=== PATIENT | male | born 1950 | race Caucasian/White ===

== ENCOUNTER → 2017-07-01 16:40 | Outpatient (CLI) | payer MEDICARE, SELFPAY ==
--- NOTE | 2017-07-01 08:00 | PROSBIL_PTH ---
PATIENT: JAMILAH PALAFOX LOC: [facility] U#:[id number] AGE/SX: 74/M ROOM: RE07/01/[address]: Dr. Carlos Wang MD : 1950 BED: DIS: SPEC #: [id number] RECD: 07/01/17 16:31 STATUS: JAMILA CECE #: [id number] NITHIN: 07/01/17 08:[address]: Carlos Wang DEPT: SURGICAL PATHOLOGY RECD BY: Jonas Dickinson ENTERED: 07/02/17 12:38 SP TYPE: PROST BX RIGO DR: Dr. Boy Verduzco III, MD Tissues: A - PROSTATE RIGHT B - PROSTATE RIGHT C - PROSTATE RIGHT D - PROSTATE LEFT E - PROSTATE LEFT F - PROSTATE LEFT Procedures: PROSTATE BX HEADER OPERATION: Prostate biopsy PRE-OP DIAGNOSIS: Elevated PSA TISSUE SUBMITTED: A - Right apex, B - Right mid, C - Right base, D - Left apex, E - Left mid, F - Left base MICROSCOPIC DIAGNOSIS A. Right prostate, apex, core biopsy: Adenocarcinoma: [place] grade: 8 (4+4) Cores involved: 1 out of 2 Tissue involved: 30% Greatest tumor length: 4.5 mm, discontinuous Perineural invasion: Positive B. Right prostate, mid, core biopsy: Adenocarcinoma: Jcarlos grade: 7 (4+3) Cores involved: 2 out of 2 Tissue involved: 35% Greatest tumor length: 6 mm C. Right prostate, base, core biopsy: Adenocarcinoma: Jcarlos grade: 7 (4+3) Cores involved: 2 out of 2 Tissue involved: 60% Greatest tumor length: 7 mm, discontinuous Perineural invasion: Positive D. Left prostate, apex, core biopsy: Adenocarcinoma: [place] grade: 7 (4+3) Cores involved: 2 out of 2 Tissue involved: 70% Greatest tumor length: 5.5 mm, discontinuous E. Left prostate, mid, core biopsy: Adenocarcinoma: [place] grade: 7 (4+3) Cores involved: 2 out of 2 Tissue involved: 95% Greatest tumor length: 10 mm, discontinuous Perineural invasion: Positive F. Left prostate, base, core biopsy: Adenocarcinoma: Jcarlos grade: 7 (4+3) Cores involved: 2 out of 2 Tissue involved: >95% Greatest tumor length: 12.5 mm, discontinuous Perineural invasion: Positive AM:christiano 07/03/17 MICROSCOPIC DESCRIPTION Slides are reviewed. GROSS DESCRIPTION A - Received is one container designated prostate, right apex. The specimen consists of two elongated fragments of light saucedo-white soft tissue measuring 0.5 and 1.5 cm in length and 0.1 cm in diameter. The specimen is totally submitted in one cassette. B - Received is one container designated prostate, right mid. The specimen consists of two elongated fragments of light saucedo-white soft tissue measuring 1.4 and 2 cm in length and 0.1 cm in diameter. The specimen is totally submitted in one cassette. C - Received is one container designated prostate, right base. The specimen consists of two elongated fragments of light saucedo-white soft tissue each measuring 1.5 cm in length and 0.1 cm in diameter. The specimen is totally submitted in one cassette. D - Received is one container designated prostate, left apex. The specimen consists of two elongated fragments of light saucedo-white soft tissue measuring 1 and 1.2 cm in length and 0.1 cm in diameter. The specimen is totally submitted in one cassette. E - Received is one container designated prostate, left mid. The specimen consists of two elongated fragments of light saucedo-white soft tissue each measuring 1.5 cm in length and 0.1 cm in diameter. The specimen is totally submitted in one cassette. F - Received is one container designated prostate, left base. The specimen consists of two elongated fragments of light saucedo-white soft tissue each measuring 1.8 cm in length and 0.1 cm in diameter. The specimen is totally submitted in one cassette. / SJ:rg 07/02/17 TC:0 CPT: G0146
== END ==
PROVIDERS: Family Provider Family Medicine; PCP Family Medicine; Visit Provider Urology
DX: R97.20 Elevated prostate specific antigen [PSA] (principal)
CPT/HCPCS: 88305; G0416

== ENCOUNTER → 2017-07-09 09:33 | Outpatient (CLI) | payer MEDICARE, SELFPAY ==
--- NOTE | 2017-07-09 09:59 | NM_ITS ---
CLINICAL: 67-year-old male with reported history of carcinoma of the prostate. WHOLE BODY 99m Tc MDP RADIONUCLIDE BONE SCINTIGRAPHY COMPARISON: None available FINDINGS: Following the intravenous administration of 2420 mCi of 99m Tc MDP, whole body bone images reveal: 1. Increased radiopharmaceutical concentration is identified in the sternoclavicular and acromioclavicular compartments of both shoulders, medial glenohumeral compartment of the right shoulder, bilateral elbow and wrist articulations, right-left hands, mid cervical spine posteriorly on the left, fifth lumbar vertebra posteriorly on the left and right, knees bilaterally. 2. The remaining skeletal structures are scintigraphically unremarkable with normal-appearing renal images and urinary bladder activity identified. Asymmetric increased uptake is noted in the greater trochanteric aspect of the left proximal femur most consistent with periostitis and/or trochanteric bursitis. NM/Bone Scan Whole Body IMPRESSION: 1. The increased radiopharmaceutical concentration identified in the bilateral shoulders, right and left elbows, wrist reticulations bilaterally, both hands, cervical and lumbar spine, knees bilaterally is most consistent with degenerative arthritis. 2. There is no definitive typical scintigraphic evidence of diffuse axial skeletal metastatic disease on the current examination. Electronically Signed: Hugo Fitzpatrick DO at 23:13 EDT Tel , Service support ,
== END ==
PROVIDERS: Family Provider Family Medicine; PCP Family Medicine; Visit Provider Urology
DX: C61 Malignant neoplasm of prostate (principal)
CPT/HCPCS: 78306

== ENCOUNTER → 2017-07-11 07:09 | Outpatient (CLI) | payer MEDICARE, SELFPAY ==
--- NOTE | 2017-07-11 07:12 | CT_ITS ---
STUDY: CT ABDOMEN AND PELVIS WITH CONTRAST REASON FOR EXAM: Male, 67 years old. Newly diagnosed prostate carcinoma. RADIATION DOSAGE (If Supplied By Facility): CTDIvol = ( 16.58 ) mGy, DLP = ( 1060.94 ) mGycm TECHNIQUE: Transaxial images were obtained from the dome of the diaphragm to the symphysis pubis without oral contrast. 100 ml of Isovue 300 contrast was administered. Sagittal and coronal images were reconstructed. Individualized dose optimization techniques were used for this CT. COMPARISON: None. FINDINGS: Mild degree of the increased markings at the lung bases suggestive of bibasilar dependent atelectasis. Focally calcified pleural plaques at the right lung base. The visualized portions of the heart are within normal limits. Normal liver. There are multiple small gallstones along the dependent portion of the gallbladder.. There are multiple benign calcified granulomata of the spleen. Normal pancreas. Normal bilateral adrenal glands. There is a 1.9 cm x 1.5 cm cyst along the medial aspect of the midportion of the left kidney as well as a 1.6 cm cyst along the lateral portion of the right kidney. There is also evidence of a 1.6 cm cyst in the inferior pole of the right kidney. There is a 2.3 cm x 2.1 cm cyst in the posterior medial aspect of the upper pole of the left kidney. There is a small hiatal hernia. Normal small intestine. There are multiple colonic diverticula consistent with diverticulosis. The appendix is visualized and appears normal. There is scattered atherosclerotic calcification of the abdominal aorta, without a demonstrated aneurysm. Normal inferior vena cava. Normal retroperitoneum. Normal urinary bladder. There is enlargement of the prostate gland. It measures 4.9 cm x 5.2 cm. This causes indentation at the bladder base. There is enlargement of the seminal vesicles bilaterally more prominent on the left side. Normal abdominal wall. There are degenerative changes of the visualized lumbar spine. Minimal anterior listhesis of L4 on L5 without spondylolysis. CT/Abdomen/Pelvis W IV Cont ONLY IMPRESSION: Bilateral renal cysts. Enlarged prostate with indentation of the bladder base. Enlargement of the seminal vesicles more prominent on the left side. Small gallstones. Electronically Signed: Howard Wahl MD at 8:53 EDT Tel [phone], Service support ,
[2017-07-11 07:31] LABS: CREATININE FINGERSTICK 0.9 mg/dL (0.70-1.30); EGFR FINGERSTICK > 60.0000 mL/min (>60)
== END ==
PROVIDERS: Family Provider Family Medicine; PCP Family Medicine; Visit Provider Urology
DX: Z01.812 Encounter for preprocedural laboratory examination (principal); C61 Malignant neoplasm of prostate
CPT/HCPCS: 74177; Q9967

== ENCOUNTER → 2017-08-15 10:55 | Outpatient (CLI) | payer MEDICARE, SELFPAY ==
--- NOTE | 2017-08-15 11:09 | MRI_ITS ---
STUDY: MR PELVIS WITH T WITHOUT CONTRAST REASON FOR EXAM: Male, 67 years old. PROSTATE CANCER staging, prev bx, TECHNIQUE: Standardized fat and water weighted pulse sequences were obtained in all 3 orthogonal planes, pre-and post contrast administration. 10 ml of Gadavist contrast material was administered intravenously for the contrast portion of the examination. COMPARISON: CT Abdomen/Pelvis Jul 11 2017 7:20am FINDINGS: Normal urinary bladder. Normal visualized colon. Degenerative findings of the symphysis pubis. Prostate gland: The anterior fibromuscular stroma and central zone appear intact. The central gland demonstrates normal signal characteristics. Rectum is unremarkable. Levator ani muscle is not disrupted. The penile bulb is embraced by an intact inferomedial levator ani muscle. No areas of abnormal enhancement. Normal visualized RIGHT neurovascular bundles. A 48 x 26mm focal lesion in the left peripheral zone has mixed hyperintense (some have low and some areas have high signal) signal on the DWI and it is hypointense on ADC is highly suspicious for cancer. Axial T2WI shows a large hypointense lesion (erased charcoal sign) in the left peripheral zone with extension into the left seminal vesicles. The lesion shows a broad-base contact and bulging of the capsule. There is extension into the left transitional zone. There is mass effect and displacement of the urethra to the right side. There is abnormal signal in the urethra concerning for invasion. There is abutment along the left Denonvilliers fascia. There is concern for invasion into the left neurovascular bundle. There is no pelvic fluid. There is no pelvic mass lesion or lymphadenopathy. Normal visualized pelvic arteries. Normal osseous structures. Normal abdominal wall. MRI/Pelvis W/WO Contrast IMPRESSION: There is a large left peripheral zone mass with extension into the left transitional zone. There is extracapsular extension into the left seminal vesicle and likely into the left neurovascular bundle. There is also concern for invasion into the urethra. Electronically Signed: Giovanny Wiggins MD at 20:55 EDT , Service support ,
== END ==
PROVIDERS: Family Provider Family Medicine; PCP Family Medicine; Visit Provider Urology
DX: C61 Malignant neoplasm of prostate (principal)
CPT/HCPCS: 72197; A9585

== ENCOUNTER 2017-08-21 07:30 | Inpatient (IN) | payer MEDICARE, SELFPAY ==
[2017-08-15 14:07] VITALS: BP 117/77; PULSE 63; RESP 17; TEMP 36.6; O2SAT 97; BMI 28.8
--- NOTE | 2017-08-15 14:20 | SDCEKG_ITS ---
Test Reason : Blood Pressure : / mmHG Vent. Rate : 060 BPM Atrial Rate : 060 BPM P-R Int : 178 ms QRS Dur : 100 ms QT Int : 418 ms P-R-T Axes : 018 013 033 degrees QTc Int : 418 ms Normal sinus rhythm Normal ECG Confirmed by DARIEN SANDOVAL, BRINA ([id number]), senior technical editor SON BOONE ([id number]) on 08/19/2017 3:56:35 PM Referred By: Carlos Wang Confirmed By:BRINA LEDEZMA MD
[2017-08-15 14:56] LABS: Hematocrit 41.2 % (40-54); Hemoglobin 13.9 g/dl (13.0-16.5); Mean Corp Hgb Conc 33.7 g/gl (32-36); Mean Corpuscular Hgb 29.6 pg (27.0-32.0); Mean Corpuscular Volume 87.7 fL (80-94); Mean Platelet Vol. 10.6 fl (6.2-12.0); Platelet Count 178 K/mm3 (150-450); RBC Distribution Width CV 14.1 % (11.6-14.6); White Blood Count 4.9 K/mm3 (4.4-11.0)
[2017-08-15 15:01] LABS: Scan Indicated on CBC? Y/N NO
[2017-08-21] VITALS (10 sets, daily range): BP systolic 124–143; BP diastolic 63–91; PULSE 64–120; RESP 14–16; TEMP 36.2–37.1; O2SAT 93–99; BMI 28.8
--- NOTE | 2017-08-21 | PROST_PTH ---
PATIENT: JAMILAH PALAFOX LOC: [facility] U#:[id number] AGE/SX: 67/M ROOM: [facility] RE08/21/[address]: Dr. Carlos Wang MD : 1950 BED: 1 DIS: 08/23/2017 SPEC #: [id number] RECD: 08/21/17 12:33 STATUS: JAMILA CECE #: [id number] NITHIN: 08/21/17 00:[address]: Carlos Wang DEPT: SURGICAL PATHOLOGY RECD BY: Patience Yu ENTERED: 08/21/17 14:27 SP TYPE: PROSTATE OTHR DR: Dr. Boy Verduzco III, MD Tissues: A - Prostate, NOS B - Prostate, NOS C - Prostate, NOS D - Lymph node of pelvis, NOS E - Lymph node of pelvis, NOS F - Adipose tissue Procedures: Frozen Section (charge) Surgery Specimen Level IV Surgery Specimen Level HEADER OPERATION: Laparoscopic robotic radical prostatectomy PRE-OP DIAGNOSIS: Prostate cancer, elevated PSA TISSUE SUBMITTED: A ? Apical margin sent to lab for FS, B ? Apical margin #2 sent to lab for FS, C ? Prostate, D ? Right pelvic lymph node, E ? Left pelvic lymph node, F ? Fat over prostate FROZEN SECTION DIAGNOSIS A. Apical margin, biopsy: Positive for carcinoma. B. Apical margin #2, biopsy: Negative for carcinoma. SJ:christiano 08/21/17 MICROSCOPIC DIAGNOSIS A. Apical margin, biopsy: Positive for carcinoma. B. Apical margin #2, biopsy: Negative for carcinoma. C. Prostate, radical prostatectomy: Prostatic adenocarcinoma. See cancer summary below. D. Right pelvic lymph node, biopsy: One lymph node, negative for metastatic carcinoma. E. Left pelvic lymph node, biopsy: One lymph node, negative for metastatic carcinoma. F. Fat over prostate: Fragments of mature adipose tissue, negative for carcinoma. PROSTATE CANCER (RADICAL) SUMMARY: (Including specimens A-F) Procedure ? radical prostatectomy Prostate size ? 6 cm transversely, 4.5 cm anterior-posteriorly, 5 cm craniocaudally Prostate weight ? 84 gm Lymph node sampling ? pelvic lymph node dissection, right and left Histologic type ? adenocarcinoma (acinar) Histologic grade (Princeton Pattern): Primary pattern - 5 Secondary pattern - 4 Tertiary pattern ? not applicable Total Princeton score - 9 Tumor Quantitation: Proportion (%) of prostate involved by tumor ? 70-80% Extraprostatic extension - present Seminal vesicle invasion ? present, bilateral Margins ? Basal margin is involved by the tumor. See comment. Treatment effect on carcinoma ? no known presurgical therapy. Lymph-Vascular invasion ? not identified Perineural invasion ? present, frequent Regional lymph nodes: Number examined - 2 Number involved - 0 Distant metastasis ? not applicable Additional pathologic findings - - Benign prostatic hyperplasia. - A calcified nodule, prostate right lobe, see comment.. - Seminal vesicle, left ? a calcified nodule, see comment.. Ancillary studies ? not performed. PATHOLOGIC STAGE: pT3b pN0 Mx The above summary is in compliance with [employer] [place] [employer] (CAP) Cancer Protocols Checklist and [place] [employer] Committee on Cancer (AJCC), Staging Manual, 8th Ed. MACK:christiano 08/27/17 COMMENT The tumor is present from apical to basal portion of the prostate involving right and left lobes. Apical and basal margin in the prostate specimen are positive for tumor; however, specimen ?B? apical margin is negative for carcinoma. Calcified nodules on surface of the prostate and seminal vesicle may represent calcified and obliterated blood vessels. Please make reference to previous specimen ([id number]), right prostate and left prostate,, apex, mid, base with diagnoses of adenocarcinoma. MICROSCOPIC DESCRIPTION Slides are reviewed. GROSS DESCRIPTION A - Received fresh for frozen section diagnosis labeled with the patient's name is a specimen designated apical margin. The specimen consists of a piece of saucedo soft tissue measuring 1 x 0.5 x 0.2 cm. The entire specimen is submitted for frozen section diagnosis in one cassette. / MACK:christiano 08/21/17 B - Received fresh for frozen section diagnosis labeled with the patient's name is a specimen designated apical margin #2. The specimen consists of a piece of saucedo soft tissue measuring 0.4 x 0.2 x 0.1 cm. The entire specimen is submitted for frozen section diagnosis in one cassette. / SJ:rg 08/21/17 C - Received in fixative is one container labeled with the patient's name and designated prostate. The specimen consists of a radical prostatectomy specimen consisting of prostate and bilateral seminal vesicles weighing 84 gm. The prostate measures 6 cm transversely, 4.5 cm anterior-posteriorly and 5 cm craniocaudally. The right seminal vesicle measures 2.5 x 1.5 x 0.5 cm and right vas deferens measures 3 cm in length and 0.4 cm in diameter. The left seminal vesicle measures 3 x 2 x 0.6 cm and the left vas deferens measures 2.5 cm in length and 0.3 cm in diameter. A nodule is noted on the right lateral surface in the middle portion of the prostate. This nodule is inked orange. The prostate is inked as follows: anterior surface ? yellow, posterior surface ? black, right lateral surface ? blue, left lateral surface ? green. The right seminal vesicle and vas deferens is inked as follows: anterior ? blue, posterior ? black. The left seminal vesicle and vas deferens is inked as follows: anterior ? green, posterior ? black. Serial sections do not reveal any obvious mass lesion. 1[address] [place] sections are submitted in 20 cassettes as follows: 1 - right seminal vesicle and vas deferens, 2 ? left seminal vesicle and vas deferens, 3 ? nodule on the right lateral lobe of the prostate, submitted after decalcification, 4 - apical margin, enface, 5 ? bladder base margin, enface, 6-11 ? apical portion prostate, 12-15 ? middle portion prostate, 16-20 ? basal portion prostate (cassette 20 contains the most basal portion of the prostate. Sections will be submitted after additional fixation. / SJ:rg 08/22/17 D - Received in fixative is one container labeled with the patient's name and designated right pelvic lymph node. The specimen consists of three pieces of yellow adipose tissue measuring in aggregate 3.5 x 3 x 1.5 cm. One possible lymph node is identified measuring 3 cm in greatest dimension. The entire specimen is submitted in three cassettes as follows: 1 & 2 ? bisected lymph node and attached adipose tissue, 3 ? rest of the specimen. Sections will be submitted after additional fixation. / SJ:christiano 08/22/17 E - Received in fixative is one container labeled with the patient's name and designated left pelvic lymph node. The specimen consists of a piece of yellow adipose tissue measuring 4 x 3 x 1 cm. One lymph node is identified measuring 4.5 cm in greatest dimension. The entire specimen is submitted in three cassettes. Cassettes 1 & 2 contain the lymph node. Sections will be submitted after additional fixation. / SJ:christiano 08/22/17 F - Received in fixative is one container labeled with the patient's name and designated fat over prostate. The specimen consists of two pieces of yellow adipose tissue measuring 4 x 3.5 x 1.5 cm. No mass lesion is identified. The entire specimen is submitted in four cassettes. / SJ:christiano 08/22/17 TC:0 CPT: 70687, 31223 x5, 65865 x2, 35706
[2017-08-21] MEDS: Cefazolin 2 GM in 0.9% Normal Saline 100 ML IV (09:00)
[2017-08-21] MEDS: Bupivacaine Mpf 0.5% 30 ML VIAL (09:30)
--- NOTE | 2017-08-21 14:32 | OP.PCM_ITS ---
Problem List (1) Prostate cancer Status: Acute Report of Operation Date of Procedure: 08/21/17 Pre-Operative Diagnosis: Prostate cancer Post-Operative Diagnosis: Same Surgery/Procedure Performed:: Laparoscopic robotic assisted radical prostatectomy, bilateral lymph node dissection, EMG monitoring of the pelvic lymph nerves, suture suspension of the urethra and bladder neck reconstruction. Description of Surgical Findings:: 67-year-old male with a very large prostate was found to have high-grade invasive disease we talked about the options of management including upfront radiation and hormone deprivation therapy we also talked about the options of doing surgery to remove as much of the cancer as possible with the possibility that he may need more treatment after surgery such as hormone therapy, chemotherapy and radiation treatments. We talked about the risks of surgery including bleeding infection risk of anesthesia, risk of incontinence and loss of erections. 67-year-old male taken back to the operating room after smooth induction of general anesthesia he is placed supine on the table, penis and testicles and the abdomen were prepped and draped in usual sterile fashion, patient was placed flat on the table we made sure that all the pressure points are padded and he was secured to the table properly, the abdomen she prepped and draped in usual sterile fashion, I then placed a Coombs catheter into the bladder without difficulties, inflated 10 cc in the balloon, then made an incision above the umbilicus about 10 mm in size and dissected down to the fascia and then placed the Veress needle into the peritoneal cavity I then entered inflated the peritoneal cavity with CO2 gas and then placed my camera trocar is a little difficult to get through the fascia but then once I got and it was okay I then placed my #1 robot right arm, my #2 on the left arm, May 3 arm on the left side , place a air seal port resection and also an extra suction port for the assistant prosecuting attorney. I first reflected the sigmoid colon off the lateral wall to allow to retract out of the pelvis I then held back the sigmoid colon from the pelvis and dissected down into the pelvis I identified the right vas deferens and traces all the way down to the pelvis opening up the fascia and the peritoneum over the vas deferens I then dissected out the vas deferens on the right side and the seminal vesicles in the right side I then went to the left side and identified the left seminal vesicle and the left vas deferens transected through both vas deferens dissected the seminal vesicles free on both sides and then was able to get a space underneath the prostate above the rectum into the rectal fat going to the apex,. I then pulled out of the pelvis I dropped the bladder down with the bladder and extension with the fourth arm. And then I freed up all the space of Retzius above the bladder. I then went to the right side and identified the lymph node bundle on the right side of the pelvic wall I used clips and sharp dissection to dissect the lymph nodes off the pipe blanks cut off saw operator space using the pelvic bone sidewall the iliac vein and the obturator nerve is my landmarks all the lymph node tissue was cleaned off inside the landmarks. This was handed off as a specimen for the nurse to give as a permanent section no frozen was done. I then went to the left side and dissected out the lymph node tissue in the left pipe blanks cut off saw operator side identified the left iliac vein the lateral sidewall the left obturator nerve dissected all the lymph node tissue off here use clips and electrocautery. After lymphocytes dissection was done this took about 20-30 minutes on each side for a meticulous dissection I then went to the bladder and prostate I incised the endopelvic fascia and the right and left side dissected up to the apex identified in the dorsal vein complex and put a stitch in the dorsal vein complex I then pulled back between the bladder and the prostate and decided to do a fairly wide dissection staying far away from the prostate open of the bladder neck fairly large and then identified the prostate and then identified the junction between the prostate and the bladder posteriorly and I dissected down until I encountered the vas deferens and seminal vesicle posteriorly. Then the vas deferens and vessels are elevated up we then placed the EMG electrodes into the pelvis of the pelvis on the right side to the pelvis on the left side we stimulated the vascular bundle on the left side and the right side we identified the action potential both sides to trace out the nerves in order to try to do nerve sparing on both sides. I did start with the dissection on the left side he had high-grade invasive disease in the left side so purposely went with wide dissection into the fat into the perirectal fat working my way very wide and laterally to make sure I take all the tissue on that side all the way up to the apex this is quite a difficult dissection took a long time to slowly dissected here especially as I was getting very close to the rectal fibers. I then went to the right side on the right side we did a nerve sparing dissection I clipped to the pedicles on the right side and then was able to free the the neurovascular bundle off the prostate and the right side I then identified the longitudinal muscle fibers of the rectum that was stuck right into the prostate took some time to very carefully dissect off these longitudinal fibers off the rectum. Took some time to very meticulously dissect the rectus longitudinal rectal fibers off the rectum and make sure that there is no injury to the rectum I then he was able to twist the prostate and then on the left side dissected more again making sure that the longitudinal fibers of the rectal fibers are not injured very close tight dissection here and on that side then I transected through the dorsal vein complex and then placed an extra stitch in the dorsal vein complex during the dissection I also checked the EMG electrodes both sides were able to be spared at the end of dissection there was some decreased quality especially the left side going through a wide dissection. I then transected through the apical part of the prostate going down to the urethra transected to the urethra I then took a frozen section off the above the urethra and this came back positive with cancer cells so I sent off a second frozen section deeper and this came back negative to ensure completely negative margin I then transected the urethra and then posteriorly I dissected very carefully to make sure that I was off the rectum the fibers were coming off the triangle extension of the tenotomies fascia and the posterior aspect. After freeing up the prostate completely I was able to remove it out of the pelvis we irrigated copiously obtained good hemostasis make sure there is no bleeding we lower the pressure and watch the dorsal vein and the pedicles make sure there is no bleeding. I then did a reconstruction of the bladder neck and right a suture to close of the bladder neck we did a reverse tennis racquet closure closing the bladder neck posteriorly working up anteriorly once the bladder neck closure of the bladder was done then I proceeded with a suture suspension of the urethra the urethra is suspended in order to prevent incontinence and then we did an anastomosis between the urethra and the bladder neck put a catheter in and over the catheter as I sutured the bladder neck reconstructed tennis racquet to the urethra in a watertight fashion at the end of the anastomosis that I filled the bladder with water and there was no leakage whatsoever. Once we have completed the suture suspension of the urethra and the reconstruction and the anastomosis then we exchanged the Endo Catch back to the camera port I then extracted the prostate to the camera port and then we closed the fascia and the umbilical we did this transverse closure and then we closed the fascia for the air seal port all the ports removed everything all the needles and sponges and sticks were accounted for the count was complete. We then closed all the incisions with subcuticular stitches. Patient's anesthesia was reversed he was extubated patient looked good making good urine taken back to PACU in good condition final section of the apical margin was negative no frozens were sent on the lymph node tissue but this was sent off prostate was fairly very enlarged very difficult dissection on the left side did a wide dissection right side nerve sparing. And I will talk to the family regarding the findings. Type of Anesthesia:: General Drains: COOMBS Estimated Blood Loss (mL): 500CC - Admit VTE Documentation VTE Present on Admission: No VTE Mechan Device Prophylaxis: SCD's VTE Pharm Prophylaxis ordered?: No Reason prophylaxis not ordered:: Treatment Not Indicated
[2017-08-21] MEDS: 0.9% Normal Saline 1,000 ML 125 ML IV ×2 (15:17→22:11)
[2017-08-21 16:17] LABS: Hematocrit 38.5 % (40-54); Hemoglobin 12.7 g/dl (13.0-16.5); Mean Corpuscular Hgb 29.4 pg (27.0-32.0); Mean Corpuscular Volume 89.1 fL (80-94); Mean Platelet Vol. 10.5 fl (6.2-12.0); Platelet Count 154 K/mm3 (150-450); RBC Distribution Width CV 14.1 % (11.6-14.6); RBC Distribution Width SD 46.5 fl (35.1-43.9); Red Blood Count 4.32 M/mm3 (4.6-6.2)
[2017-08-21 16:24] LABS: Scan Indicated on CBC? Y/N NO
[2017-08-21 16:34] LABS: Anion Gap 9 (5-15); BUN 11 mg/dL (7-18); BUN/Creat Ratio 10.5 RATIO (10-20); Calcium,Total 7.9 mg/dL (8.5-10.1); Chloride 108 mmol/L (98-107); Creatinine, Serum 1.05 mg/dL (0.70-1.30); EST Glomerular Filtration Rate 74 mL/min (>60); Est Glom Filt Rate - Afr Amer 90 mL/min (>60); Glucose 137 mg/dL (74-106); Potassium 3.8 mmol/L (3.5-5.1); Sodium Level 142 mmol/L (136-145)
[2017-08-21] MEDS: Cefazolin 1 GM/50 ML BAG IV (17:20)
[2017-08-21] MEDS: Docusate Sodium 100 MG Capsule 200 MG PO (21:40)
[2017-08-21] MEDS: HYDROcodone Bitartrate/Apap 5/325 Tablet PO (22:11)
[2017-08-22] MEDS: Cefazolin 1 GM/50 ML BAG IV (00:36)
[2017-08-22 04:13] VITALS: BP 114/59; PULSE 107; RESP 16; TEMP 37; O2SAT 97
[2017-08-22 05:57] LABS: Hematocrit 34.1 % (40-54); Hemoglobin 11.3 g/dl (13.0-16.5); Mean Corp Hgb Conc 33.1 g/gl (32-36); Mean Corpuscular Hgb 29.7 pg (27.0-32.0); Mean Corpuscular Volume 89.7 fL (80-94); Platelet Count 163 K/mm3 (150-450); RBC Distribution Width CV 14.4 % (11.6-14.6); RBC Distribution Width SD 46.1 fl (35.1-43.9); White Blood Count 9.4 K/mm3 (4.4-11.0)
[2017-08-22 06:03] LABS: Scan Indicated on CBC? Y/N NO
[2017-08-22 06:15] LABS: Anion Gap 9 (5-15); BUN 10 mg/dL (7-18); BUN/Creat Ratio 12.1 RATIO (10-20); Calcium,Total 7.5 mg/dL (8.5-10.1); Chloride 109 mmol/L (98-107); Creatinine, Serum 0.83 mg/dL (0.70-1.30); EST Glomerular Filtration Rate 98 mL/min (>60); Est Glom Filt Rate - Afr Amer 118 mL/min (>60); Glucose 100 mg/dL (74-106); Potassium 4.2 mmol/L (3.5-5.1); Sodium Level 143 mmol/L (136-145)
[2017-08-22] MEDS: 0.9% Normal Saline 1,000 ML 125 ML IV (06:26)
[2017-08-22 06:42] VITALS: O2SAT 93
--- NOTE | 2017-08-22 07:44 | PCM.PROGNOTE ---
Patient Problems: Active and Suspected Problems Prostate cancer (Acute) Subjective: D doing well after surgery, pain is under control, abdomen soft and benign,. - Physical Exam General: Alert, Oriented x3, Cooperative HEENT: Atraumatic, PERRLA, EOMI, Normocephalic Neck: Supple, No JVD, Negative Carotid Bruits Lungs: Clear to auscultation, Normal air movement Cardiovascular: Regular rate, No murmurs Abdomen: Bowel Sounds Present, Soft, Non Tender Extremities: No edema, Capillary Refill Less than 3 Seconds Skin: No rashes, No breakdown Musculoskeletal: No Tenderness to Palpation of Joints or Extremities Neurological: Cranial nerves II-XII grossly intact Psych/Mental Status: Normal Affect, Appropriate Vital Signs Temp Pulse Resp BP Pulse Ox 98.6 F 107 H 16 114/59 L 97 08/22/17 04:13 08/22/17 04:13 08/22/17 04:13 08/22/17 04:13 08/22/17 04:13 Oxygen Flow Rate (L/min) 2 Oxygen Delivery Method Room Air Weight: 88.7 kg Body Mass Index (BMI) 28.8 Intake and Output for Last 24 Hours 08/20/17 08/21/17 08/22/17 23:59 23:59 23:59 Intake Total 2274 / 2274 1815 / 1815 Output Total 860 / 860 1300 / 1300 Balance 1414 / 1414 515 / 515 Laboratory Tests Past 24 Hrs 08/21/17 08/21/17 08/22/17 15:54 15:54 05:30 WBC 12.0 H 9.4 RBC 4.32 L 3.80 L Hgb 12.7 L 11.3 L Hct 38.5 L 34.1 L MCV 89.1 89.7 MCH 29.4 29.7 MCHC 33.0 33.1 RDW 14.1 14.4 RDW Differential 46.5 H 46.1 H Plt Count 154 163 MPV 10.5 11.0 Sodium 142 Potassium 3.8 Chloride 108 H Carbon Dioxide 25.0 Anion Gap 9 BUN 11 Creatinine 1.05 Estim Creat Clear Calc 66.40 Est GFR (MDRD) Af Amer 90 Est GFR (MDRD) Non-Af 74 BUN/Creatinine Ratio 10.5 Glucose 137 H Calcium 7.9 L 08/22/17 05:30 WBC RBC Hgb Hct MCV MCH MCHC RDW RDW Differential Plt Count MPV Sodium 143 Potassium 4.2 Chloride 109 H Carbon Dioxide 25.0 Anion Gap 9 BUN 10 Creatinine 0.83 Estim Creat Clear Calc 84.00 Est GFR (MDRD) Af Amer 118 Est GFR (MDRD) Non-Af 98 BUN/Creatinine Ratio 12.1 Glucose 100 Calcium 7.5 L Medical Necessity - Tobacco Use Smoking Status: Current some day smoker Tobacco Use: Cigars Assessment/Plan All Active Problems Prostate cancer (Acute) Advance to regular diet, Hep-Lock IV fluids, Montes care teaching, anticipate discharge tomorrow morning.
[2017-08-22 10:00] VITALS: BP 137/64; PULSE 99; RESP 16; TEMP 36.7; O2SAT 95
[2017-08-22] MEDS: Docusate Sodium 100 MG Capsule 200 MG PO ×2 (10:02→21:18)
[2017-08-22] MEDS: Atorvastatin Calcium 40 MG Tablet PO (10:02)
[2017-08-22] MEDS: Lisinopril 5 MG Tablet PO (10:03)
[2017-08-22] MEDS: HYDROcodone Bitartrate/Apap 5/325 Tablet PO ×4 (10:05→23:16)
--- NOTE | 2017-08-22 12:21 | CASEMGMT ---
RN SHAUN Face to Face with patient for initial transition planning/care coordination assessment. RN CM introduced self and role at [facility]. Patient lying in bed, alert and oriented, at bedside. Patient willing to participate in assessment and is able to answer all questions appropriately. Care providers, pharmacy, and demographics verified. See link attached. Patient wishes to discharge home, denies need for home health at this time. Patient states he has no further needs or concerns at this time. CM to follow for discharge planning needs that may arise. Disposition Plan: Patient to discharge home with family support and follow-up plans in place.
--- NOTE | 2017-08-22 13:39 | NURSING ---
Patient ambulating around unit.
[2017-08-22 16:00] VITALS: BP 134/77; PULSE 97; RESP 18; TEMP 36.8; O2SAT 98
[2017-08-22 21:13] VITALS: BP 147/71; PULSE 104; RESP 16; TEMP 37.3; O2SAT 94
[2017-08-23 02:41] VITALS: TEMP 37.3
[2017-08-23] MEDS: Ondansetron 4 MG/2 ML Vial IV (02:51)
[2017-08-23] MEDS: 0.9% NaCl Peripheral Flush Adult/Peds IV (02:51)
[2017-08-23] MEDS: Ketorolac 15 MG/ML Vial IV (02:51)
[2017-08-23 02:57] VITALS: BP 179/88; PULSE 95; RESP 18; TEMP 37.3; O2SAT 92
[2017-08-23 04:40] VITALS: BP 144/83
[2017-08-23] MEDS: HYDROcodone Bitartrate/Apap 5/325 Tablet PO (06:08)
[2017-08-23] MEDS: Metoclopramide 10 MG/2 ML Vial IV (07:37)
--- NOTE | 2017-08-23 08:42 | PCM.DC.URO ---
Discharge Diet: Light diet - advance as tolerated Discharge Activity: May Not Drive Call your doctor if your incision/area has: Continuous Slow Oozing, Sudden Increased Bleeding, Increased Pain/ Swelling, Increased Redness, Foul Smelling Discharge, Swelling at the incision site Call your doctor if you observe: Fever of 101 or Higher, Inability to have a bowel movement, Uncontrolled pain Suture Line Care: Avoid Pulling/Pushing Instructions: Discharge Instructions for Radical Prostatectomy Allergies/Adverse Reactions: Allergies No Known Allergies Allergy (Verified 08/15/17 14:01) Medications to take at Discharge Atorvastatin Calcium [Lipitor] 40 mg PO DAILY 08/15/17 Lisinopril [Zestril] 5 mg PO DAILY 08/15/17 Ciprofloxacin [Cipro] 500 mg PO BID #20 tab 08/23/17 Docusate Sodium [Colace] 100 mg PO BID #20 cap 08/23/17 Hydrocodone/Acetaminophen [[place] 5-325 Tablet] 1 ea PO Q4H PRN PRN 7 Days #14 tab 08/23/17 The following prescriptions were given: Hydrocodone/Acetaminophen [[place] 5-325 Tablet] 1 ea PO Q4H PRN PRN 7 Days #14 tab PRN Reason: Pain Ciprofloxacin [Cipro] 500 mg PO BID #20 tab Docusate Sodium [Colace] 100 mg PO BID #20 cap Primary Care Physician: Boy Verduzco III, MD [Primary Care Provider] - Test Results: Test results from this visit will be discussed in further detail at your follow-up appointment, if applicable. Please Follow Up With: Carlos Wang MD When: 2 weeks, please call to make an appointment.
[2017-08-23 09:00] VITALS: BP 150/75; PULSE 109; RESP 18; TEMP 36.8; O2SAT 92
--- NOTE | 2017-08-23 09:10 | PCM.DC.SUM ---
Discharge Date and Diagnosis - Problem List Patient Problems: Active and Suspected Problems Prostate cancer (Acute) Date of Admission: 08/21/17 Date of Discharge: 08/23/17 - Primary Discharge Diagnosis Active and Suspected Problems Prostate cancer (Acute) Hospital Course and Treatment Operations: - - Robotic radical prostatectomy Procedures: None Summary of Care Provided: The patient is a 67 year old male who underwent a robotic radical prostatectomy for prostate cancer, postoperative day #1 he did really well advance to regular diet, postoperative day #2 the past gas abdomen soft and benign tolerating regular diet fluids were hep-locked. Plan to discharge home with Montes catheter. Discharge Diet: Light diet - advance as tolerated Discharge Activity: May Not Drive Call your doctor if your incision/area has: Continuous Slow Oozing, Sudden Increased Bleeding, Increased Pain/ Swelling, Increased Redness, Foul Smelling Discharge, Swelling at the incision site Call your doctor if you observe: Fever of 101 or Higher, Inability to have a bowel movement, Uncontrolled pain Suture Line Care: Avoid Pulling/Pushing Home Medications: Medications to take at Discharge Atorvastatin Calcium [Lipitor] 40 mg PO DAILY 08/15/17 Lisinopril [Zestril] 5 mg PO DAILY 08/15/17 Ciprofloxacin [Cipro] 500 mg PO BID #20 tab 08/23/17 Docusate Sodium [Colace] 100 mg PO BID #20 cap 08/23/17 Hydrocodone/Acetaminophen [[place] 5-325 Tablet] 1 ea PO Q4H PRN PRN 7 Days #14 tab 08/23/17 Following Prescrptions Were Given to Patient: Hydrocodone/Acetaminophen [[place] 5-325 Tablet] 1 ea PO Q4H PRN PRN 7 Days #14 tab PRN Reason: Pain Ciprofloxacin [Cipro] 500 mg PO BID #20 tab Docusate Sodium [Colace] 100 mg PO BID #20 cap Primary Care Physician: Boy Verduzco III, MD [Primary Care Provider] - Please Follow Up With: Carlos Wang MD When: 2 weeks, please call to make an appointment. Patient Instructions: Discharge Instructions for Radical Prostatectomy Medical Necessity - Tobacco Use Smoking Status: Current some day smoker Tobacco Use: Cigars Meaningful Use Info Meaningful Use Diagnoses (Choose all that apply): None applicable
[2017-08-23] MEDS: Docusate Sodium 100 MG Capsule 200 MG PO (10:03)
[2017-08-23] MEDS: Lisinopril 5 MG Tablet PO (10:03)
[2017-08-23] MEDS: Atorvastatin Calcium 40 MG Tablet PO (10:03)
== END 2017-08-23 10:34 | disposition home or self-care (01) | DRG 708 ==
LOC: ACINP 07:31 → MS3 09:23
PROVIDERS: Anesthesiology; Admitting Provider Urology; Family Provider Family Medicine; PCP Family Medicine; Visit Provider Urology
PROC: 0VT04ZZ Resection of Prostate, Percutaneous Endoscopic Approach (ICD-10-PCS; CPT 55866; principal; 2017-08-21 09:05)
DX: C61 Malignant neoplasm of prostate (principal); F17.290 Nicotine dependence, other tobacco product, uncomplicated
CPT/HCPCS: 36415; 80048; 85027; 86850; 86900; 88304; 88305; 88307; 88309; 88331; 93005; J7030; J7120; A4216; J2405

== ENCOUNTER → 2017-11-07 13:49 | Outpatient (CLI) | payer MEDICARE, SELFPAY ==
[2017-11-07 16:06] LABS: PSA,Total- Diagnostic 0.58 ng/mL (0.0-4.0)
== END ==
PROVIDERS: Family Provider Family Medicine; PCP Family Medicine; Referring Provider Urology; Visit Provider Urology
DX: C61 Malignant neoplasm of prostate (principal)
CPT/HCPCS: 36415; 84153

== ENCOUNTER 2017-12-06 10:02 | Day surgery (SDC) | payer MEDICARE, SELFPAY ==
[2017-12-06 10:36] VITALS: BP 131/82; PULSE 77; RESP 18; TEMP 36.6; O2SAT 96; BMI 29.6
--- NOTE | 2017-12-06 11:45 | US_ITS ---
PROCEDURE: Ultrasound Guided marker placement in the prostate. CLINICAL HISTORY: Male, 67 years old. Prostate cancer. TECHNIQUE: Under direct sonographic guidance, the urologist placed 3 gold markers within the prostate. US/Intraoperative Ultrasound IMPRESSION: Under direct sonographic visualization, the urologist placing 3 gold markers within the prostate. Electronically Signed: Howard Wahl MD at 14:37 EDT Tel [phone], Service support ,
--- NOTE | 2017-12-06 12:17 | DCINST_ITS ---
Discharge Diet: Light diet - advance as tolerated Discharge Activity: No Restrictions Allergies/Adverse Reactions: Allergies No Known Allergies Allergy (Verified 11/29/17 11:06) Medications to take at Discharge Atorvastatin Calcium [Lipitor] 40 mg PO DAILY 08/15/17 Lisinopril [Zestril] 5 mg PO DAILY 08/15/17 Bicalutamide [Casodex] 50 mg PO DAILY 11/29/17 Calcium Carbonate [Calcium] 1,200 mg PO DAILY 11/29/17 Primary Care Physician: Boy Verduzco III, MD [Primary Care Provider] - Test Results: Test results from this visit will be discussed in further detail at your follow- up appointment, if applicable. Please Follow Up With: Carlos Wang MD When: keep appt for next Injection.
[2017-12-06] MEDS: Cefazolin 2 GM in 0.9% Normal Saline 100 ML IV (12:21)
--- NOTE | 2017-12-06 12:40 | PCM.OPRPT ---
Report of Operation Date of Procedure: 12/06/17 Pre-Operative Diagnosis: Prostate cancer Post-Operative Diagnosis: Same Surgery/Procedure Performed:: Transrectal ultrasound guided placement of 3 fiducial markers Description of Surgical Findings:: 67-year-old male taken back to the operating room after smooth induction of anesthesia he was placed supine on the table and then in dorsal lithotomy position we introduced a ultrasound probe into the rectum and identified the bladder which was full of urine and the sphincter complex I then placed one gold fiducial marker next to the bladder on the left side and 2 fiducial markers at different planes next the bladder on the right side after the placement of fiducial markers was completed I ultrasound with the probe and could see the markers in good position remove the ultrasound probe and the patient's anesthetic was reversed taken back to PACU good condition he is going to proceed with radiation therapy. Type of Anesthesia:: General Drains: none - Admit VTE Documentation VTE Present on Admission: No
[2017-12-06 12:51] VITALS: BP 103/75; BP 131/82; PULSE 75; RESP 16; TEMP 36.5; O2SAT 94
[2017-12-06 13:00] VITALS: BP 108/66; BP 131/82; PULSE 62; RESP 16; O2SAT 93
[2017-12-06 13:08] VITALS: BP 109/64; BP 131/82; PULSE 74; RESP 16; TEMP 36.4; O2SAT 93
[2017-12-06 13:38] VITALS: BP 131/82
== END 2017-12-06 13:39 | disposition home or self-care (01) ==
LOC: SDC 10:07 → AC 10:11
PROVIDERS: Family Provider Family Medicine; PCP Family Medicine; Referring Provider Urology; Visit Provider Urology
PROC: (CPT 55876; principal; 2017-12-06 11:50)
DX: C61 Malignant neoplasm of prostate (principal); Z48.816 Encounter for surgical aftercare following surgery on the genitourinary system; E78.00 Pure hypercholesterolemia, unspecified; I10 Essential (primary) hypertension; F17.200 Nicotine dependence, unspecified, uncomplicated
CPT/HCPCS: 55876; 76998; J7120; J2405

== ENCOUNTER → 2017-12-23 13:31 | Outpatient (CLI) | payer MEDICARE, SELFPAY ==
[2017-12-23 15:51] LABS: Absolute Lymphocyte Count 1.63 X10^3/ul (0.83-4.51); Basophil# 0.06 X10^3/uL; Basophil% 1.1 % (0-1); Eosinophil# 0.26 X10^3/uL; Eosinophils% 4.7 % (0-5); Hematocrit 42.1 % (40-54); Lymphocyte # 1.63 X10^3/ul (4.0); Lymphocyte % 29.6 % (19-41); Mean Corp Hgb Conc 33.3 g/gl (32-36); Mean Corpuscular Hgb 29.5 pg (27.0-32.0); Mean Corpuscular Volume 88.8 fL (80-94); Mean Platelet Vol. 11.7 fl (6.2-12.0); Monocyte# 0.53 X10^3/uL; Monocyte% 9.6 % (0-10); Neutrophil # 3.02 X10^3/uL (2.7-7.7); Neutrophil % 54.8 % (47-70); Platelet Count 181 K/mm3 (150-450); RBC Distribution Width CV 13.5 % (11.6-14.6); RBC Distribution Width SD 43.1 fl (35.1-43.9); Red Blood Count 4.74 M/mm3 (4.6-6.2); White Blood Count 5.5 K/mm3 (4.4-11.0)
[2017-12-23 16:02] LABS: POSITIVE COUNT NO; POSITIVE DIFFERENTIAL NO; POSITIVE MORPHOLOGY NO
[2017-12-23 16:09] LABS: Creatinine, Serum 0.84 mg/dL (0.70-1.30); EST Glomerular Filtration Rate 97 mL/min (>60); Est Glom Filt Rate - Afr Amer 117 mL/min (>60); PSA,Total- Diagnostic 0.04 ng/mL (0.0-4.0)
== END ==
PROVIDERS: Family Provider Family Medicine; PCP Family Medicine; Referring Provider Radiology Radiation Oncology; Visit Provider Radiology Radiation Oncology
DX: C61 Malignant neoplasm of prostate (principal); Z01.818 Encounter for other preprocedural examination
CPT/HCPCS: 36415; 82565; 84153; 85025

== ENCOUNTER → 2017-12-24 12:51 | Outpatient (CLI) | payer MEDICARE, SELFPAY ==
--- NOTE | 2017-12-24 12:54 | CT_ITS ---
STUDY: CT PELVIS WITH CONTRAST REASON FOR EXAM: Male, 67 years old. History of prostate cancer. This is a treatment planning examination. RADIATION DOSAGE (If Supplied By Facility): CTDIvol = ( 24.62 ) mGy, DLP = ( 1620.61 ) mGycm TECHNIQUE: Transaxial imaging of the pelvis was performed without oral contrast. 100ML ml of Isovue 300 contrast was administered intravenously. A urethrogram was performed as well. Individualized dose optimization techniques were used for this CT. COMPARISON: Comparison is made with prior examination dated July 11, 2017. FINDINGS: There is evidence of a cystocele. The patient is status post prostatectomy. Metallic seeds are seen in the prostate bed. Normal visualized small intestine. Normal visualized colon. There is no pelvic fluid. Small benign-appearing bilateral inguinal lymph nodes. Normal visualized pelvic arteries. Normal abdominal wall. There are diffuse degenerative changes of the visualized lumbar spine. CT/CT Pelvis W/CONT Therapy IMPRESSION: Status post prostatectomy. Cystocele. Electronically Signed: Howard Wahl MD at 10:19 EST Tel [phone], Service support ,
== END ==
PROVIDERS: Family Provider Family Medicine; PCP Family Medicine; Referring Provider Radiology Radiation Oncology; Visit Provider Radiology Radiation Oncology
DX: C61 Malignant neoplasm of prostate (principal)
CPT/HCPCS: 51600; 72193; Q9967

== ENCOUNTER → 2018-02-26 10:00 | Outpatient (CLI) | payer MEDICARE, SELFPAY ==
[2018-02-26 11:36] LABS: Absolute Lymphocyte Count 1.12 X10^3/ul (0.83-4.51); Basophil# 0.04 X10^3/uL; Eosinophil# 0.28 X10^3/uL; Eosinophils% 7.2 % (0-5); Hematocrit 38.8 % (40-54); Lymphocyte # 1.12 X10^3/ul (4.0); Lymphocyte % 28.9 % (19-41); Mean Corp Hgb Conc 33.5 g/gl (32-36); Mean Corpuscular Hgb 30.7 pg (27.0-32.0); Mean Corpuscular Volume 91.7 fL (80-94); Mean Platelet Vol. 11.2 fl (6.2-12.0); Monocyte# 0.43 X10^3/uL; Monocyte% 11.1 % (0-10); Neutrophil % 51.8 % (47-70); POSITIVE COUNT NO; POSITIVE DIFFERENTIAL NO; POSITIVE MORPHOLOGY NO; Platelet Count 163 K/mm3 (150-450); RBC Distribution Width CV 13.4 % (11.6-14.6); RBC Distribution Width SD 44.1 fl (35.1-43.9); Red Blood Count 4.23 M/mm3 (4.6-6.2); White Blood Count 3.9 K/mm3 (4.4-11.0)
--- OUTSIDE RECORDS SUMMARY | 2018-05-03 02:40 | XMS RPT_ITS ---
:1950 Author Organization OHIP Support Name Relationship Address Phone MG PALAFOXA Unavailable [address] + [place] [address] R Unavailable Unavailable Unavailable CHENEVEY, KIMBERLEE Unavailable [address] + [place] [address] R Unavailable Unavailable Unavailable CHENEVEY, KIMBERLEE Unavailable [address] + [place] [address] R Unavailable Unavailable Unavailable CHENEVEY, KIMBERLEE Unavailable [address] + [place] [address] R Unavailable Unavailable Unavailable CHENEVEY, KIMBERLEE Unavailable [address] + [place] [address] R Unavailable Unavailable Unavailable CHENEVEY, KIMBERLEE Unavailable [address] + [place] [address] R Unavailable Unavailable Unavailable CHENEVEY, KIMBERLEE Unavailable [address] + [place] [address] R Unavailable Unavailable Unavailable CHENEVEY, KIMBERLEE Unavailable [address] + [place] [address] R Unavailable Unavailable Unavailable CHENEVEY, KIMBERLEE Unavailable [address] + [place] [address] R Unavailable Unavailable Unavailable CHENEVEY, KIMBERLEE Unavailable [address] + [place] [address] R Unavailable Unavailable Unavailable CHENEVEY, KIMBERLEE Unavailable [address] + [place] [address] R Unavailable Unavailable Unavailable Care Team Providers Name Role Phone BOY VERDUZCO III Referring Unavailable BOY VERDUZCO III Attending Unavailable BOY VERDUZCO III Referring Unavailable BOY VERDUZCO III Referring Unavailable Inder Knox Attending Unavailable SeiderInder Referring Unavailable Cebul III, Boy Primary Care Unavailable Felipe, Carlos Castro Attending Unavailable Cebul III, Boy Primary Care Unavailable Felipe, Cralos Castro Attending Unavailable Felipe, [place] A Referring Unavailable Cebul III, Boy Primary Care Unavailable Felipe, [place] A Attending Unavailable Felipe, [place] A Referring Unavailable Cebul III, Boy Primary Care Unavailable Felipe, [place] A Attending Unavailable Felipe, [place] A Referring Unavailable Cebul III, Boy Primary Care Unavailable [place], [place] A Admitting Unavailable Felipe, [place] A Attending Unavailable Felipe, [place] A Referring Unavailable Cebul III, Boy Primary Care Unavailable Robson Pizano Attending Unavailable Dev Zarate Referring Unavailable Fel[place], Carlos Castro Attending Unavailable Felipe, [place] A Referring Unavailable Cebul III, Boy Primary Care Unavailable Felipe, Carlos Castro Attending Unavailable Felipe, [place] A Referring Unavailable Cebul III, Boy Primary Care Unavailable Inder Knox Attending Unavailable Seider, Inder Referring Unavailable Cebul III, Boy Primary Care Unavailable SeiderInder Attending Unavailable Seider, Inder Referring Unavailable Cebul III, Boy Primary Care Unavailable PROBLEMS PROBLEMS DATE TYPE CONDITION / CODE ATTENDING STATUS SOURCE 12/23/2017 Unknown C61 - Malignant Abilio Inder Active [place] neoplasm of prostate Community / C61(ICD-10) Hospital Repository 12/23/2017 Unknown Z01.818 - Encounter Inder alvarenga Active [facility] for other [facility] preprocedural Hospital examination / Repository Z01.818(ICD-10) 09/16/2017 Unknown Z01.810 - Encounter Robson Pizano Active [place] for preprocedural [facility] cardiovascular Hospital examination / Repository Z01.810(ICD-10) 05/11/2017 Active Elevated prostate NA Active [place] [facility] Main (PSA) / [address] R97.20(ICD-10) Repository 04/24/2017 Active Benign prostatic NA Active [place] hyperplasia with Clinic Main lower urinary tract [address] symptoms / Repository N40.1(ICD-10) 04/24/2017 Active 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 Main / N13.8(ICD-10) [address] Repository 04/18/2017 Active 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[place] (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) drug Clinic Main therapy / [address] Z79.899(ICD-10) Repository PROCEDURES PROCEDURES No Procedure Records FoundRESULTS RESULTS CBC W/DIFF, AUTOMATED Collected: 02/26/2018 Status: F Source: [place] 10:07 AM REPOSITORY TYPE CODE TESTS RESULT OUT OF RANGE REFERENCE UNITS LAB L100.1000 4.4-11.0 K/mm3 Low WBC 3.9 LAB L100.1200 4.6-6.2 M/mm3 Low RBC 4.23 LAB L100.1300 13.0-16.5 g/dl Normal HGB 13.0 LAB L100.1400 40-54 % Low HCT 38.8 LAB L100.1500 80-94 fL Normal MCV 91.7 LAB L100.1600 27.0-32.0 pg Normal MCH 30.7 LAB L100.1700 32-36 g/gl Normal MCHC 33.5 LAB L100.1810 11.6-14.6 % Normal RDW CV 13.4 LAB L100.1820 35.1-43.9 fl High RDW SD 44.1 LAB L100.1900 150-450 K/mm3 Normal PLT 163 LAB L100.2000 6.2-12.0 fl Normal MPV 11.2 LAB L100.2100 47-70 % Normal NEUT% 51.8 LAB L100.2200 19-41 % Normal LY% 28.9 LAB L100.2300 0-10 % High MONO% 11.1 LAB L100.2400 0-5 % High EO% 7.2 LAB L100.2500 0-1 % Normal BASO% 1.0 LAB L100.2550 0.0-0.9 % Normal IM GRAN % 0.000 Result Comment: IG% - Immature Granulocytes (promyelocytes, myelocytes and metamyelocytes) > 1% indicates that a LEFT SHIFT is Present. LAB L100.2620 2.0-7.7 X10 3/uL Normal Absolute Neut 2.0 LAB L100.2720 0.83-4.51 X10 3/ul Normal Absolute Lymph 1.12 Performed By: #### L100.0100 #### [facility] [place], [address] [place] PELVIS W/CONT Observed: 12/24/2017 Status: F Source: [place] THERAPY 12:54 PM REPOSITORY [facility] Imaging Services [address] [place] [address] CT Pelvis W/CONT Therapy MR#: [id number] Acct: [id number] Name: EVAN PALAFOX Rep #: [id number] : 1950 M 67 From: Howard Wahl MD PCP: Boy Verduzco III, MD Status: REG CLI Study: CT Pelvis W/CONT Therapy Date of Exam: 12/24/17 Exam# [id number] Ordering Dr: Inder Knox MD STUDY: CT PELVIS WITH CONTRAST REASON FOR EXAM: Male, 67 years old. History of prostate cancer. This is a treatment planning examination. RADIATION DOSAGE (If Supplied By Facility): CTDIvol = ( 24.62 ) mGy, DLP = ( 1620.61 ) mGycm TECHNIQUE: Transaxial imaging of the pelvis was performed without oral contrast. 100ML ml of Isovue 300 contrast was administered intravenously. A urethrogram was performed as well. Individualized dose optimization techniques were used for this CT. COMPARISON: Comparison is made with prior examination dated July 11, 2017. FINDINGS: There is evidence of a cystocele. The patient is status post prostatectomy. Metallic seeds are seen in the prostate bed. Normal visualized small intestine. Normal visualized colon. There is no pelvic fluid. Small benign-appearing bilateral inguinal lymph nodes. Normal visualized pelvic arteries. Normal abdominal wall. There are diffuse degenerative changes of the visualized lumbar spine. CT/CT Pelvis W/CONT Therapy IMPRESSION: Status post prostatectomy. Cystocele. 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 CBC W/DIFF, AUTOMATED Collected: 12/23/2017 Status: F Source: [place] 1:38 PM REPOSITORY TYPE CODE TESTS RESULT OUT OF RANGE REFERENCE UNITS LAB L100.1000 4.4-11.0 K/mm3 Normal WBC 5.5 LAB L100.1200 4.6-6.2 M/mm3 Normal RBC 4.74 LAB L100.1300 13.0-16.5 g/dl Normal HGB 14.0 LAB L100.1400 40-54 % Normal HCT 42.1 LAB L100.1500 80-94 fL Normal MCV 88.8 LAB L100.1600 27.0-32.0 pg Normal MCH 29.5 LAB L100.1700 32-36 g/gl Normal MCHC 33.3 LAB L100.1810 11.6-14.6 % Normal RDW CV 13.5 LAB L100.1820 35.1-43.9 fl Normal RDW SD 43.1 LAB L100.1900 150-450 K/mm3 Normal PLT 181 LAB L100.2000 6.2-12.0 fl Normal MPV 11.7 LAB L100.2100 47-70 % Normal NEUT% 54.8 LAB L100.2200 19-41 % Normal LY% 29.6 LAB L100.2300 0-10 % Normal MONO% 9.6 LAB L100.2400 0-5 % Normal EO% 4.7 LAB L100.2500 0-1 % High BASO% 1.1 LAB L100.2550 0.0-0.9 % Normal IM GRAN % 0.200 Result Comment: IG% - Immature Granulocytes (promyelocytes, myelocytes and metamyelocytes) > 1% indicates that a LEFT SHIFT is Present. LAB L100.2620 2.0-7.7 X10 3/uL Normal Absolute Neut 3.0 LAB L100.2720 0.83-4.51 X10 3/ul Normal Absolute Lymph 1.63 Performed By: #### L100.0100 #### [facility] [address] [place], [place], [id number] SERUM CREATININE AND Collected: 12/23/2017 Status: F Source: [place] GFR 1:38 PM REPOSITORY TYPE CODE TESTS RESULT OUT OF RANGE REFERENCE UNITS LAB L501.1100 0.70-1.30 mg/dL Normal 0.84 CREAT,SERUM Result Comment: The validity of the calculated GFR AND GFRAA in patients over 70 years has not been determined. Clinical correlation is essential. LAB L501.1110 >60 mL/min Normal EST GFR 97 Result Comment: Non- GFR Calc LAB L501.1115 >60 mL/min Normal EST GFR - AA 117 Result Comment: GFR Calc Performed By: #### L501.1105, L501.9940 #### [facility] [address] [place], [address] PSA,TOTAL- DIAGNOSTIC Collected: 12/23/2017 Status: F Source: [place] 1:38 PM REPOSITORY TYPE CODE TESTS RESULT OUT OF RANGE REFERENCE UNITS LAB L501.9940 0.0-4.0 ng/mL PSA, Normal DIAGNOSTIC 0.04 Result Comment: This test was performed using the TPSA assay method for the [employer] chemistry system. Values obtained with different assay methods cannot be used interchangably. When changing PSA assays in the course of monitoring a patient, additional sequential testing should be carried out to confirm baseline values. Performed By: #### L501.1105, L501.9940 #### [facility] [address] [place], [address] OPERATIVE REPORT Observed: 12/06/2017 Status: F Source: [place] 12:42 PM REPOSITORY [facility] Medical Records Department [address] [facility] [place] [address] Operative Report 12/06/17 1240 MR#: [id number] Acct: [id number] Name: EVAN PALAFOX Kirti Rep #: [id number] : 1950 67 From: Carlos Wang MD PCP: Boy Verduzco III, MD Status: [facility] Location: [place] [address] Report of Operation Date of Procedure: 12/06/17 Pre-Operative Diagnosis: Prostate cancer Post-Operative Diagnosis: Same Surgery/Procedure Performed:: Transrectal ultrasound guided placement of 3 fiducial markers Description of Surgical Findings:: 67-year-old male taken back to the operating room after smooth induction of anesthesia he was placed supine on the table and then in dorsal lithotomy position we introduced a ultrasound probe into the rectum and identified the bladder which was full of urine and the sphincter complex I then placed one gold fiducial marker next to the bladder on the left side and 2 fiducial markers at different planes next the bladder on the right side after the placement of fiducial markers was completed I ultrasound with the probe and could see the markers in good position remove the ultrasound probe and the patient's anesthetic was reversed taken back to PACU good condition he is going to proceed with radiation therapy. Type of Anesthesia:: General Drains: none - Admit VTE Documentation VTE Present on Admission: No 12/06/17 1242 <Electronically signed by Carlos Wang MD> Date Carlos Wang MD CC: Boy Verduzco III, MD; Carlos Wang MD Signed DISCHARGE INSTRUCTION Observed: 12/06/2017 Status: F Source: [place] 12:17 PM REPOSITORY [facility] Medical Records Department [address] [place] [address] Instructions for Home/Discharge Instructions 12/06/17 1216 MR#: [id number] Acct: [id number] Name: EVAN PALAFOX Rep #: [id number] : 1950 67 From: Carlos Wang MD PCP: Boy Verduzco III, MD Status: REG [facility] Discharge Diet: Light diet - advance as tolerated Discharge Activity: No Restrictions Allergies/Adverse Reactions: Allergies No Known Allergies Allergy (Verified 11/29/17 11:06) Medications to take at Discharge Atorvastatin Calcium [Lipitor] 40 mg PO DAILY 08/15/17 Lisinopril [Zestril] 5 mg PO DAILY 08/15/17 Bicalutamide [Casodex] 50 mg PO DAILY 11/29/17 Calcium Carbonate [Calcium] 1,200 mg PO DAILY 11/29/17 Primary Care Physician: Boy Verduzco III, MD [Primary Care Provider] - Test Results: Test results from this visit will be discussed in further detail at your follow-up appointment, if applicable. Please Follow Up With: Carlos Wang MD When: keep appt for next Injection. 12/06/17 1217 <Electronically signed by Carlos Wang MD> Date Carlos Wang MD CC: Boy Verduzco III, MD INTRAOPERATIVE ULTRASOUND Observed: 12/06/2017 Status: F Source: [place] 11:45 AM REPOSITORY [facility] Imaging Services [address] [place] [address] Intraoperative Ultrasound MR#: [id number] Acct: [id number] Name: EVAN PALAFOX Rep #: [id number] : 1950 M 67 From: Howard Wahl MD PCP: Boy Verduzco III, MD Status: [facility] Study: Intraoperative Ultrasound Date of Exam: 12/06/17 Exam# [id number] Ordering Dr: Carlos Wang MD PROCEDURE: Ultrasound Guided marker placement in the prostate. CLINICAL HISTORY: Male, 67 years old. Prostate cancer. TECHNIQUE: Under direct sonographic guidance, the urologist placed 3 gold markers within the prostate. US/Intraoperative Ultrasound IMPRESSION: Under direct sonographic visualization, the urologist placing 3 gold markers within the prostate. 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 Values obtained with different assay methods cannot be used interchangably. When changing PSA assays in the course of monitoring a patient, additional sequential testing should be carried out to confirm baseline values. Performed By: #### L501.9940 #### [facility] [address] [place], [address] PSA, DIAGNOSTIC Collected: 10/10/2017 Status: F Source: [place] 8:25 AM CLINIC REFERENCE REPOSITORY TYPE CODE TESTS RESULT OUT OF REFERENCE UNITS RANGE LAB PSA(LOINC) 0.00-2.59 ng/mL PSA, High Diagnostic 7.51 Performed By: #### PSA #### [facility] Routine Lab [address] [place], [place] [address] DISCHARGE SUMMARY Observed: 08/23/2017 Status: F Source: [place] 9:11 AM REPOSITORY [facility] Medical Records Department [address] [place] [address] Discharge Summary 08/23/17 0910 MR#: [id number] Acct: [id number] Name: EVAN PALAFOX Rep #: [id number] : 1950 67 From: Carlos Wang MD PCP: Boy Verduzco III, MD Status: ADM IN Location: [place] [address] Discharge Date and Diagnosis - Problem List Patient Problems: Active and Suspected Problems Prostate cancer (Acute) Date of Admission: 08/21/17 Date of Discharge: 08/23/17 - Primary Discharge Diagnosis Active and Suspected Problems Prostate cancer (Acute) Hospital Course and Treatment Operations: - - Robotic radical prostatectomy Procedures: None Summary of Care Provided: The patient is a 67 year old male who underwent a robotic radical prostatectomy for prostate cancer, postoperative day #1 he did really well advance to regular diet, postoperative day #2 the past gas abdomen soft and benign tolerating regular diet fluids were hep-locked. Plan to discharge home with Coombs catheter. Discharge Diet: Light diet - advance as tolerated Discharge Activity: May Not Drive Call your doctor if your incision/area has: Continuous Slow Oozing, Sudden Increased Bleeding, Increased Pain/ Swelling, Increased Redness, Foul Smelling Discharge, Swelling at the incision site Call your doctor if you observe: Fever of 101 or Higher, Inability to have a bowel movement, Uncontrolled pain Suture Line Care: Avoid Pulling/Pushing Home Medications: Medications to take at Discharge Atorvastatin Calcium [Lipitor] 40 mg PO DAILY 08/15/17 Lisinopril [Zestril] 5 mg PO DAILY 08/15/17 Ciprofloxacin [Cipro] 500 mg PO BID #20 tab 08/23/17 Docusate Sodium [Colace] 100 mg PO BID #20 cap 08/23/17 Hydrocodone/Acetaminophen [[place] 5-325 Tablet] 1 ea PO Q4H PRN PRN 7 Days #14 tab 08/23/17 Following Prescrptions Were Given to Patient: Hydrocodone/Acetaminophen [[place] 5-325 Tablet] 1 ea PO Q4H PRN PRN 7 Days #14 tab PRN Reason: Pain Ciprofloxacin [Cipro] 500 mg PO BID #20 tab Docusate Sodium [Colace] 100 mg PO BID #20 cap Primary Care Physician: Boy Verduzco III, MD [Primary Care Provider] - Please Follow Up With: Carlos Wang MD When: 2 weeks, please call to make an appointment. Patient Instructions: Discharge Instructions for Radical Prostatectomy Medical Necessity - Tobacco Use Smoking Status: Current some day smoker Tobacco Use: Cigars Meaningful Use Info Meaningful Use Diagnoses (Choose all that apply): None applicable 08/23/17 0911 <Electronically signed by Carlos Wang MD> Date Carlos Wang MD Cosigner Signature (if applicable): Date CC: Boy Verduzco III, MD; Carlos Wang MD Signed DISCHARGE INSTRUCTION Observed: 08/23/2017 Status: F Source: [place] 8:43 AM REPOSITORY [facility] Medical Records Department [address] [place] [address] Instructions for Home/Discharge Instructions 08/23/1742 MR#: [id number] Acct: [id number] Name: EVAN PALAFOX Rep #: [id number] : 1950 67 From: Carlos Wang MD PCP: Boy Verduzco III, MD Status: ADM IN Discharge Diet: Light diet - advance as tolerated Discharge Activity: May Not Drive Call your doctor if your incision/area has: Continuous Slow Oozing, Sudden Increased Bleeding, Increased Pain/ Swelling, Increased Redness, Foul Smelling Discharge, Swelling at the incision site Call your doctor if you observe: Fever of 101 or Higher, Inability to have a bowel movement, Uncontrolled pain Suture Line Care: Avoid Pulling/Pushing Instructions: Discharge Instructions for Radical Prostatectomy Allergies/Adverse Reactions: Allergies No Known Allergies Allergy (Verified 08/15/17 14:01) Medications to take at Discharge Atorvastatin Calcium [Lipitor] 40 mg PO DAILY 08/15/17 Lisinopril [Zestril] 5 mg PO DAILY 08/15/17 Ciprofloxacin [Cipro] 500 mg PO BID #20 tab 08/23/17 Docusate Sodium [Colace] 100 mg PO BID #20 cap 08/23/17 Hydrocodone/Acetaminophen [[place] 5-325 Tablet] 1 ea PO Q4H PRN PRN 7 Days #14 tab 08/23/17 The following prescriptions were given: Hydrocodone/Acetaminophen [[place] 5-325 Tablet] 1 ea PO Q4H PRN PRN 7 Days #14 tab PRN Reason: Pain Ciprofloxacin [Cipro] 500 mg PO BID #20 tab Docusate Sodium [Colace] 100 mg PO BID #20 cap Primary Care Physician: Boy Verduzco III, MD [Primary Care Provider] - Test Results: Test results from this visit will be discussed in further detail at your follow-up appointment, if applicable. Please Follow Up With: Calros Wang MD When: 2 weeks, please call to make an appointment. 08/23/17 0843 <Electronically signed by Carlos Wang MD> Date Carlos Wang MD CC: Boy Verduzco III, MD CBC-COMPLETE BLOOD CNT Collected: 08/22/2017 Status: F Source: [place] NO DIFF 5:30 AM REPOSITORY TYPE CODE TESTS RESULT OUT OF RANGE REFERENCE UNITS LAB L100.1000 4.4-11.0 K/mm3 Normal WBC 9.4 LAB L100.1200 4.6-6.2 M/mm3 Low RBC 3.80 LAB L100.1300 13.0-16.5 g/dl Low HGB 11.3 LAB L100.1400 40-54 % Low HCT 34.1 LAB L100.1500 80-94 fL Normal MCV 89.7 LAB L100.1600 27.0-32.0 pg Normal MCH 29.7 LAB L100.1700 32-36 g/gl Normal MCHC 33.1 LAB L100.1810 11.6-14.6 % Normal RDW CV 14.4 LAB L100.1820 35.1-43.9 fl High RDW SD 46.1 LAB L100.1900 150-450 K/mm3 Normal PLT 163 LAB L100.2000 6.2-12.0 fl Normal MPV 11.0 Performed By: #### L100.0500 #### [facility] [address] [place], [address] BASIC METABOLIC Collected: 08/22/2017 Status: F Source: [place] PROFILE (BMP) 5:30 AM REPOSITORY TYPE CODE TESTS RESULT OUT OF RANGE REFERENCE UNITS LAB L501.0100 74-106 mg/dL Normal GLU 100 Result Comment: Fasting Glucose result from 100 to 125 mg/dL suggests IMPAIRED HOMEOSTASIS per A.D.A. criteria. Please note revised GLUCOSE reference range effective 2017. LAB L501.1000 7-18 mg/dL Normal BUN 10 LAB L501.1100 0.70-1.30 mg/dL Normal CREAT,SERUM 0.83 Result Comment: The validity of the calculated GFR AND GFRAA in patients over 70 years has not been determined. Clinical correlation is essential. LAB L501.1110 >60 mL/min Normal EST GFR 98 Result Comment: Non- GFR Calc LAB L501.1115 >60 mL/min Normal EST GFR - AA 118 Result Comment: GFR Calc LAB L501.1255 ml/min Normal Estimated CRCL 84.00 LAB L501.1300 10-20 RATIO Normal BUN/CRE 12.1 LAB L501.2200 8.5-10 mg/dL Low .1 CA 7.5 LAB L501.5300 136-14 mmol/L Normal 5 NA 143 LAB L501.5600 3.5-5. mmol/L Normal 1 K 4.2 LAB L501.5900 98-107 mmol/L High CL 109 LAB L501.6100 21.0-3 mmol/L Normal 2.0 CO2 25.0 LAB L501.6200 5-15 Normal GAP 9 Performed By: #### L500.2500 #### [facility] [address] [place], [place], [id number] CBC-COMPLETE BLOOD CNT Collected: 08/21/2017 Status: F Source: [place] NO DIFF 3:54 PM REPOSITORY Order Comment: Comments: To be done in PACU TYPE CODE TESTS RESULT OUT OF RANGE REFERENCE UNITS LAB L100.1000 4.4-11.0 K/mm3 High WBC 12.0 LAB L100.1200 4.6-6.2 M/mm3 Low RBC 4.32 LAB L100.1300 13.0-16.5 g/dl Low HGB 12.7 LAB L100.1400 40-54 % Low HCT 38.5 LAB L100.1500 80-94 fL Normal MCV 89.1 LAB L100.1600 27.0-32.0 pg Normal MCH 29.4 LAB L100.1700 32-36 g/gl Normal MCHC 33.0 LAB L100.1810 11.6-14.6 % Normal RDW CV 14.1 LAB L100.1820 35.1-43.9 fl High RDW SD 46.5 LAB L100.1900 150-450 K/mm3 Normal PLT 154 LAB L100.2000 6.2-12.0 fl Normal MPV 10.5 Performed By: #### L100.0500 #### [facility] [address] [place], [place], [id number] BASIC METABOLIC Collected: 08/21/2017 Status: F Source: [place] PROFILE (BMP) 3:54 PM REPOSITORY Order Comment: Comments: To be done in PACU TYPE CODE TESTS RESULT OUT OF RANGE REFERENCE UNITS LAB L501.0100 74-106 mg/dL High GLU 137 Result Comment: Fasting Glucose result greater than or equal to 126 mg/dL suggests DIABETES MELLITUS per A.D.A. criteria. Please note revised GLUCOSE reference range effective 2017. LAB L501.1000 7-18 mg/dL Normal BUN 11 LAB L501.1100 0.70-1.30 mg/dL Normal CREAT,SERUM 1.05 Result Comment: The validity of the calculated GFR AND GFRAA in patients over 70 years has not been determined. Clinical correlation is essential. LAB L501.1110 >60 mL/min Normal EST GFR 74 Result Comment: Non- GFR Calc LAB L501.1115 >60 mL/min Normal EST GFR - AA 90 Result Comment: GFR Calc LAB L501.1255 ml/min Normal Estimated CRCL 66.40 LAB L501.1300 10-20 RATIO Normal BUN/CRE 10.5 LAB L501.2200 8.5-10 mg/dL Low .1 CA 7.9 LAB L501.5300 136-14 mmol/L Normal 5 NA 142 LAB L501.5600 3.5-5. mmol/L Normal 1 K 3.8 LAB L501.5900 98-107 mmol/L High CL 108 LAB L501.6100 21.0-3 mmol/L Normal 2.0 CO2 25.0 LAB L501.6200 5-15 Normal GAP 9 Performed By: #### L500.2500 #### [facility] [address] [place], [address] OPERATIVE REPORT Observed: 08/21/2017 Status: F Source: [place] 2:33 PM REPOSITORY [facility] Medical Records Department [address] [facility] [address] Operative Report 08/21/17 1422 MR#: [id number] Acct: [id number] Name: EVAN PALAFOX Rep #: [id number] : 1950 67 From: Carlos Wang MD PCP: Boy Verduzco III, MD Status: ADM IN Y Location: [facility]3 HR704-2 Problem List (1) Prostate cancer Status: Acute Report of Operation Date of Procedure: 08/21/17 Pre-Operative Diagnosis: Prostate cancer Post-Operative Diagnosis: Same Surgery/Procedure Performed:: Laparoscopic robotic assisted radical prostatectomy, bilateral lymph node dissection, EMG monitoring of the pelvic lymph nerves, suture suspension of the urethra and bladder neck reconstruction. Description of Surgical Findings:: 67-year-old male with a very large prostate was found to have high-grade invasive disease we talked about the options of management including upfront radiation and hormone deprivation therapy we also talked about the options of doing surgery to remove as much of the cancer as possible with the possibility that he may need more treatment after surgery such as hormone therapy, chemotherapy and radiation treatments. We talked about the risks of surgery including bleeding infection risk of anesthesia, risk of incontinence and loss of erections. 67-year-old male taken back to the operating room after smooth induction of general anesthesia he is placed supine on the table, penis and testicles and the abdomen were prepped and draped in usual sterile fashion, patient was placed flat on the table we made sure that all the pressure points are padded and he was secured to the table properly, the abdomen she prepped and draped in usual sterile fashion, I then placed a Coombs catheter into the bladder without difficulties, inflated 10 cc in the balloon, then made an incision above the umbilicus about 10 mm in size and dissected down to the fascia and then placed the Veress needle into the peritoneal cavity I then entered inflated the peritoneal cavity with CO2 gas and then placed my camera trocar is a little difficult to get through the fascia but then once I got and it was okay I then placed my #1 robot right arm, my #2 on the left arm, June 13 arm on the left side, place a air seal port resection and also an extra suction port for the radiology assistant. I first reflected the sigmoid colon off the lateral wall to allow to retract out of the pelvis I then held back the sigmoid colon from the pelvis and dissected down into the pelvis I identified the right vas deferens and traces all the way down to the pelvis opening up the fascia and the peritoneum over the vas deferens I then dissected out the vas deferens on the right side and the seminal vesicles in the right side I then went to the left side and identified the left seminal vesicle and the left vas deferens transected through both vas deferens dissected the seminal vesicles free on both sides and then was able to get a space underneath the prostate above the rectum into the rectal fat going to the apex,. I then pulled out of the pelvis I dropped the bladder down with the bladder and extension with the fourth arm. And then I freed up all the space of Retzius above the bladder. I then went to the right side and identified the lymph node bundle on the right side of the pelvic wall I used clips and sharp dissection to dissect the lymph nodes off the service car operator space using the pelvic bone sidewall the iliac vein and the obturator nerve is my landmarks all the lymph node tissue was cleaned off inside the landmarks. This was handed off as a specimen for the nurse to give as a permanent section no frozen was done. I then went to the left side and dissected out the lymph node tissue in the left service car operator side identified the left iliac vein the lateral sidewall the left obturator nerve dissected all the lymph node tissue off here use clips and electrocautery. After lymphocytes dissection was done this took about 20-30 minutes on each side for a meticulous dissection I then went to the bladder and prostate I incised the endopelvic fascia and the right and left side dissected up to the apex identified in the dorsal vein complex and put a stitch in the dorsal vein complex I then pulled back between the bladder and the prostate and decided to do a fairly wide dissection staying far away from the prostate open of the bladder neck fairly large and then identified the prostate and then identified the junction between the prostate and the bladder posteriorly and I dissected down until I encountered the vas deferens and seminal vesicle posteriorly. Then the vas deferens and vessels are elevated up we then placed the EMG electrodes into the pelvis of the pelvis on the right side to the pelvis on the left side we stimulated the vascular bundle on the left side and the right side we identified the action potential both sides to trace out the nerves in order to try to do nerve sparing on both sides. I did start with the dissection on the left side he had high- grade invasive disease in the left side so purposely went with wide dissection into the fat into the perirectal fat working my way very wide and laterally to make sure I take all the tissue on that side all the way up to the apex this is quite a difficult dissection took a long time to slowly dissected here especially as I was getting very close to the rectal fibers. I then went to the right side on the right side we did a nerve sparing dissection I clipped to the pedicles on the right side and then was able to free the the neurovascular bundle off the prostate and the right side I then identified the longitudinal muscle fibers of the rectum that was stuck right into the prostate took some time to very carefully dissect off these longitudinal fibers off the rectum. Took some time to very meticulously dissect the rectus longitudinal rectal fibers off the rectum and make sure that there is no injury to the rectum I then he was able to twist the prostate and then on the left side dissected more again making sure that the longitudinal fibers of the rectal fibers are not injured very close tight dissection here and on that side then I transected through the dorsal vein complex and then placed an extra stitch in the dorsal vein complex during the dissection I also checked the EMG electrodes both sides were able to be spared at the end of dissection there was some decreased quality especially the left side going through a wide dissection. I then transected through the apical part of the prostate going down to the urethra transected to the urethra I then took a frozen section off the above the urethra and this came back positive with cancer cells so I sent off a second frozen section deeper and this came back negative to ensure completely negative margin I then transected the urethra and then posteriorly I dissected very carefully to make sure that I was off the rectum the fibers were coming off the triangle extension of the tenotomies fascia and the posterior aspect. After freeing up the prostate completely I was able to remove it out of the pelvis we irrigated copiously obtained good hemostasis make sure there is no bleeding we lower the pressure and watch the dorsal vein and the pedicles make sure there is no bleeding. I then did a reconstruction of the bladder neck and right a suture to close of the bladder neck we did a reverse tennis racquet closure closing the bladder neck posteriorly working up anteriorly once the bladder neck closure of the bladder was done then I proceeded with a suture suspension of the urethra the urethra is suspended in order to prevent incontinence and then we did an anastomosis between the urethra and the bladder neck put a catheter in and over the catheter as I sutured the bladder neck reconstructed tennis racquet to the urethra in a watertight fashion at the end of the anastomosis that I filled the bladder with water and there was no leakage whatsoever. Once we have completed the suture suspension of the urethra and the reconstruction and the anastomosis then we exchanged the Endo Catch back to the camera port I then extracted the prostate to the camera port and then we closed the fascia and the umbilical we did this transverse closure and then we closed the fascia for the air seal port all the ports removed everything all the needles and sponges and sticks were accounted for the count was complete. We then closed all the incisions with subcuticular stitches. Patient's anesthesia was reversed he was extubated patient looked good making good urine taken back to PACU in good condition final section of the apical margin was negative no frozens were sent on the lymph node tissue but this was sent off prostate was fairly very enlarged very difficult dissection on the left side did a wide dissection right side nerve sparing. And I will talk to the family regarding the findings. Type of Anesthesia:: General Drains: COOMBS Estimated Blood Loss (mL): 500CC - Admit VTE Documentation VTE Present on Admission: No VTE Mechan Device Prophylaxis: SCD's VTE Pharm Prophylaxis ordered?: No Reason prophylaxis not ordered:: Treatment Not Indicated 08/21/17 1433 <Electronically signed by Carlos Wang MD> Date Carlos Wang MD CC: Boy Verduzco III, MD; Carlos Wang MD Signed PROSTATE RADICAL Observed: 08/21/2017 Status: F Source: [facility] RESECTION 12:00 AM REPOSITORY Patient: EVAN PALAFOX : 1950 (67/M) Acct Num: [id number] Phys: Felipe SANDOVAL,Carlos Castro Unit Num: [id number] Loc: MS3 [id number] Specimen: [id number] Received: 08/21/17 - 1233 Spec Type: PROSTATE TISSUES TISSUES: A. Prostate, NOS B. Prostate, NOS C. Prostate, NOS D. Lymph node of pelvis, NOS E. Lymph node of pelvis, NOS F. Adipose tissue COMMENT The tumor is present from apical to basal portion of the prostate involving right and left lobes. Apical and basal margin in the prostate specimen are positive for tumor; however, specimen B apical margin is negative for carcinoma. Calcified nodules on surface of the prostate and seminal vesicle may represent calcified and obliterated blood vessels. Please make reference to previous specimen ([id number]), right prostate and left prostate,, apex, mid, base with diagnoses of adenocarcinoma. FROZEN SECTION DIAGNOSIS A. Apical margin, biopsy: Positive for carcinoma. B. Apical margin #2, biopsy: Negative for carcinoma. : 08/21/17 GROSS DESCRIPTION A - Received fresh for frozen section diagnosis labeled with the patient's name is a specimen designated apical margin. The specimen consists of a piece of saucedo soft tissue measuring 1 x 0.5 x 0.2 cm. The entire specimen is submitted for frozen section diagnosis in one cassette. / : 08/21/17 B - Received fresh for frozen section diagnosis labeled with the patient's name is a specimen designated apical margin #2. The specimen consists of a piece of saucedo soft tissue measuring 0.4 x 0.2 x 0.1 cm. The entire specimen is submitted for frozen section diagnosis in one cassette. / : 08/21/17 C - Received in fixative is one container labeled with the patient's name and designated prostate. The specimen consists of a radical prostatectomy specimen consisting of prostate and bilateral seminal vesicles weighing 84 gm. The prostate measures 6 cm transversely, 4.5 cm anterior-posteriorly and 5 cm craniocaudally. The right seminal vesicle measures 2.5 x 1.5 x 0.5 cm and right vas deferens measures 3 cm in length and 0.4 cm in diameter. The left seminal vesicle measures 3 x 2 x 0.6 cm and the left vas deferens measures 2.5 cm in length and 0.3 cm in diameter. A nodule is noted on the right lateral surface in the middle portion of the prostate. This nodule is inked orange. The prostate is inked as follows: anterior surface yellow, posterior surface black, right lateral surface blue, left lateral surface green. The right seminal vesicle and vas deferens is inked as follows: anterior blue, posterior black. The left seminal vesicle and vas deferens is inked as follows: anterior green, posterior black. Serial sections do not reveal any obvious mass lesion. Automation Developer sections are submitted in 20 cassettes as follows: 1 - right seminal vesicle and vas deferens, 2 left seminal vesicle and vas deferens, 3 nodule on the right lateral lobe of the prostate, submitted after decalcification, 4 - apical margin, enface, 5 bladder base margin, enface, 6-11 apical portion prostate, 12-15 middle portion prostate, 16-20 basal portion prostate (cassette 20 contains the most basal portion of the prostate. Sections will be submitted after additional fixation. / : D - Received in fixative is one container labeled with the patient's name and designated right pelvic lymph node. The specimen consists of three pieces of yellow adipose tissue measuring in aggregate 3.5 x 3 x 1.5 cm. One possible lymph node is identified measuring 3 cm in greatest dimension. The entire specimen is submitted in three cassettes as follows: 1 AND 2 bisected lymph node and attached adipose tissue, 3 rest of the specimen. Sections will be submitted after additional fixation. / : 08/22/17 E - Received in fixative is one container labeled with the patient's name and designated left pelvic lymph node. The specimen consists of a piece of yellow adipose tissue measuring 4 x 3 x 1 cm. One lymph node is identified measuring 4.5 cm in greatest dimension. The entire specimen is submitted in three cassettes. Cassettes 1 AND 2 contain the lymph node. Sections will be submitted after additional fixation. / SJ: 08/22/17 F - Received in fixative is one container labeled with the patient's name and designated fat over prostate. The specimen consists of two pieces of yellow adipose tissue measuring 4 x 3.5 x 1.5 cm. No mass lesion is identified. The entire specimen is submitted in four cassettes. / SJ: 08/22/17 TC:0 CPT: 50342, 62033 x5, 09138 x2, 16464 HEADER OPERATION: Laparoscopic robotic radical prostatectomy PRE-OP DIAGNOSIS: Prostate cancer, elevated PSA TISSUE SUBMITTED: A Apical margin sent to lab for FS, B Apical margin #2 sent to lab for FS, C Prostate, D Right pelvic lymph node, E Left pelvic lymph node, F Fat over prostate MICROSCOPIC DESCRIPTION Slides are reviewed. MICROSCOPIC DIAGNOSIS A. Apical margin, biopsy: Positive for carcinoma. B. Apical margin #2, biopsy: Negative for carcinoma. C. Prostate, radical prostatectomy: Prostatic adenocarcinoma. See cancer summary below. D. Right pelvic lymph node, biopsy: One lymph node, negative for metastatic carcinoma. E. Left pelvic lymph node, biopsy: One lymph node, negative for metastatic carcinoma. F. Fat over prostate: Fragments of mature adipose tissue, negative for carcinoma. PROSTATE CANCER (RADICAL) SUMMARY: (Including specimens A-F) Procedure radical prostatectomy Prostate size 6 cm transversely, 4.5 cm anterior-posteriorly, 5 cm craniocaudally Prostate weight 84 gm Lymph node sampling pelvic lymph node dissection, right and left Histologic type adenocarcinoma (acinar) Histologic grade (Jcarlos Pattern): Primary pattern - 5 Secondary pattern - 4 Tertiary pattern not applicable Total Suffolk score - 9 Tumor Quantitation: Proportion (%) of prostate involved by tumor 70-80% Extraprostatic extension - present Seminal vesicle invasion present, bilateral Margins Basal margin is involved by the tumor. See comment. Treatment effect on carcinoma no known presurgical therapy. Lymph-Vascular invasion not identified Perineural invasion present, frequent Regional lymph nodes: Number examined - 2 Number involved - 0 Distant metastasis not applicable Additional pathologic findings - - Benign prostatic hyperplasia. - A calcified nodule, prostate right lobe, see comment.. - Seminal vesicle, left a calcified nodule, see comment.. Ancillary studies not performed. PATHOLOGIC STAGE: pT3b pN0 Mx The above summary is in compliance with [employer] [place] [employer] (CAP) Cancer Protocols Checklist and [place] [employer] Committee on Cancer (AJCC), Staging Manual, 8th Ed. SJ:christiano 08/27/17 Signed Alberto Ruff 08/28/17 <signature on file> Performed By: #### PPROST #### [facility] [address] [place], [address] 12 LEAD ELECTROCARDIOGRAM Observed: 08/19/2017 Status: F Source: [place] 3:56 PM REPOSITORY [facility] [address] [place] [address] EKG - [facility] 08/15/17 1335 MR#: [id number] Acct: [id number] Name: EVAN PALAFOX Kirti Rep #: [id number] : 1950 67 From: Robson Pizano MD Attending Dr: Felipe SANDOVAL,Carlos Castro Status: PRE IN Ordering Dr: Dev Zarate MD Date: 08/15/17 Location: [facility] Sex: M C Admitted: Test Reason : Blood Pressure : / mmHG Vent. Rate : 060 BPM Atrial Rate : 060 BPM P-R Int : 178 ms QRS Dur : 100 ms QT Int : 418 ms P-R-T Axes : 018 013 033 degrees QTc Int : 418 ms Normal sinus rhythm Normal ECG Confirmed by DARIEN SANDOVAL, ROBSON ([id number]), acquisition editor SON BOONE ([id number]) on 08/19/2017 3:56:35 PM Referred By: Carlos Wang Confirmed By:ROBSON PIZANO MD 08/19/17 1556 Date Robson Pizaon MD CC: Dev Zarate MD; Boy Verduzco III, MD; Carlos Wang MD Date Dictated: 08/15/171334 Date Transcribed: 08/15/171334 Plastics Fitter: Signed CBC-COMPLETE BLOOD CNT Collected: 08/15/2017 Status: F Source: [place] NO DIFF 2:40 PM REPOSITORY TYPE CODE TESTS RESULT OUT OF RANGE REFERENCE UNITS LAB L100.1000 4.4-11.0 K/mm3 Normal WBC 4.9 LAB L100.1200 4.6-6.2 M/mm3 Normal RBC 4.70 LAB L100.1300 13.0-16.5 g/dl Normal HGB 13.9 LAB L100.1400 40-54 % Normal HCT 41.2 LAB L100.1500 80-94 fL Normal MCV 87.7 LAB L100.1600 27.0-32.0 pg Normal MCH 29.6 LAB L100.1700 32-36 g/gl Normal MCHC 33.7 LAB L100.1810 11.6-14.6 % Normal RDW CV 14.1 LAB L100.1820 35.1-43.9 fl High RDW SD 45.0 LAB L100.1900 150-450 K/mm3 Normal PLT 178 LAB L100.2000 6.2-12.0 fl Normal MPV 10.6 Performed By: #### L100.0500 #### [facility] [address] [place], [address] TYPE AND SCREEN Collected: 08/15/2017 Status: F Source: [facility] 2:40 PM REPOSITORY Order Comment: Reason for Type AND Screen/Red Cells: SURGERY Surgery Date: 08/21/17 Type of Surgery: RADICAL PROSTATECTOMY TYPE CODE TESTS RESULT OUT OF RANGE REFERENCE UNITS LAB B10.0800 A Normal BLOOD TYPE GEL POSITIVE LAB B100.4000 Normal Antibody NEGATIVE Screen Performed By: #### B101.7450 #### [facility] [address] [place], [address] PELVIS W/WO CONTRAST Observed: 08/15/2017 Status: F Source: [facility] 11:10 AM REPOSITORY [facility] Imaging Services [address] [place] [address] Pelvis W/WO Contrast MR#: [id number] Acct: [id number] Name: EVAN PALAFOX Rep #: [id number] : 1950 M 67 From: Giovanny Wiggins MD PCP: Boy Verduzco III, MD Status: REG CLI Study: Pelvis W/WO Contrast Date of Exam: 08/15/17 Exam# [id number] Ordering Dr: aCrlos Wang MD STUDY: MR PELVIS WITH T WITHOUT CONTRAST REASON FOR EXAM: Male, 67 years old. PROSTATE CANCER staging, prev bx, TECHNIQUE: Standardized fat and water weighted pulse sequences were obtained in all 3 orthogonal planes, pre-and post contrast administration. 10 ml of Gadavist contrast material was administered intravenously for the contrast portion of the examination. COMPARISON: CT Abdomen/Pelvis Jul 11 2017 7:20am FINDINGS: Normal urinary bladder. Normal visualized colon. Degenerative findings of the symphysis pubis. Prostate gland: The anterior fibromuscular stroma and central zone appear intact. The central gland demonstrates normal signal characteristics. Rectum is unremarkable. Levator ani muscle is not disrupted. The penile bulb is embraced by an intact inferomedial levator ani muscle. No areas of abnormal enhancement. Normal visualized RIGHT neurovascular bundles. A 48 x 26mm focal lesion in the left peripheral zone has mixed hyperintense (some have low and some areas have high signal) signal on the DWI and it is hypointense on ADC is highly suspicious for cancer. Axial T2WI shows a large hypointense lesion (erased charcoal sign) in the left peripheral zone with extension into the left seminal vesicles. The lesion shows a broad-base contact and bulging of the capsule. There is extension into the left transitional zone. There is mass effect and displacement of the urethra to the right side. There is abnormal signal in the urethra concerning for invasion. There is abutment along the left Denonvilliers fascia. There is concern for invasion into the left neurovascular bundle. There is no pelvic fluid. There is no pelvic mass lesion or lymphadenopathy. Normal visualized pelvic arteries. Normal osseous structures. Normal abdominal wall. MRI/Pelvis W/WO Contrast IMPRESSION: There is a large left peripheral zone mass with extension into the left transitional zone. There is extracapsular extension into the left seminal vesicle and likely into the left neurovascular bundle. There is also concern for invasion into the urethra. Electronically Signed: Giovanny Wiggins MD at 20:55 EDT , Service support , CC: Boy Verduzco III, MD; Carlos Wang MD Plastics Fitter: Signed CREATININE FINGERSTICK Collected: 07/11/2017 Status: F Source: [place] 7:23 AM REPOSITORY TYPE CODE TESTS RESULT OUT OF RANGE REFERENCE UNITS LAB L9100.0210 0.70-1.30 mg/dL Normal CREATININE WB 0.9 LAB L9100.0220 >60 mL/min EGFR WB Normal > 60.0000 Performed By: #### L9100.0200 #### [facility] Point of Care [address] [place] [address] ABDOMEN/PELVIS W IV CONT Observed: 07/11/2017 Status: F Source: [facility] ONLY 7:13 AM REPOSITORY [facility] Imaging Services [address] [place] [address] Abdomen/Pelvis W IV Cont ONLY MR#: [id number] Acct: [id number] Name: EVAN PALAFOX Rep #: [id number] : 1950 M 67 From: Howard Wahl MD PCP: Boy Verduzco III, MD Status: REG CLI Study: Abdomen/Pelvis W IV Cont ONLY Date of Exam: 07/11/17 Exam# [id number] Ordering Dr: Carlos Wang MD STUDY: CT ABDOMEN AND PELVIS WITH CONTRAST REASON FOR EXAM: Male, 67 years old. Newly diagnosed prostate carcinoma. RADIATION DOSAGE (If Supplied By Facility): CTDIvol = ( 16.58 ) mGy, DLP = ( 1060.94 ) mGycm TECHNIQUE: Transaxial images were obtained from the dome of the diaphragm to the symphysis pubis without oral contrast. 100 ml of Isovue 300 contrast was administered. Sagittal and coronal images were reconstructed. Individualized dose optimization techniques were used for this CT. COMPARISON: None. FINDINGS: Mild degree of the increased markings at the lung bases suggestive of bibasilar dependent atelectasis. Focally calcified pleural plaques at the right lung base. The visualized portions of the heart are within normal limits. Normal liver. There are multiple small gallstones along the dependent portion of the gallbladder.. There are multiple benign calcified granulomata of the spleen. Normal pancreas. Normal bilateral adrenal glands. There is a 1.9 cm x 1.5 cm cyst along the medial aspect of the midportion of the left kidney as well as a 1.6 cm cyst along the lateral portion of the right kidney. There is also evidence of a 1.6 cm cyst in the inferior pole of the right kidney. There is a 2.3 cm x 2.1 cm cyst in the posterior medial aspect of the upper pole of the left kidney. There is a small hiatal hernia. Normal small intestine. There are multiple colonic diverticula consistent with diverticulosis. The appendix is visualized and appears normal. There is scattered atherosclerotic calcification of the abdominal aorta, without a demonstrated aneurysm. Normal inferior vena cava. Normal retroperitoneum. Normal urinary bladder. There is enlargement of the prostate gland. It measures 4.9 cm x 5.2 cm. This causes indentation at the bladder base. There is enlargement of the seminal vesicles bilaterally more prominent on the left side. Normal abdominal wall. There are degenerative changes of the visualized lumbar spine. Minimal anterior listhesis of L4 on L5 without spondylolysis. CT/Abdomen/Pelvis W IV Cont ONLY IMPRESSION: Bilateral renal cysts. Enlarged prostate with indentation of the bladder base. Enlargement of the seminal vesicles more prominent on the left side. Small gallstones. Electronically Signed: Howard Wahl MD at 8:53 EDT Tel [phone], Service support , CC: Boy Verduzco III, MD; Carlos Wang MD Plastics Fitter: Signed BONE SCAN WHOLE Observed: 07/09/2017 Status: F Source: [place] BODY 9:59 AM REPOSITORY [facility] Imaging Services [address] [place] [id number] Bone Scan Whole Body MR#: [id number] Acct: [id number] Name: EVAN PALAFOX Rep #: [id number] : 1950 M 67 From: Hugo Fitzpatrick DO PCP: Boy Verduzco III, MD Status: REG CLI Study: Bone Scan Whole Body Date of Exam: 07/09/17 Exam# [id number] Ordering Dr: Carlos Wang MD CLINICAL: 67-year-old male with reported history of carcinoma of the prostate. WHOLE BODY 99m Tc MDP RADIONUCLIDE BONE SCINTIGRAPHY COMPARISON: None available FINDINGS: Following the intravenous administration of 2420 mCi of 99m Tc MDP, whole body bone images reveal: 1. Increased radiopharmaceutical concentration is identified in the sternoclavicular and acromioclavicular compartments of both shoulders, medial glenohumeral compartment of the right shoulder, bilateral elbow and wrist articulations, right-left hands, mid cervical spine posteriorly on the left, fifth lumbar vertebra posteriorly on the left and right, knees bilaterally. 2. The remaining skeletal structures are scintigraphically unremarkable with normal-appearing renal images and urinary bladder activity identified. Asymmetric increased uptake is noted in the greater trochanteric aspect of the left proximal femur most consistent with periostitis and/or trochanteric bursitis. NM/Bone Scan Whole Body IMPRESSION: 1. The increased radiopharmaceutical concentration identified in the bilateral shoulders, right and left elbows, wrist reticulations bilaterally, both hands, cervical and lumbar spine, knees bilaterally is most consistent with degenerative arthritis. 2. There is no definitive typical scintigraphic evidence of diffuse axial skeletal metastatic disease on the current examination. Electronically Signed: Hugo Fitzpatrick DO at 23:13 EDT Tel , Service support , CC: Boy Verduzco III, MD; Carlos Wang MD Plastics Fitter: Signed PROSTATE BIOPSY Observed: 07/01/2017 Status: F Source: [facility] 8:00 AM REPOSITORY Patient: EVAN PALAFOX : 1950 (67/M) Acct Num: [id number] Phys: Felipe SANDOVAL,Carlos Castro Unit Num: [id number] Loc: LABSPEC Specimen: [id number] Received: 07/01/171630 Spec Type: PROST BX TISSUES TISSUES: A. PROSTATE RIGHT B. PROSTATE RIGHT C. PROSTATE RIGHT D. PROSTATE LEFT E. PROSTATE LEFT F. PROSTATE LEFT GROSS DESCRIPTION A - Received is one container designated prostate, right apex. The specimen consists of two elongated fragments of light saucedo-white soft tissue measuring 0.5 and 1.5 cm in length and 0.1 cm in diameter. The specimen is totally submitted in one cassette. B - Received is one container designated prostate, right mid. The specimen consists of two elongated fragments of light saucedo-white soft tissue measuring 1.4 and 2 cm in length and 0.1 cm in diameter. The specimen is totally submitted in one cassette. C - Received is one container designated prostate, right base. The specimen consists of two elongated fragments of light saucedo-white soft tissue each measuring 1.5 cm in length and 0.1 cm in diameter. The specimen is totally submitted in one cassette. D - Received is one container designated prostate, left apex. The specimen consists of two elongated fragments of light saucedo-white soft tissue measuring 1 and 1.2 cm in length and 0.1 cm in diameter. The specimen is totally submitted in one cassette. E - Received is one container designated prostate, left mid. The specimen consists of two elongated fragments of light saucedo-white soft tissue each measuring 1.5 cm in length and 0.1 cm in diameter. The specimen is totally submitted in one cassette. F - Received is one container designated prostate, left base. The specimen consists of two elongated fragments of light saucedo-white soft tissue each measuring 1.8 cm in length and 0.1 cm in diameter. The specimen is totally submitted in one cassette. / SJ:christiano 07/02/17 TC:0 CPT: G0146 HEADER OPERATION: Prostate biopsy PRE-OP DIAGNOSIS: Elevated PSA TISSUE SUBMITTED: A - Right apex, B - Right mid, C - Right base, D - Left apex, E - Left mid, F - Left base MICROSCOPIC DESCRIPTION Slides are reviewed. MICROSCOPIC DIAGNOSIS A. Right prostate, apex, core biopsy: Adenocarcinoma: [place] grade: 8 (4+4) Cores involved: 1 out of 2 Tissue involved: 30% Greatest tumor length: 4.5 mm, discontinuous Perineural invasion: Positive B. Right prostate, mid, core biopsy: Adenocarcinoma: [place] grade: 7 (4+3) Cores involved: 2 out of 2 Tissue involved: 35% Greatest tumor length: 6 mm C. Right prostate, base, core biopsy: Adenocarcinoma: [place] grade: 7 (4+3) Cores involved: 2 out of 2 Tissue involved: 60% Greatest tumor length: 7 mm, discontinuous Perineural invasion: Positive D. Left prostate, apex, core biopsy: Adenocarcinoma: Jcarlos grade: 7 (4+3) Cores involved: 2 out of 2 Tissue involved: 70% Greatest tumor length: 5.5 mm, discontinuous E. Left prostate, mid, core biopsy: Adenocarcinoma: Jcarlos grade: 7 (4+3) Cores involved: 2 out of 2 Tissue involved: 95% Greatest tumor length: 10 mm, discontinuous Perineural invasion: Positive F. Left prostate, base, core biopsy: Adenocarcinoma: Jcarlos grade: 7 (4+3) Cores involved: 2 out of 2 Tissue involved: >95% Greatest tumor length: 12.5 mm, discontinuous Perineural invasion: Positive AM:christiano 07/03/17 PSA RESULTS No results available. Signed Pako Sincere 07/03/17 <signature on file> Performed By: #### PPROSBIL #### [facility] [address], [id number] CNPN Observed: 05/20/2017 Status: COMPLETED Source: [place] 12:00 AM [facility] RE[facility]ITORY [facility] EVAN PALAFOX ([id number]) 1950 M Date Time Provider Department 05/20/17 BYO VERDUZCO IIIMALIA During your visit today, we recorded the following information about you: Chary Burt LPN 05/20/2017 2:02 PM Signed ----- Message from Boy Verduzco III sent at 05/18/2017 2:30 PM EDT ----- Arturo, Excellent news--the free PSA strongly suggests a benign condition. Because I have never seen a PSA value increase 9 fold over a two year period, I still think a urology consultation would be helpful, but the course of action is quite likely to be non-surgical follow up of PSA values and prostate exams. TIFFANIE English MD, LPN 05/20/2017 2:03 PM Signed Left message to return Amanda Resendiz LPN 05/20/2017 3:41 PM Signed Patient called and information listed below. He is willing to see a Urologist. Who do you recommend? Also patient's phone numbers were updated. Amanda Resendiz LPN 05/20/2017 3:56 PM Signed Phone encounter from 04-29-17 has the doctor recommended he see is Dr. Wang. Will call patient and get apt scheduled. Spoke to patient and he wanted the phone number to call and scheduled himself. Amanda Resendiz LPN 05/22/2017 10:15 AM Signed Patient called and needed Information faxed to Dr. Wang's office. They will contact patient for apt. Amanda Resendiz LPN Allergies As of Date: 05/20/2017 (No Known Allergies) Date Reviewed: 04/24/2017 Reviewed by: Jeannette Hamilton LPN - Fully Assessed Reason for Visit: Results [95] Prescriptions as of 05/20/2017 Sig: LISINOPRIL 5 MG TABLET Take 1 tablet by mouth once d* ATORVASTATIN 40 MG TABLET Take 1 tablet by mouth once d* * BLOOD PRESSURE MONITOR KIT Use as directed to monitor bl* Problem List As Of Date 05/20/2017 Noted Resolved Hyperlipidemia LDL goal <100 [E78.5] INVALID FOR* FAMILY HX ISCHEM HEART DIS [Z82.49] INVALID FOR* PAIN IN JOINT, LOWER LEG [M25.569] INVALID FOR*06/29/2006 ELEV BL PRES W/O HYPERTN [R03.0] INVALID FOR*08/31/2006 BENIGN HYPERTENSION [I10] INVALID FOR* More... Arthritis of knee [M17.10] INVALID FOR* Lumbar disc disease with radiculopathy [M51.16] INVALID FOR* History of colonoscopy with polypectomy [Z98.89*INVALID FOR* Tubular adenoma of colon [D12.6] INVALID FOR* Lumbar stenosis with neurogenic claudication [M*INVALID FOR*04/25/2016 Elevated PSA [R97.20] INVALID FOR* Encounter Status:Closed by AMANDA RESENDIZ LPN on 05/20/17 PROGRESS Observed: 05/18/2017 Status: COMPLETED Source: [place] 2:30 PM [facility] REPOSITORY O ID: [id number] Author: Boy Verduzco III Service: (none) Author Type: Physician Type: Progress Notes Filed: 05/18/2017 2:30 PM Note Text: Arturo, Excellent news--the free PSA strongly suggests a benign condition. Because I have never seen a PSA value increase 9 fold over a two year period, I still think a urology consultation would be helpful, but the course of action is quite likely to be non-surgical follow up of PSA values and prostate exams. Boy Verduzco III MD PSA, FREE Collected: 05/16/2017 Status: F Source: [place] 8:29 AM [facility] REPOSITORY TYPE CODE TESTS RESULT OUT OF REFERENCE UNITS RANGE LAB PSA 0.00-2.59 ng/mL PSA, High Diagnostic 17.27 Result Comment: Total PSA test methodology used is the Electrochemiluminescence Immunoassay. For an individual patient, the significance of a PSA level should be interpreted in a broad clinical context, including age, race, family history, digital rectal exam, prostate size, results of prior te sting (prostate biopsy, free PSA, PCA3), and use of 5-alpha reductase inhibitors. Considering the high incidence of asymptomatic cancer in the general population that may not pose an ultimate risk to a patient, the decision to recommend urological evaluation or prostate biopsy should be individualized after consideration of all these factors. REFERENCE: Alexei Child M.D., M.P.H., Bismark Mendoza M.D., Ph.D., Wilbert Harmon M.D., Dinah Reagan, M.P.H., Mariana Crump Sc.D. Effect of Verification Bias on Screening for Prostate Cancer by Measurement of Prostatic Specific Antigen. N Engl J Med 2003,349:335-42. LAB PSAPER % PSA, Percent Free 45 DO NOT ORDER FOR SUPERIOR ONLY Result Comment: Less than 11% suggestive of prostate cancer. Greater than 23% suggestive of benign condition. Performed By: #### PSATF #### [facility] [address] [id number] PROGRESS Observed: 04/27/2017 Status: COMPLETED Source: [place] 2:21 PM [facility] REPOSITORY HNO ID: [id number] Author: Boy Verduzco III Service: (none) Author Type: Physician Type: Progress Notes Filed: 04/27/2017 2:21 PM Note Text: Arturo, The PSA is significantly elevated relative to the value 1 year ago. This should be evaluated by a urologist. Unfortunately, there is now only on urologist in [facility] (Dr. Wang) and it may take a while to get into see him. I can ask my staff to make an appointment for you to see a [facility] urologist or Dr. Wang if you wish. You may receive a prostate ultrasound and possible biopsy. Let us know. Boy Verduzco III, MD, JOSELINFP PROGRESS Observed: 04/27/2017 Status: COMPLETED Source: [place] 2:16 PM [facility] REPOSITORY HNO ID: [id number] Author: Boy Verduzco III Service: (none) Author Type: Physician Type: Progress Notes Filed: 04/27/2017 2:16 PM Note Text: Arturo, These are the lab results we discussed at the office appointment on 04/24/17. Boy Verduzco III, MD, LILI PSA, DIAGNOSTIC Collected: 04/24/2017 Status: F Source: [place] 9:45 AM [facility] REPOSITORY TYPE CODE TESTS RESULT OUT OF REFERENCE UNITS RANGE LAB PSA 0.00-2.59 ng/mL PSA, High Diagnostic 17.04 Result Comment: Total PSA test methodology used is the Electrochemiluminescence Immunoassay. For an individual patient, the significance of a PSA level should be interpreted in a broad clinical context, including age, race, family history, digital rectal exam, prostate size, results of prior te sting (prostate biopsy, free PSA, PCA3), and use of 5-alpha reductase inhibitors. Considering the high incidence of asymptomatic cancer in the general population that may not pose an ultimate risk to a patient, the decision to recommend urological evaluation or prostate biopsy should be individualized after consideration of all these factors. REFERENCE: Alexei Child M.D., M.P.H., Bismark Mendoza M.D., Ph.D., Wilbert Harmon M.D., Dinah Reagan, M.P.H., Mariana Crump Sc.D. Effect of Verification Bias on Screening for Prostate Cancer by Measurement of Prostatic Specific Antigen. N Engl J Med 2003,349:335-42. Performed By: #### PSA #### [facility] [employer] [address] [place], [place] [address] PROGRESS Observed: 04/24/2017 Status: COMPLETED Source: [place] 9:10 AM [facility] REPOSITORY HNO ID: [id number] Author: Boy Verduzco III Service: (none) Author Type: Physician Type: Progress Notes Filed: 04/24/2017 9:41 AM Note Text: SUBJECTIVE: Chief Complaint: Evan Palafox is a 67 year old male who presents for annual exam New concerns today include 1. hypertension 2. hyperlipidemia--good diet and regular exercise Exercises regularly Yes Prostate cancer screening up to date Yes PSA was 1.79 Colon cancer screening is up to date Yes Last colonoscopy was done 2013 Cholesterol screening up to date Yes Current Outpatient Prescriptions on File Prior to Visit: atorvastatin (LIPITOR) 40 mg tablet TAKE 1/2 TABLET BY MOUTH EVERY DAY lisinopril (ZESTRIL, PRINIVIL) 5 mg tablet Take 1 tablet by mouth once daily. Blood Pressure Monitor [facility] Use as directed to monitor blood pressure No current facility-administered medications on file prior to visit. PAST MEDICAL HISTORY Diagnosis Date - History of colonoscopy with polypectomy 09/2013 - Lumbar disc disease with radiculopathy 04/15/2014 - Mixed hyperlipidemia Hyperlipidemia - Tubular adenoma of colon 09/2013 - Unspecified essential hypertension Essential hypertension PAST SURGICAL HISTORY Procedure Laterality Date - COLONOSCOP W/ OR W/O [facility] SPEC 10/01/2013 Colonoscopy - MRI 02/17/2014 See scanned documents - [facility] - PAST SURGICAL HISTORY OF tendon repair hand FAMILY HISTORY Problem Relation Age of Onset - Diabetes Mother - Heart Mother - Coronary Artery Disease Brother 3 bro had CABG - Coronary Artery Disease Sister CABG Social History Marital status: Spouse name: Years of education: Number of children: 3 Occupational History Occupation Employer Comment [employer] Social History Main Topics Smoking status: Passive Smoke Exposure - Never Smoker Packs/day: 0.00 Years: 8.00 Types: Cigars Smokeless status: Never Used Alcohol use: Yes Comment: occasional Drug use: No Immunization History Administered Date(s) Administered Hepatitis A vaccine 06/25/2000 Hepatitis B Adult 06/25/2000 07/19/2000 Pneumovax 05/19/2013 Tdap (Age 7+) 11/23/2004 Tetanus Diphtheria Booster (Age >7) Pres Free 04/25/2016 ACTIVE PROBLEM LIST Hyperlipidemia Ldl Goal <100 Family History of Ischemic Heart Disease Essential Hypertension, Benign Arthritis of Knee Lumbar Disc Disease With Radiculopathy History of Colonoscopy With Polypectomy Tubular Adenoma of Colon REVIEW OF SYSTEMS General: Denies fever, chills, night sweats, or changes in weight. Dermatologic: Denies any new skin conditions, rashes or changing moles. Eyes: ENT: Respiratory: Denies any cough, dyspnea, or wheezing. Cardiovascular: Denies any chest pain with exertion or at rest, palpitations, syncope, or edema. Gastrointestinal: Denies any nausea, vomiting, abdominal pain, heartburn, changes in bowel habit, Denies any rectal bleeding. Genitourinary: Denies Denies problems with urinary stream., Denies dysuria, frequency, urgency, incontinence, erectile dysfunction, hematuria and nocturia. Musculoskeletal: Denies any joint swelling, crepitus, joint pain, or loss of range of motion., Denies back pain. Neurologic: Denies any headaches, tremors, dizziness, vertigo, memory loss, confusion., Denies weakness, numbness or tingling. Psychiatric: Denies any sleeping problems, history of abuse, marital discord., Denies any anxiety or depression. Hematologic/Lymphatic/Immunologic: Denies anemia, bruising, bleeding abnormalities. Endocrine: Denies any heat or cold intolerance, polyuria or polydipsia. OBJECTIVE: PHYSICAL EXAMINATION: BP 135/76 Pulse 80 Resp 20 Ht 171.5 cm (5' 7.5) Wt 91.2 kg (201 lb) BMI 31.02 kg/m2 GENERAL APPEARANCE Well appearing, alert, in no acute distress, well-hydrated, well nourished. SKIN: Skin color, texture, turgor normal, no suspicious rashes or lesions HEAD: No significant findings. NECK: Supple, no lymphadenopathy, normal thyroid, no carotid bruits and no JVD BACK: Back symmetric, Normal curvature, No CVAT. LUNGS: normal pulmonary exam and clear to auscultation and percussion HEART: Normal PMI, Regular rate and rhythm, Normal heart sounds, S1 and S2 and No murmurs. BREASTS: ABDOMEN: Soft, Non-tender, No palpable masses and No hepatosplenomegaly. EXTREMTIES: extremities normal, no deformities, no skin discoloration, no edema, normal pulses bilaterally. NEURO: Awake, alert and oriented x 3, Normal gait, No involuntary motions., muscle tone normal, muscle strength normal GENITALIA: Penis normal, no urethral discharge, scrotum normal to palpation, no hernias RECTAL: Anus normal, no anorectal masses, Prostate no nodules, and no tenderness, prostate 4/4 firm, smooth, Lab Results for EVAN PALAFOX P ( ) as of 04/24/2017 09:25 Ref. Range 04/18/2017 09:21 Sodium Latest Ref Range: 136 - 144 mmol/L 139 Potassium Latest Ref Range: 3.7 - 5.1 mmol/L 4.5 Chloride Latest Ref Range: 97 - 105 mmol/L 103 CO2 Latest Ref Range: 22 - 30 mmol/L 23 BUN Latest Ref Range: 9 - 24 mg/dL 18 Creatinine Latest Ref Range: 0.73 - 1.22 mg/dL 0.88 Glucose Latest Ref Range: 74 - 99 mg/dL 99 Calcium Latest Ref Range: 8.5 - 10.2 mg/dL 9.3 Anion Gap Latest Ref Range: 9 - 18 mmol/L 13 eGFR- Unknown >60 eGFR-All Other Races Latest Units: . >60 Cholesterol, Total Latest Ref Range: <200 mg/dL 174 Triglyceride Latest Ref Range: <150 mg/dL 75 Fasting Time Latest Units: hrs 12 HDL Cholesterol Latest Ref Range: >39 mg/dL 48 LDL Cholesterol Latest Ref Range: <100 mg/dL 111 (H) VLDL Cholesterol Latest Ref Range: <30 mg/dL 15 TC:HDL Ratio Latest Ref Range: <5.10 3.63 LDL:HDL Ratio Latest Ref Range: <2.54 2.31 Non HDL Cholesterol Latest Ref Range: <130 mg/dL 126 ASSESSMENT: BPH with significant increase in prostate size over past yr hyperlipidemia--not at goal hypertension--at goal strong FHx of ASHD no FHx of prostate cancer PLAN: healthy diet and regular exercise increase atorvastatin 40mg daily same dose of lisinopril 5mg daily PSA screening colonoscopy in 2019 TIFFANIE English MD, III MD CNOV Observed: 04/24/2017 Status: COMPLETED Source: [place] 9:00 AM [facility] REPOSITORY Office Visit ([facility]) JAVYEVAN P ([id number]) 1950 M Date Time Provider Department 04/24/17 9:00 AM BOY VERDUZCO III During your visit today, we recorded the following information about you: Pulse Respiration Blood pressure Weight 80/minute 20/minute 135/76 91.2 kg Height 1.715 m Boy Verduzco III MD 04/24/2017 9:41 AM Signed SUBJECTIVE: Chief Complaint: Evan Palafox is a 67 year old male who presents for annual exam New concerns today include 1. hypertension 2. hyperlipidemia--good diet and regular exercise Exercises regularly Yes Prostate cancer screening up to date Yes PSA was 1.79 Colon cancer screening is up to date Yes Last colonoscopy was done 2013 Cholesterol screening up to date Yes Current Outpatient Prescriptions on File Prior to Visit: atorvastatin (LIPITOR) 40 mg tablet TAKE 1/2 TABLET BY MOUTH EVERY DAY lisinopril (ZESTRIL, PRINIVIL) 5 mg tablet Take 1 tablet by mouth once daily. Blood Pressure Monitor [facility] Use as directed to monitor blood pressure No current facility-administered medications on file prior to visit. PAST MEDICAL HISTORY Diagnosis Date - History of colonoscopy with polypectomy 09/2013 - Lumbar disc disease with radiculopathy 04/15/2014 - Mixed hyperlipidemia Hyperlipidemia - Tubular adenoma of colon 09/2013 - Unspecified essential hypertension Essential hypertension PAST SURGICAL HISTORY Procedure Laterality Date - COLONOSCOP W/ OR W/O [facility] SPEC 10/01/2013 Colonoscopy - MRI 02/17/2014 See scanned documents - [facility] - PAST SURGICAL HISTORY OF tendon repair hand FAMILY HISTORY Problem Relation Age of Onset - Diabetes Mother - Heart Mother - Coronary Artery Disease Brother 3 bro had CABG - Coronary Artery Disease Sister CABG Social History Marital status: Spouse name: Years of education: Number of children: 3 Occupational History Occupation Employer Comment [employer] Social History Main Topics Smoking status: Passive Smoke Exposure - Never Smoker Packs/day: 0.00 Years: 8.00 Types: Cigars Smokeless status: Never Used Alcohol use: Yes Comment: occasional Drug use: No Immunization History Administered Date(s) Administered Hepatitis A vaccine 06/25/2000 Hepatitis B Adult 06/25/2000 07/19/2000 Pneumovax 05/19/2013 Tdap (Age 7+) 11/23/2004 Tetanus Diphtheria Booster (Age ANDgt;7) Pres Free 04/25/2016 ACTIVE PROBLEM LIST Hyperlipidemia Ldl Goal ANDlt;100 Family History of Ischemic Heart Disease Essential Hypertension, Benign Arthritis of Knee Lumbar Disc Disease With Radiculopathy History of Colonoscopy With Polypectomy Tubular Adenoma of Colon REVIEW OF SYSTEMS General: Denies fever, chills, night sweats, or changes in weight. Dermatologic: Denies any new skin conditions, rashes or changing moles. Eyes: ENT: Respiratory: Denies any cough, dyspnea, or wheezing. Cardiovascular: Denies any chest pain with exertion or at rest, palpitations, syncope, or edema. Gastrointestinal: Denies any nausea, vomiting, abdominal pain, heartburn, changes in bowel habit, Denies any rectal bleeding. Genitourinary: Denies Denies problems with urinary stream., Denies dysuria, frequency, urgency, incontinence, erectile dysfunction, hematuria and nocturia. Musculoskeletal: Denies any joint swelling, crepitus, joint pain, or loss of range of motion., Denies back pain. Neurologic: Denies any headaches, tremors, dizziness, vertigo, memory loss, confusion., Denies weakness, numbness or tingling. Psychiatric: Denies any sleeping problems, history of abuse, marital discord., Denies any anxiety or depression. Hematologic/Lymphatic/Immunologic: Denies anemia, bruising, bleeding abnormalities. Endocrine: Denies any heat or cold intolerance, polyuria or polydipsia. OBJECTIVE: PHYSICAL EXAMINATION: BP 135/76 Pulse 80 Resp 20 Ht 171.5 cm (5' 7.5ANDquot;) Wt 91.2 kg (201 lb) BMI 31.02 kg/m2 GENERAL APPEARANCE Well appearing, alert, in no acute distress, well-hydrated, well nourished. SKIN: Skin color, texture, turgor normal, no suspicious rashes or lesions HEAD: No significant findings. NECK: Supple, no lymphadenopathy, normal thyroid, no carotid bruits and no JVD BACK: Back symmetric, Normal curvature, No CVAT. LUNGS: normal pulmonary exam and clear to auscultation and percussion HEART: Normal PMI, Regular rate and rhythm, Normal heart sounds, S1 and S2 and No murmurs. BREASTS: ABDOMEN: Soft, Non-tender, No palpable masses and No hepatosplenomegaly. EXTREMTIES: extremities normal, no deformities, no skin discoloration, no edema, normal pulses bilaterally. NEURO: Awake, alert and oriented x 3, Normal gait, No involuntary motions., muscle tone normal, muscle strength normal GENITALIA: Penis normal, no urethral discharge, scrotum normal to palpation, no hernias RECTAL: Anus normal, no anorectal masses, Prostate no nodules, and no tenderness, prostate 4/4 firm, smooth, Lab Results for EVAN PALAFOX ( ) as of 04/24/2017 09:25 Ref. Range 04/18/2017 09:21 Sodium Latest Ref Range: 136 - 144 mmol/L 139 Potassium Latest Ref Range: 3.7 - 5.1 mmol/L 4.5 Chloride Latest Ref Range: 97 - 105 mmol/L 103 CO2 Latest Ref Range: 22 - 30 mmol/L 23 BUN Latest Ref Range: 9 - 24 mg/dL 18 Creatinine Latest Ref Range: 0.73 - 1.22 mg/dL 0.88 Glucose Latest Ref Range: 74 - 99 mg/dL 99 Calcium Latest Ref Range: 8.5 - 10.2 mg/dL 9.3 Anion Gap Latest Ref Range: 9 - 18 mmol/L 13 eGFR- Unknown ANDgt;60 eGFR-All Other Races Latest Units: . ANDgt;60 Cholesterol, Total Latest Ref Range: ANDlt;200 mg/dL 174 Triglyceride Latest Ref Range: ANDlt;150 mg/dL 75 Fasting Time Latest Units: hrs 12 HDL Cholesterol Latest Ref Range: ANDgt;39 mg/dL 48 LDL Cholesterol Latest Ref Range: ANDlt;100 mg/dL 111 (H) VLDL Cholesterol Latest Ref Range: ANDlt;30 mg/dL 15 TC:HDL Ratio Latest Ref Range: ANDlt;5.10 3.63 LDL:HDL Ratio Latest Ref Range: ANDlt;2.54 2.31 Non HDL Cholesterol Latest Ref Range: ANDlt;130 mg/dL 126 ASSESSMENT: BPH with significant increase in prostate size over past yr hyperlipidemia--not at goal hypertension--at goal strong FHx of ASHD no FHx of prostate cancer PLAN: healthy diet and regular exercise increase atorvastatin 40mg daily same dose of lisinopril 5mg daily PSA screening colonoscopy in 2018 TIFFANIE English MD, III MD Frank A Cebul, III MD 04/24/2017 9:37 AM Signed PLAN: healthy diet and regular exercise increase atorvastatin 40mg daily same dose of lisinopril 5mg daily PSA screening colonoscopy in 2019 Boy Verduzco III MD Referring Provider: SELF [200] Allergies As of Date: 04/24/2017 (No Known Allergies) Date Reviewed: 04/24/2017 Reviewed by: Jeannette Hamilton LPN - Fully Assessed Reason for Visit: Yearly Exam [187] Primary Visit Diagnosis:Family history of ischemic heart disease [Z82.49] Other Visit Diagnoses:Essential hypertension, benign [I10] Hyperlipidemia LDL goal <100 [E78.5] Tubular adenoma of colon [D12.6] BPH with obstruction/lower urinary tract symptoms [N40.1, N13.8] Encounter for routine adult medical exam with abnormal findings [Z00.01] Order(s):lisinopril (ZESTRIL, PRINIVIL) 5 mg tabletTake 1 tablet by mouth once daily.Disp: 90 tabletRfl: 3 atorvastatin (LIPITOR) 40 mg tabletTake 1 tablet by mouth once daily.Disp: 90 tabletRfl: 3 PSA/PROSTSPECAG DIAG [SQPSA] Order #: [id number] FUTURE Prescriptions as of 04/24/2017 Sig: LISINOPRIL 5 MG TABLET Take 1 tablet by mouth once d* ATORVASTATIN 40 MG TABLET Take 1 tablet by mouth once d* * BLOOD PRESSURE MONITOR KIT Use as directed to monitor bl* Problem List As Of Date 04/24/2017 Noted Resolved Hyperlipidemia LDL goal <100 [E78.5] INVALID FOR* FAMILY HX ISCHEM HEART DIS [Z82.49] INVALID FOR* PAIN IN JOINT, LOWER LEG [M25.569] INVALID FOR*06/29/2006 ELEV BL PRES W/O HYPERTN [R03.0] INVALID FOR*08/31/2006 BENIGN HYPERTENSION [I10] INVALID FOR* More... Arthritis of knee [M17.10] INVALID FOR* Lumbar disc disease with radiculopathy [M51.16] INVALID FOR* History of colonoscopy with polypectomy [Z98.89*INVALID FOR* Tubular adenoma of colon [D12.6] INVALID FOR* Lumbar stenosis with neurogenic claudication [M*INVALID FOR*04/25/2016 Other instructions from your clinician: PLAN: healthy diet and regular exercise increase atorvastatin 40mg daily same dose of lisinopril 5mg daily PSA screening colonoscopy in 2019 Boy Verduzco III MD Prescriptions ordered this encounter Disp Refills Start End LISINOPRIL 5 MG TABLET 90 t* 3 04/24/2017 Route: ORAL Sig: Take 1 tablet by mouth once daily. ATORVASTATIN 40 MG TABLET 90 t* 3 04/24/2017 04/24/2018 Route: ORAL Sig: Take 1 tablet by mouth once daily. Medications Discontinued During This Encounter gabapentin (NEURONTIN) 100 mg capsule 360 * 11 04/25/2016 04/24/2017 Class: Med Update Route: ORAL Sig: Take 4 capsules by mouth twice daily. Disc: Discontinued by Patient lisinopril (ZESTRIL, PRINIVIL) 5 mg * 90 t* 0 03/04/2017 04/24/2017 Cmt: This prescription was filled on 03/04/2017. Any refills authorized will be placed on file. Sig: Take 1 tablet by mouth once daily. Disc: Reason for discontinue is not on file. atorvastatin (LIPITOR) 40 mg tablet 45 t* 3 04/04/2017 04/24/2017 Cmt: This prescription was filled on 04/04/2017. Any refills authorized will be placed on file. Sig: TAKE 1/2 TABLET BY MOUTH EVERY DAY Disc: Reason for discontinue is not on file. Encounter Status:Closed by BOY VERDUZCO III, MD on 04/24/17 BASIC METABOLIC PANL Collected: 04/18/2017 Status: F Source: [place] 9:21 AM [facility] REPOSITORY TYPE CODE TESTS RESULT OUT OF REFERENCE UNITS RANGE LAB GLU 74-99 mg/dL Glucose 99 Result Comment: The [place] [employer] (ADA) provides guidance for cutoff values for fasting glucose and random glucose. The ADA defines fasting as no caloric intake for at least 8 hours. Fas ting plasma glucose results between 100 to 125 mg/dL indicate increased risk for diabetes (prediabetes). Fasting plasma glucose results greater than or equal to 126 mg/dL meet the criteria for diagnosis of diabetes. In the absence of unequivocal hyperglycemia, results should be confirmed by repeat testing. In a patient with classic symptoms of hyperglycemia or hyperglycemic crisis, random plasma glucose results greater than or equal to 200 mg/dL meet the criteria for diagnosis of diabetes. Reference: Standards of Medical Care in Diabetes 2016, [place] [employer]. Diabetes Care. 2016.39(Suppl 1). LAB BUN 9-24 mg/dL BUN 18 LAB CRET 0.73-1.22 mg/dL Creatinine 0.88 LAB NA 136-144 mmol/L Sodium 139 LAB K 3.7-5.1 mmol/L Potassium 4.5 LAB CL 97-105 mmol/L Chloride 103 LAB CO2 22-30 mmol/L CO2 23 LAB AGAP 9-18 mmol/L Anion Gap 13 LAB CA 8.5-10.2 mg/dL Calcium, Total 9.3 LAB GFRAA eGFR- Amer. >60 LAB GFRNAA . eGFR-All Other Races >60 Result Comment: eGFR (Estimated GFR) Units of measure: mL/min/1.73 meters squared eGFR is derived from the reexpressed MDRD Study equation using the following parameters: serum creatinine, age, gender and race. The creatinine assay has been calibrated to be traceable to IDMS. An eGFR <60 mL/min/1.73m2 for >3 months is consistent with chronic kidney disease. Refer to KDOQI guidelines for clinical interpretation. In patients with unstable renal function, e.g. those with acute kidney injury, the eGFR may not accurately reflect actual GFR. Performed By: #### BMP, LIPB #### [facility] [address] [place], [place] [address] LIPID PANEL, BASIC Collected: 04/18/2017 Status: F Source: [place] 9:21 AM [facility] REPOSITORY TYPE CODE TESTS RESULT OUT OF REFERENCE UNITS RANGE LAB CHOL <200 mg/dL Cholesterol 174 Result Comment: <200 mg/dL, Desirable 200-239 mg/dL, Borderline high >239 mg/dL, High LAB TRIGLY <150 mg/dL Triglyceride 75 Result Comment: <150 mg/dL, Normal 150-199 mg/dL, Borderline high 200-499 mg/dL, High >499 mg/dL, Very high LAB HDL >39 mg/dL HDL-Cholesterol 48 Result Comment: 40-59 mg/dL, Acceptable >59 mg/dL, High: Negative risk factor for coronary heart disease <40 mg/dL, Low: Positive risk factor for coronary heart disease LAB LDL <100 mg/dL LDL-Cholesterol High 111 Result Comment: <100 mg/dL, Optimal 100-129 mg/dL, Near optimal/above optimal 130-159 mg/dL, Borderline high 160-189 mg/dL, High >189 mg/dL, Very high Secondary prevention optimal LDL Cholesterol levels are recommended to be < 70 mg/dL LAB NONHDL <130 mg/dL Non HDL Cholesterol 126 Result Comment: <130 mg/dL, Optimal 130-159 mg/dL, Near optimal/above optimal 160-189 mg/dL, Borderline high 190-219 mg/dL, High >219 mg/dL, Very high Secondary prevention optimal non HDL Cholesterol levels are recommended to be < 100 mg/dL LAB FT hrs Fasting Time 12 LAB VLDL <30 mg/dL VLDL Cholesterol 15 LAB TCHDL <5.10 TC:HDL Ratio 3.63 LAB LDLHDL <2.54 LDL:HDL Ratio 2.31 Result Comment: Reference: 1. National Cholesterol Education Program ATP III Guideline At-A-Glance Quick Desk Reference: National Heart, Lung, and Blood [place]. National Institutes of Health. 2001: NIH Publication No. 01-3305. 2. An International Atherosclerosis Society position paper: global recommendations for the management of dyslipidemia: executive summary, Atherosclerosis. 2014: 232(2):410-413. Performed By: #### BMP, LIPB #### [facility] [address] [place] [id number] CNPTOUTREACH Observed: 04/09/2017 Status: COMPLETED Source: [place] 12:00 AM [facility] REPOSITORY Patient Outreach (INTMWH) EVAN PALAFOX ([id number]) 1950 M Date Time Provider Department 04/09/17 BOY VERDUZCO III INTM[facility] During your visit today, we recorded the following information about you: Allergies As of Date: 04/09/2017 (No Known Allergies) Date Reviewed: 09/14/2016 Reviewed by: Janell Gardner Ma - Fully Assessed Visit Diagnosis:Medication management [Z79.899] Order(s):BASIC METABOLIC PNL [SQBMP] Order #: [id number] FUTURE LIPID PANEL BASIC [SQLIPB] Order #: [id number] FUTURE Prescriptions as of 04/09/2017 Sig: X ATORVASTATIN 40 MG TABLET TAKE 1/2 TABLET BY MOUTH EVER* X LISINOPRIL 5 MG TABLET Take 1 tablet by mouth once d* X GABAPENTIN 100 MG CAPSULE Take 4 capsules by mouth twic* * BLOOD PRESSURE MONITOR KIT Use as directed to monitor bl* Problem List As Of Date 04/09/2017 Noted Resolved Hyperlipidemia LDL goal <100 [E78.5] INVALID FOR* FAMILY HX ISCHEM HEART DIS [Z82.49] INVALID FOR* PAIN IN JOINT, LOWER LEG [M25.569] INVALID FOR*06/29/2006 ELEV BL PRES W/O HYPERTN [R03.0] INVALID FOR*08/31/2006 BENIGN HYPERTENSION [I10] INVALID FOR* More... Arthritis of knee [M17.10] INVALID FOR* Lumbar disc disease with radiculopathy [M51.16] INVALID FOR* History of colonoscopy with polypectomy [Z98.89*INVALID FOR* Tubular adenoma of colon [D12.6] INVALID FOR* Lumbar stenosis with neurogenic claudication [M*INVALID FOR*04/25/2016 Encounter Status:Closed by Comenta TVR on 11/22/17 ALLERGIES ALLERGIES DATE TYPE / CODE NAME / CODE REACTION SEVERITY SOURCE 11/29/2017 Drug No Known Unknown [facility] Allergy/416 Allergies/I02279 Hospital 008207(SNOM 0388(RXNORM) Repository ED CT) Drug NO KNOWN [facility] Class/45079 ALLERGIES [place] 1003(SNOMED Repository CT) ENCOUNTERS ENCOUNTERS ADMIT/DISCHARGE ACCOUNT ADMITTING ENCOUNTER LOCATION SOURCE NUMBER CLASS 02/26/2018 [id number] [facility] ing:LAB Repository 12/24/2017 [id number] [facility] ing:CT Repository 12/23/2017 [id number] [facility] ing:LAB Repository 12/06/2017/12/07/[id number] ing:SDCRoom: Repository AC09 11/07/2017 [id number] [facility] ing:LAB Repository 08/21/2017/08/24/19 [id number] Carlos Wang Inpatient [address] ing:PA3Weje: Repository YA067Nas: 1 08/15/2017 [id number] Ambulatory [facility] ing:MRI Repository 08/15/2017 [id number] Ambulatory BMSBuilding:W [facility] Repository 07/11/2017 [id number] Ambulatory [facility] ing:CT Repository 07/09/2017 [id number] Ambulatory [facility] ing:NM Repository 07/01/2017 [id number] Ambulatory [facility] ing:LABSPEC Repository 05/16/2017 [id number] Ambulatory [facility] Repository 04/24/2017/04/25/19 [id number] Ambulatory [address] Repository 04/24/2017/04/26/19 [id number] Ambulatory [address] Repository 04/18/2017/04/19/19 [id number] Ambulatory [address] Repository PAYERS PAYERS ENCOUNTER GUARANTOR PAYER SUBSCRIBER SOURCE 02/26/2018 EVAN P Primary EVAN P Joey [id number] [facility] [id number] Number: Repository [address]Prr: 330 [id number] [phone] () Date:2018-02-26 02/26/2018 Secondary NOT GIVENUNK [place] Insurance:SELF PAY [facility] Number: Effective Repository Date:2018-02-26 12/24/2017 EVAN P Primary EVAN P Jeoy [id number] Insurance[facility] A [facility] [id number] Number: Repository [address]Iks: 330 [id number] [phone] () Date:2017-11-19 12/24/2017 Secondary NOT GIVENUNK [place] Insurance:SELF PAY [facility] Number: Effective Repository Date:2017-11-19 12/23/2017 EVAN P Primary EVAN P Joey [id number] Insurance:MEDICARE CHENEVEYDOB: Community [place] PART A [facility] [id number] Number: Repository [address]Yun: 330 [id number] [phone] () Date:2017-12-23 12/23/2017 Secondary NOT GIVENUNK Joey Insurance:SELF PAY [facility] Number: Effective Repository Date:2017-12-23 12/06/2017 EVAN P Primary EVAN P Joey [id number] Insurance:MEDICARE CHENEVEYDOB: Community [place] PART A [facility] [id number] Number: Repository 17[address]Qps: 330 [id number] [phone] () Date:2017-11-11 12/06/2017 Secondary NOT GIVENUNK [place] Insurance:SELF PAY [facility] Number: Effective Repository Date:2017-11-11 11/07/2017 Evan P Primary EVAN P [place] [id number] Insurance:MEDICARE CHENEVEYDOB: [place] PART A [facility] [id number] Number: Repository [address]Szy: 330 [id number] [phone] () Date:2017-11-07 11/07/2017 Secondary NOT GIVENUNK [place] Insurance:SELF PAY [facility] Number: Effective Repository Date:2017-11-07 08/21/2017 Evan P Primary EVAN P Joey [id number] Insurance:MEDICARE CHENEVEYDOB: [place] PART A [facility] [id number] Number: Repository [address]Ysi: 330 [id number] [phone] () Date:2017-07-23 08/21/2017 Secondary NOT GIVENUNK [place] Insurance:SELF PAY [facility] Number: Effective Repository Date:2017-07-23 08/15/2017 Evan P Primary EVAN P Joey [id number] Insurance:MEDICARE CHENEVEYDOB: [place] PART A [facility] [id number] Number: Repository [address]Ljw: 330 [id number] [phone] () Date:2017-07-29 08/15/2017 Secondary NOT GIVENUNK [place] Insurance:SELF PAY [facility] Number: Effective Repository Date:2017-07-29 08/15/2017 Evan P Primary EVAN P Joey [id number] Insurance:MEDICARE CHENEVEYDOB: [place] PART A [id number] [place] Number: Repository [address]Spb: 330 [id number] [phone] () Date:2017-07-29 08/15/2017 Secondary NOT GIVENUNK [place] Insurance:SELF PAY [facility] Number: Effective Repository Date:2017-08-15 07/11/2017 Evan P Primary EVAN P Joey [id number] Insurance:MEDICARE CHENEVEYDOB: [place] PART A [facility] [id number] Number: Repository [address]Bsg: 330 [id number] [phone] () Date:2017-07-04 07/11/2017 Secondary NOT GIVENUNK Joey Insurance:SELF PAY [facility] Number: Effective Repository Date:2017-07-04 07/09/2017 Evan P Primary EVAN P [place] [id number] Insurance:MEDICARE CHENEVEYDOB: [place] PART A [facility] [id number] [place] Number: Repository [address]Ylr: 330 [id number] [phone] () Date:2017-07-04 07/09/2017 Secondary NOT GIVENUNK Joey Insurance:SELF PAY [facility] Number: Effective Repository Date:2017-07-04 07/01/2017 Evan Primary EVAN P [place] [id number] Insurance:MEDICARE CHENEVEYDOB: [place] PART A [facility] [id number] Number: Repository [address]Qmy: [id number] [phone] Date:2017-07-01 () 07/01/2017 Secondary NOT GIVENUNK [place] Insurance:SELF PAY [facility]: Effective Repository Date:2017-07-01
== END ==
PROVIDERS: Family Provider Family Medicine; PCP Family Medicine; Referring Provider Radiology Radiation Oncology; Visit Provider Radiology Radiation Oncology
DX: C61 Malignant neoplasm of prostate (principal)
CPT/HCPCS: 36415; 85025

== ENCOUNTER → 2018-03-19 10:13 | Outpatient (CLI) | payer MEDICARE, SELFPAY ==
[2018-03-19 11:38] LABS: Absolute Lymphocyte Count 0.68 X10^3/ul (0.83-4.51); Absolute Neutrophil Count 2.3 X10^3/uL (2.0-7.7); Basophil# 0.04 X10^3/uL; Basophil% 1.1 % (0-1); Eosinophil# 0.17 X10^3/uL; Eosinophils% 4.6 % (0-5); Hematocrit 37.7 % (40-54); Hemoglobin 12.4 g/dl (13.0-16.5); Lymphocyte # 0.68 X10^3/ul (4.0); Lymphocyte % 18.2 % (19-41); Mean Corp Hgb Conc 32.9 g/gl (32-36); Mean Corpuscular Hgb 30.6 pg (27.0-32.0); Mean Corpuscular Volume 93.1 fL (80-94); Mean Platelet Vol. 10.8 fl (6.2-12.0); Monocyte# 0.52 X10^3/uL; Monocyte% 13.9 % (0-10); Neutrophil # 2.31 X10^3/uL (2.7-7.7); Neutrophil % 61.9 % (47-70); POSITIVE COUNT NO; POSITIVE DIFFERENTIAL NO; POSITIVE MORPHOLOGY NO; Platelet Count 182 K/mm3 (150-450); RBC Distribution Width CV 13.3 % (11.6-14.6); RBC Distribution Width SD 43.9 fl (35.1-43.9); Red Blood Count 4.05 M/mm3 (4.6-6.2); White Blood Count 3.7 K/mm3 (4.4-11.0)
== END ==
PROVIDERS: Family Provider Family Medicine; PCP Family Medicine; Referring Provider Radiology Radiation Oncology; Visit Provider Radiology Radiation Oncology
DX: C61 Malignant neoplasm of prostate (principal)
CPT/HCPCS: 36415; 85025

== ENCOUNTER → 2018-04-28 11:23 | Outpatient (CLI) | payer MEDICARE, SELFPAY ==
[2018-04-28 13:04] LABS: PSA,Total- Diagnostic < 0.01 ng/mL (0.0-4.0)
== END ==
PROVIDERS: Family Provider Family Medicine; PCP Family Medicine; Referring Provider Urology; Visit Provider Urology
DX: C61 Malignant neoplasm of prostate (principal)
CPT/HCPCS: 36415; 84153

== ENCOUNTER → 2018-07-29 | Outpatient (CLI) | payer MEDICARE, SELFPAY ==
[2018-07-29 12:13] LABS: PSA,Total- Diagnostic < 0.01 ng/mL (0.0-4.0)
== END | disposition home or self-care (01) ==
LOC: LAB 10:59
PROVIDERS: Family Provider Family Medicine; PCP Family Medicine; Referring Provider Urology; Visit Provider Urology
DX: R97.20 Elevated prostate specific antigen [PSA] (principal)
CPT/HCPCS: 36415; 84153

== ENCOUNTER → 2018-11-05 11:11 | Outpatient (CLI) | payer MEDICARE, SELFPAY ==
[2018-11-05 12:00] LABS: PSA,Total- Diagnostic < 0.01 ng/mL (0.0-4.0)
== END ==
PROVIDERS: Family Provider Family Medicine; PCP Family Medicine; Referring Provider Urology; Visit Provider Urology
DX: C61 Malignant neoplasm of prostate (principal)
CPT/HCPCS: 36415; 84153

== ENCOUNTER → 2019-02-16 09:26 | Outpatient (CLI) | payer MEDICARE, SELFPAY ==
[2019-02-16 10:56] LABS: Anion Gap 5 (5-15); BUN 13 mg/dL (7-18); BUN/Creat Ratio 15.6 RATIO (10-20); Calcium,Total 8.9 mg/dL (8.5-10.1); Chloride 104 mmol/L (98-107); Creatinine, Serum 0.83 mg/dL (0.70-1.30); EST Glomerular Filtration Rate 97 mL/min (>60); Est Glom Filt Rate - Afr Amer 117 mL/min (>60); Glucose 90 mg/dL (74-106); PSA,Total- Diagnostic < 0.01 ng/mL (0.0-4.0); Potassium 4.1 mmol/L (3.5-5.1); Sodium Level 137 mmol/L (136-145)
== END ==
PROVIDERS: Family Provider Family Medicine; PCP Family Medicine; Referring Provider Urology; Visit Provider Urology
DX: C61 Malignant neoplasm of prostate (principal)
CPT/HCPCS: 36415; 80048; 84153

== ENCOUNTER → 2019-05-28 08:40 | Outpatient (CLI) | payer MEDICARE, SELFPAY ==
[2019-05-28 10:41] LABS: PSA,Total- Diagnostic < 0.01 ng/mL (0.0-4.0)
== END ==
LOC: LAB.FUTURE 08:42 → LAB 05-29 06:52
PROVIDERS: PCP Family Medicine; Referring Provider Urology; Visit Provider Urology
DX: C61 Malignant neoplasm of prostate (principal)
CPT/HCPCS: 36415; 84153

== ENCOUNTER → 2019-08-31 08:42 | Outpatient (CLI) | payer MEDICARE, SELFPAY ==
[2019-08-31 10:13] LABS: PSA,Total- Diagnostic < 0.01 ng/mL (0.0-4.0)
== END ==
PROVIDERS: PCP Family Medicine; Referring Provider Urology; Visit Provider Urology
DX: C61 Malignant neoplasm of prostate (principal)
CPT/HCPCS: 36415; 84153

== ENCOUNTER → 2019-12-08 08:56 | Outpatient (CLI) | payer MEDICARE, SELFPAY ==
[2019-12-08 11:17] LABS: PSA,Total- Diagnostic < 0.01 ng/mL (0.0-4.0)
== END ==
PROVIDERS: PCP Family Medicine; Referring Provider Urology; Visit Provider Urology
DX: R97.21 Rising PSA following treatment for malignant neoplasm of prostate (principal)
CPT/HCPCS: 36415; 84153

== ENCOUNTER → 2020-03-14 09:37 | Outpatient (CLI) | payer MEDICARE, SELFPAY ==
[2020-03-14 10:40] LABS: PSA,Total- Diagnostic < 0.01 ng/mL (0.0-4.0)
== END ==
PROVIDERS: PCP Family Medicine; Referring Provider Urology; Visit Provider Urology
DX: C61 Malignant neoplasm of prostate (principal)
CPT/HCPCS: 36415; 84153

== ENCOUNTER → 2020-09-15 07:53 | Outpatient (CLI) | payer MEDICARE, SELFPAY ==
[2020-09-15 09:31] LABS: PSA,Total- Diagnostic < 0.01 ng/mL (0.0-4.0)
== END ==
PROVIDERS: Referring Provider Urology; Visit Provider Urology
DX: C61 Malignant neoplasm of prostate (principal)
CPT/HCPCS: 36415; 84153

== ENCOUNTER 2021-03-23 08:28 | Outpatient (CLI) | payer MEDICARE, SELFPAY ==
[2021-03-23 11:17] LABS: PSA,Total- Diagnostic < 0.01 ng/mL (0.0-4.0)
== END 2021-03-23 23:59 | disposition home or self-care (01) ==
LOC: LAB 08:31
PROVIDERS: PCP Family Medicine; Referring Provider Urology; Visit Provider Urology
DX: C61 Malignant neoplasm of prostate (principal)
CPT/HCPCS: 36415; 84153

== ENCOUNTER → 2021-09-14 | Outpatient (CLI) | payer MEDICARE, SELFPAY ==
[2021-09-14 09:46] LABS: PSA,Total- Diagnostic < 0.01 ng/mL (0.0-4.0)
== END | disposition home or self-care (01) ==
LOC: LAB 08:18
PROVIDERS: PCP Family Medicine; Visit Provider Urology
DX: C61 Malignant neoplasm of prostate (principal)
CPT/HCPCS: 36415; 84153

== ENCOUNTER → 2022-03-29 | Outpatient (CLI) | payer MEDICARE, SELFPAY ==
[2022-03-29 10:20] LABS: PSA,Total- Diagnostic < 0.01 ng/mL (0.0-4.0)
== END | disposition home or self-care (01) ==
PROVIDERS: PCP Family Medicine; Referring Provider Urology; Visit Provider Urology
DX: C61 Malignant neoplasm of prostate (principal)
CPT/HCPCS: 36415; 84153

== ENCOUNTER → 2022-10-02 | Outpatient (CLI) | payer MEDICARE, SELFPAY ==
[2022-10-02 11:21] LABS: PSA,Total- Diagnostic < 0.01 ng/mL (0.0-4.0)
== END | disposition home or self-care (01) ==
LOC: LAB 09:12
PROVIDERS: PCP Family Medicine; Referring Provider Urology; Visit Provider Urology
DX: C61 Malignant neoplasm of prostate (principal)
CPT/HCPCS: 36415; 84153

== ENCOUNTER → 2023-04-05 | Outpatient (CLI) | payer MEDICARE, SELFPAY ==
--- OUTSIDE RECORDS SUMMARY | 2023-04-05 10:09 | XMS RPT_ITS | CCD ---
Author Name Unknown Address [address] [facility] [address] [place] [address] Organization [facility] Care Team Providers Care Professor Of Kinesiology Name Role Phone Jose G Duke MD Primary Care Provider PODLOGAR, ELLYN Attending JOSE G Patel Primary Care UnavailJOSE G Mccann Primary Care Unavailab WangLOGELLYN DOW Referring Unavailable ELLYN GOLDSMITH Attending Unavailable JOSE G DUKE Primary Care Unavailab sarahi RANDALLLOGELLYN DOW Referring Unavailable JOSE G DUKE Primary Care UnavailJose G Mccann MD Primary Care Provider Medications Current Medications Medication Drug Class(es) Dates Sig (Normalized) Sig (Original) atorvastatin 40 mg oral tablet (11 sources) HMG-CoA Reductase Inhibitor Start: 10-17-2021 End: 02-16-2023 take 1 tablet by mouth once daily atorvastatin (LIPITOR) 40 mg tablet Take 1 tablet by mouth once daily. 90 tablet 1 08/20/2022 02/16/2023 Active Completed/Discontinued Medications Medication Drug Class(es) Dates Sig (Normalized) Sig (Original) Blood Pressure Monitor Misc Kit (9 sources) Start: 07-19-2006 Blood Pressure Monitor Misc Kit Use as directed to monitor blood pressure 1 0 07/19/2006 Active Problems Active Problems Problem Classification Problem Date Documented Date Episodic/Chronic Cancer of prostate (11 sources) Adenocarcinoma of prostate; Translations: [Malignant neoplasm of prostate] Onset: 07-01-2017 03-24-2018 Chronic Disorders of lipid metabolism (12 sources) Hyperlipidemia; Translations: [Hyperlipidemia, unspecified] Onset: 11-23-2004 04-11-2015 Chronic Essential hypertension (13 sources) Benign essential hypertension; Translations: [Essential (primary) hypertension] Onset: 08-31-2006 08-31-2006 Chronic Osteoarthritis (9 sources) Arthritis of knee; Translations: [Unilateral primary osteoarthritis, unspecified knee] Onset: 04-23-2012 04-23-2012 Chronic Other nervous system disorders (1 source) Numbness and tingling sensation of skin; Translations: [Anesthesia of skin] Episodic Past or Other Problems Problem Classification Problem Date Documented Date Episodic/Chronic Other and unspecified benign neoplasm (9 sources) Tubular adenoma of colon; Translations: [Benign neoplasm of colon, unspecified] Onset: 04-15-2014 04-15-2014 Episodic Other screening for suspected conditions (not mental disorders or infectious disease) (9 sources) Raised prostate specific antigen; Translations: [Elevated prostate specific antigen [PSA]] Onset: 05-11-2017 05-11-2017 Episodic Residual codes; unclassified (9 sources) Family history of ischemic heart disease; Translations: [Family history of ischemic heart disease and other diseases of the circulatory system] Onset: 11-23-2004 11-23-2004 Episodic Residual codes; unclassified (9 sources) History of colonoscopy; Translations: [Other specified postprocedural states] Onset: 04-15-2014 04-15-2014 Episodic Spondylosis; intervertebral disc disorders; other back problems (9 sources) Lumbar disc prolapse with radiculopathy; Translations: [Intervertebral disc disorders with radiculopathy, lumbar region] Onset: 04-15-2014 04-15-2014 Episodic Results Test Name Value Interpretation Reference Range Facil ity Vital Signs Date Time Vital Sign Value Performing Clinician Mariana tesfaye 06-26-2022 07:47-0400 Body weight 95.71 kg Ellyn Podlogar [employer] Work Phone: [facility] 06-26-2022 07:47-0400 Diastolic blood pressure 82 mm[Hg] Ellyn Podlogar [employer] Work Phone: [facility] 06-26-2022 07:47-0400 Heart rate 75 /min Ellyn Podlogar [employer] Work Phone: [facility] 06-26-2022 07:47-0400 Respiratory rate 16 /min Ellyn Podlogar [employer] Work Phone: [facility] 06-26-2022 07:47-0400 SaO2% (BldA) [Mass fraction] 96 % Ellyn Podlogar [employer] Work Phone: [facility] 06-26-2022 07:47-0400 Systolic blood pressure 128 mm[Hg] Ellyn Podlogar [employer] Work Phone: [facility] 12-26-2021 11:40-0500 Body height 170.2 cm Ellyn Podlogar [employer] Work Phone: [facility] 12-26-2021 11:40-0500 Body weight 94.44 kg Ellyn Podlogar [employer] Work Phone: [facility] 12-26-2021 11:40-0500 Diastolic blood pressure 74 mm[Hg] Ellyn Podlogar [employer] Work Phone: [facility] 12-26-2021 11:40-0500 Heart rate 86 /min Ellyn Podlogar [employer] Work Phone: [facility] 12-26-2021 11:40-0500 Respiratory rate 16 /min Ellyn Podlogar [employer] Work Phone: [facility] 12-26-2021 11:40-0500 SaO2% (BldA) [Mass fraction] 96 % Ellyn Podlogar [employer] Work Phone: [facility] 12-26-2021 11:40-0500 Systolic blood pressure 126 mm[Hg] Ellyn Podlogar [employer] Work Phone: [facility] Encounters Encounter Date Encounter Type Care Provider Facility Start: 08-20-2022 Mindy Duke MD Work Phone: [facility] Procedures Date Procedure Procedure Detail Performing Clinician Start: 05-29-2020 Adult depression scr eening assessment Trista Puentes MA Start: 12-23-2018 Colonoscopy Trista thorpe MA Plan of Treatment Date Care Activity Detail Author Start: 12-23-2028 Colonoscopy COLONOSCOPY [facility] Start: 12-23-2028 COLORECTAL CANCER SCREENING COLORECTAL CANCER SCREENING [facility] Start: 12-28-2026 LIPID SCREEN LIPID SCREEN [facility] Start: 04-25-2026 Urine microalbumin profile DTA P,TDAP,TD (3 - Td or Tdap) [facility] Start: 02-16-2026 LIPID SCREEN LIPID SCREEN [facility] Start: 06-26-2025 DIABETES SCREEN DIABETES SCREEN [facility] Start: 12-28-2024 DIABETES SCREEN DIABETES SCREEN [facility] Start: 02-17-2024 DIABETES SCREEN DIABETES SCREEN [facility] Start: 06-27-2023 ANNUAL PCP TEAM TWISTING OPERATOR SEBASTIAN DISEASE VISIT ANNUAL PCP TEAM CHRONIC DISEASE VISIT [facility] Start: 12-26-2022 ANNUAL PCP TEAM TWISTING OPERATOR SEBASTIAN DISEASE VISIT ANNUAL PCP TEAM CHRONIC DISEASE VISIT [facility] Start: 12-26-2022 BP CONTROLLED (<130/80) BP CONTROLLE D (<130/80) [facility] Start: 12-26-2022 PNEUMOCOCCAL: 65+ (2 - PCV) PNEUMOCOCCAL: 65+ (2 - PCV) [facility] Immunizations Immunization Date Immunization Notes Care Provider Osmin [email or web address] 10-22-2019 influenza, high-dose , quadrivalent vaccine (FLUZONE HIGH DOSE QUADRIVALENT) Trista Puentes [facility] 04-25-2016 tetanus and diphther ia toxoids, adsorbed, preservative free, for adult use (5 Lf of tetanus toxoid and 2 Lf of diphtheria toxoid) Trista Puentes MA [facility] 05-19-2013 pneumococcal polysaccharide vaccine, 23 valent Trista Puentes MA [facility] 11-23-2004 tetanus toxoid, redu leidy diphtheria toxoid, and acellular pertussis vaccine, adsorbed Trista Puentes [facility] Work Phone: 07-19-2000 hepatitis B vaccine, adult dosage Trista Puentes MA [facility] Work Phone: 06-25-2000 hepatitis A vaccine, unspecified formulation Trista Puentes MA [facility] Work Phone: 06-25-2000 hepatitis B vaccine, adult dosage Trista Puentes [facility] Work Phone: Payers Date Payer Category Payer Unknown [employer]IE [employer] O [id number] 2018-Present [phone] [address] [place] [address] O [id number] 2018 Unknown ANTHEM [employer]EB[employer] ISSA S AND BLUE [employer]IELD ALLIE STILL O [id number] 2018-Present [phone] [address] [place] [id number] O [id number] 2018 Unknown [id number] Social History Date Type Detail Facility Start: 02-16-2021 End: 06-26-2022 Tobacco smoking status NHIS Occasional tobacco smoker [facility] Work Phone: History of tobacco use Cigar Smoker [facility] Work Phone: Start: 02-16-2021 End: 06-26-2022 Tobacco use and exposure Smokeless tobacco non-user [facility] Work Phone: Start: 02-16-2021 End: 06-26-2022 Alcohol intake Current drinker of alcohol (finding) [facility] Start: 10-22-2019 End: 06-25-2022 History SDOH Alcohol Frequency 2 [facility] Start: 10-22-2019 End: 06-25-2022 History SDOH Alcohol Std Drinks 1 [facility] Start: 02-16-2021 History SDOH Alcohol Comment monthly [facility] Start: 10-22-2019 End: 06-25-2022 History SDOH Social Connections Phone 5 [facility] Start: 10-22-2019 End: 06-25-2022 History SDOH Social Connections Jainism 3 [facility] Start: 10-22-2019 History SDOH Physical Activity MPS 4 [facility] Start: 10-21-2019 Education 17 [facility] Start: 02-16-2021 End: 06-26-2022 Tobacco Comment once per week [facility] Start: 1950 Sex Assigned At Male [facility] Start: 12-26-2021 End: 06-25-2022 History SDOH Physical Activity MPS 6 [facility] Start: 06-25-2022 History SDOH Physical Activity MPS 15 [facility] Start: 06-24-2022 End: 06-26-2022 History of Social function [facility] Start: 06-24-2022 End: 06-26-2022 Social connection and isolation panel [facility] Do you belong to any clubs or organizations such as evangelical groups, unions, fraternal or athletic groups, or school groups? Yes [facility] Are you now , , , , never or living with a partner? [facility] How often to you hav e a drink containing alcohol? Monthly or less [facility] How many standard dr inks containing alcohol do you have on a typical day? 1 or 2 [facility] How often do you hav e 6 or more drinks on 1 occasion? Never [facility] How hard is it for y ou to pay for the very basics like food, housing, medical care, and heating Not hard at all [facility] Do you feel stress - tense, restless, nervous, or anxious, or unable to sleep at night because your mind is troubled all the time - these days [OSQ] Not at all [facility] (I/We) worried whegila er (my/our) food would run out before (I/we) got money to buy more. Never true [facility] In the past 12 month s, was there a time when you were not able to pay the mortgage or rent on time? No [facility] Start: 10-21-2019 Gender identity Identifies as male gender (finding) [facility] Start: 10-21-2019 Sexual orientation Heterosexual (finding) [facility] Clinical Notes 05-10-2014 to 08-20-2022 Telephone Encounter - Roxie Cox MA - 08/20/2022 9:48 AM Mary Goldsmith APRN.CNP - 06/26/2022 7:51 AM EDTTelephone Encounter - Nickie Baron LPN - 01/18/2022 8:28 AM EST Note Date & Type Note Facility 08-20-2022 Miscellaneous Notes Formattin g of this note is different from the original. Patient has been identified by name and date of : Yes Requested Prescriptions Pending Prescriptions Disp Refills atorvastatin (LIPITOR) 40 mg tablet 90 tablet 1 Sig: Take 1 tablet by mouth once daily. RX INSTRUCTIONS: Patient aware RX will be sent to pharmacy. No need to notify patient. Patient last office visit: 06/26/22 Patient next office visit: 06/28/23 Roxie Cox MA documented in this encounter [facility] 06-26-2022 Note HNO ID: [id number] Author: Ellyn Goldsmith APRN.[employer] Service: ? Author Type: Nurse Practitioner Type: Progress Notes Filed: 06/26/2022 8:18 AM Note Text: 06/26/2022 Patient presents with: F/U 6 months SUBJECTIVE: This is a 72 year old that is here today for Above Complaints. Since last office visit has been in good health without ER visits or hospitalizations. HTN: Patient is compliant with meds Yes Monitors bp at home: No. Denies side effects: No. Chest pain: No. Dyspnea: No. Edema: No. Palpitations: No. Syncope: No. Headache: No. Dizziness: No. HYPERLIPIDEMIA: Patient is taking medications: Yes. Patient is watching diet: Yes. Patient denies myalgias: Yes. Patient denies gi upset: Yes Follows with Dr. Evans for hx of adenocarcinoma of the prostate. Last office visit 03/29/2022. Denies urinary symptoms Still with some numbness and tingling in the right castaneda. Reports was given some exercises to do for his back but didn't seem to help. Admits to low back pain at times but says it is nothing serious and thinks it is just age related. Denies hx of back/leg injury or surgery, extremity weakness, saddle anaesthesia, urinary/bowel incontinence or other areas of numbness/tingling/ or weakness. PAST MEDICAL HISTORY Diagnosis Date Adenocarcinoma of prostate, stage 3 (HCC) 07/01/2017 poorly differentiated--Stage III, pT3b, N0, M0, G>=8, P10-20. Dr. Wang Benign prostatic hyperplasia with lower urinary tract symptoms Class 1 obesity due to excess calories without serious comorbidity with body mass index (BMI) of 33.0 to 33.9 in adult Elevated prostate specific antigen (PSA) History of colonoscopy with polypectomy 09/2013 Lumbar disc disease with radiculopathy 04/15/2014 Mixed hyperlipidemia Hyperlipidemia Tubular adenoma of colon 09/2013 Unspecified essential hypertension Essential hypertension ALLERGIES Patient has no known allergies. MEDICATIONS Current Outpatient Medications Medication Sig atorvastatin (LIPITOR) 40 mg tablet Take 1 tablet by mouth once daily. lisinopril (ZESTRIL, PRINIVIL) 20 mg tablet Take 1 tablet by mouth once daily. Blood Pressure Monitor [facility] Kit Use as directed to monitor blood pressure No current facility-administered medications for this visit. Medications and allergies reviewed by this provider. SOCIAL HISTORY Social History Tobacco Use Smoking status: Some Days Types: Cigars Smokeless tobacco: Never Tobacco comments: once per week Substance Use Topics Alcohol use: Yes Comment: monthly Drug use: No REVIEW OF SYSTEMS All other reviewed and negative other than HPI. OBJECTIVE: BP 128/82 Pulse 75 Resp 16 Wt 95.7 kg (211 lb) SpO2 96% BMI 33.05 kg/m? . Vital signs reviewed by this provider. APPEARANCE Well appearing, alert, in no acute distress, well-hydrated, well nourished. EYES conjunctiva and sclera normal. HEART RRR with normal S1 and S2, no murmurs, no gallops, no JVD appreciated LUNG clear to auscultation. No wheezes, rhonchi or rales BACK: Normal exam. FROM without pain. Negative SLR EXTREMITIES Extremities normal, No deformities, No skin discoloration, No edema, and Normal pulses bilaterally. NEURO Awake, alert and oriented x 3, Reflexes symmetrical, Normal gait, No involuntary motions., and negative findings: speech normal, mental status intact, muscle tone normal, muscle strength normal, sensation to light touch and pinprick normal to right lower and leg lower leg, reflexes normal and symmetric, plantar response downgoing bilaterally SKIN Skin color, texture, turgor normal, no suspicious rashes or lesions to exposed skin Component Latest Ref Rng AND Units 12/28/2021 Protein, Total 6.3 - 8.0 g/dL 6.6 Albumin 3.9 - 4.9 g/dL 4.3 Calcium 8.5 - 10.2 mg/dL 8.9 Bilirubin, Total 0.2 - 1.3 mg/dL 0.3 Alkaline Phosphatase 38 - 113 U/L 95 AST 14 - 40 U/L 26 ALT 10 - 54 U/L 20 Glucose 74 - 99 mg/dL 85 BUN 9 - 24 mg/dL 12 Creatinine 0.73 - 1.22 mg/dL 0.79 Sodium 136 - 144 mmol/L 140 Potassium 3.7 - 5.1 mmol/L 4.6 Chloride 97 - 105 mmol/L 105 CO2 22 - 30 mmol/L 24 Anion Gap 9 - 18 mmol/L 11 eGFR >=60 mL/min/1.73mA? 94 Cholesterol, Total <200 mg/dL 152 Triglyceride <150 mg/dL 63 HDL Cholesterol >39 mg/dL 53 Non HDL Cholesterol <130 mg/dL 99 Fasting Time hrs 12 VLDL Cholesterol <30 mg/dL 13 TC:HDL Ratio <5.10 2.87 LDL Cholesterol <100 mg/dL 86 LDL:HDL Ratio <2.54 1.62 ABDOMINAL AORTIC ANEURYSM SCREENING Never done COVID-19 VACCINE(1) Never done SHINGRIX VACCINE(1 of 2) Never done ADVANCE DIRECTIVE DISCUSSION Never done DEPRESSION ASSESSMENT Never done PNEUMOCOCCAL: 65+(2 - PCV) due on 12/26/2022 INFLUENZA(Season Ended) due on 10/12/2022 ANNUAL PCP TEAM CHRONIC DISEASE VISIT due on 12/26/2022 BP CONTROLLED (<130/80) due on 12/26/2022 DIABETES SCREEN due on 12/28/2024 DTAP,TDAP,TD(3 - Td or Tdap) due on 04/25/2026 LIPID SCREEN due on (more content not included)... [facility] 06-26-2022 History of Presen t illness Narrative 06/26/2022 Patient presents with: F/U 6 months SUBJECTIVE: This is a 72 year old that is here today for Above Complaints. Since last office visit has been in good health without ER visits or hospitalizations. HTN: Patient is compliant with meds Yes Monitors bp at home: No. Denies side effects: No. Chest pain: No. Dyspnea: No. Edema: No. Palpitations: No. Syncope: No. Headache: No. Dizziness: No. HYPERLIPIDEMIA: Patient is taking medications: Yes. Patient is watching diet: Yes. Patient denies myalgias: Yes. Patient denies gi upset: Yes Follows with Dr. Evans for hx of adenocarcinoma of the prostate. Last office visit 03/29/2022. Denies urinary symptoms Still with some numbness and tingling in the right castaneda. Reports was given some exercises to do for his back but didn't seem to help. Admits to low back pain at times but says it is nothing serious and thinks it is just age related. Denies hx of back/leg injury or surgery, extremity weakness, saddle anaesthesia, urinary/bowel incontinence or other areas of numbness/tingling/ or weakness. PAST MEDICAL HISTORY Diagnosis Date Adenocarcinoma of prostate, stage 3 (HCC) 07/01/2017 poorly differentiated--Stage III, pT3b, N0, M0, G>=8, P10-20. Dr. Wang Benign prostatic hyperplasia with lower urinary tract symptoms Class 1 obesity due to excess calories without serious comorbidity with body mass index (BMI) of 33.0 to 33.9 in adult Elevated prostate specific antigen (PSA) History of colonoscopy with polypectomy 09/2013 Lumbar disc disease with radiculopathy 04/15/2014 Mixed hyperlipidemia Hyperlipidemia Tubular adenoma of colon 09/2013 Unspecified essential hypertension Essential hypertension ALLERGIES Patient has no known allergies. MEDICATIONS Current Outpatient Medications Medication Sig atorvastatin (LIPITOR) 40 mg tablet Take 1 tablet by mouth once daily. lisinopril (ZESTRIL, PRINIVIL) 20 mg tablet Take 1 tablet by mouth once daily. Blood Pressure Monitor [facility] Kit Use as directed to monitor blood pressure No current facility-administered medications for this visit. Medications and allergies reviewed by this provider. SOCIAL HISTORY Social History Tobacco Use Smoking status: Some Days Types: Cigars Smokeless tobacco: Never Tobacco comments: once per week Substance Use Topics Alcohol use: Yes Comment: monthly Drug use: No REVIEW OF SYSTEMS All other reviewed and negative other than HPI. OBJECTIVE: BP 128/82 Pulse 75 Resp 16 Wt 95.7 kg (211 lb) SpO2 96% BMI 33.05 kg/m . Vital signs reviewed by this provider. APPEARANCE Well appearing, alert, in no acute distress, well-hydrated, well nourished. EYES conjunctiva and sclera normal. HEART RRR with normal S1 and S2, no murmurs, no gallops, no JVD appreciated LUNG clear to auscultation. No wheezes, rhonchi or rales BACK: Normal exam. FROM without pain. Negative SLR EXTREMITIES Extremities normal, No deformities, No skin discoloration, No edema, and Normal pulses bilaterally. NEURO Awake, alert and oriented x 3, Reflexes symmetrical, Normal gait, No involuntary motions., and negative findings: speech normal, mental status intact, muscle tone normal, muscle strength normal, sensation to light touch and pinprick normal to right lower and leg lower leg, reflexes normal and symmetric, plantar response downgoing bilaterally SKIN Skin color, texture, turgor normal, no suspicious rashes or lesions to exposed skin Component Latest Ref Rng & Units 12/28/2021 Protein, Total 6.3 - 8.0 g/dL 6.6 Albumin 3.9 - 4.9 g/dL 4.3 Calcium 8.5 - 10.2 mg/dL 8.9 Bilirubin, Total 0.2 - 1.3 mg/dL 0.3 Alkaline Phosphatase 38 - 113 U/L 95 AST 14 - 40 U/L 26 ALT 10 - 54 U/L 20 Glucose 74 - 99 mg/dL 85 BUN 9 - 24 mg/dL 12 Creatinine 0.73 - 1.22 mg/dL 0.79 Sodium 136 - 144 mmol/L 140 Potassium 3.7 - 5.1 mmol/L 4.6 Chloride 97 - 105 mmol/L 105 CO2 22 - 30 mmol/L 24 Anion Gap 9 - 18 mmol/L 11 eGFR >=60 mL/min/1.73m 94 Cholesterol, Total <200 mg/dL 152 Triglyceride <150 mg/dL 63 HDL Cholesterol >39 mg/dL 53 Non HDL Cholesterol <130 mg/dL 99 Fasting Time hrs 12 VLDL Cholesterol <30 mg/dL 13 TC:HDL Ratio <5.10 2.87 LDL Cholesterol <100 mg/dL 86 LDL:HDL Ratio <2.54 1.62 ABDOMINAL AORTIC ANEURYSM SCREENING Never done COVID-19 VACCINE(1) Never done SHINGRIX VACCINE(1 of 2) Never done ADVANCE DIRECTIVE DISCUSSION Never done DEPRESSION ASSESSMENT Never done PNEUMOCOCCAL: 65+(2 - PCV) due on 12/26/2022 INFLUENZA(Season Ended) due on 10/12/2022 ANNUAL PCP TEAM CHRONIC DISEASE VISIT due on 12/26/2022 BP CONTROLLED (<130/80) due on 12/26/2022 DIABETES SCREEN due on 12/28/2024 DTAP,TDAP,TD(3 - Td or Tdap) due on 04/25/2026 LIPID SCREEN due on 12/28/2026 COLORECTAL CANCER SCREENING due on 12/23/2028 HEPATITIS C SCREENING Discontinued ASSESSMENT/PLAN: 1. Essential hypertension, benign - ICD9: 401.1, ICD10: I10 (primary diagnosis) - good control - Continue current medication(s) - Encouraged dietary sodium restriction/DASH diet - Recommended regular aerobic exercise. - Recommend home blood pressure monitoring, to bring results in on next visit - Discussed need and benefit for weight loss. - Recheck in 1 year, sooner should new symptoms or problems arise. - Goal of BP <140/90 - Recommended no refined sugar, low refined starch, healthy oil intake (olive oil), healthy protein (fish) along the lines of the Mediterranean diet. 2. Adenocarcinoma of prostate, stage 3 (HCC) - ICD9: 185, ICD10: C61 - follow-up with Dr. Evans as recommended 3. Hyperlipidemia LDL goal <100 - ICD9: 272.4, ICD10: E78.5 - good control - Continue current medication. - Encouraged following a low fat, low cholesterol diet. - Discussed the benefits of regular aerobic exercise and weight loss. - Follow up in 6 months. - Encouraged following a low carbohydrate, healthy oil intake diet. 4. Numbness and tingling - ICD9: 782.0, ICD10: R20.0, R20.2 - unknown etiology - discussed EMG testing- patient declines at this time- he will let me know if he wants to pursue - no red flag symptoms or exam findings - red flag symptoms discussed, verbalizes understanding - follow-up as needed Ellyn Goldsmith APRN.CNP Prescription instructions reviewed with patient as applicable. Patient advised if symptoms do not improve or if symptoms worsen sooner, to contact their primary care physician. Potential red flag symptoms discussed with the patient. Reviewed appropriate action plan to take if red flag symptoms occur. Patient agreeable to treatment plan. I spent a total of 30 minutes on the date of the service which included preparing to see the patient, [id number] patient care, completing clinical documentation, obtaining and/or reviewing separately obtained history, performing a medically appropriate examination, and counseling and educating the patient/family/caregiver. documented in this encounter [facility] 01-18-2022 Miscellaneous Notes Formattin g of this note is different from the original. Patient phones requesting refills as follows: Requested Prescriptions Pending Prescriptions Disp Refills atorvastatin (LIPITOR) 40 mg tablet 90 tablet 1 Sig: Take 1 tablet by mouth once daily. [facility] 12/26/21 NOV 06/26/21 Please review and advise. Nickie Baron LPN documented in this encounter [facility] 01-02-2022 Miscellaneous Notes Formattin g of this note might be different from the original. Patient returned call and went over results, notes from Ellyn Goldsmith [employer]DOOR [employer] TRAINER with understanding. TC to patient. Message left to call back for update. Sandra Navarrete LPN Please call patient and let him know his blood work is normal. Continue current medications. Ellyn Goldsmith APRN.CALEB documented in this encounter [facility] 12-26-2021 Note HNO ID: [id number] Author: Ellyn Goldsmith APRN.CALEB Service: ? Author Type: Nurse Practitioner Type: Progress Notes Filed: 12/26/2021 12:01 PM Note Text: 12/26/2021 Patient presents with: Yearly Exam SUBJECTIVE: This is a 71 year old that is here today for Above Complaints. Since last office visit has been in good health without ER visits or hospitalizations. HX of prostate cancer: follows with Dr. Evans every six months. Also appointment in September. Denies urinary symptoms HTN: Patient is compliant with meds Yes Monitors bp at home: No. Denies side effects: Yes. Chest pain: No. Dyspnea: No. Edema: No. Palpitations: No. Syncope: No. Headache: No. Dizziness: No. HYPERLIPIDEMIA: Patient is taking medications: Yes. Patient is watching diet: Yes. Patient denies myalgias: Yes. Patient denies gi upset: Yes PAST MEDICAL HISTORY Diagnosis Date Adenocarcinoma of prostate, stage 3 (HCC) 07/01/2017 poorly differentiated--Stage III, pT3b, N0, M0, G>=8, P10-20. Dr. Wang Benign prostatic hyperplasia with lower urinary tract symptoms Class 1 obesity due to excess calories without serious comorbidity with body mass index (BMI) of 33.0 to 33.9 in adult Elevated prostate specific antigen (PSA) History of colonoscopy with polypectomy 09/2013 Lumbar disc disease with radiculopathy 04/15/2014 Mixed hyperlipidemia Hyperlipidemia Tubular adenoma of colon 09/2013 Unspecified essential hypertension Essential hypertension ALLERGIES Patient has no known allergies. MEDICATIONS Current Outpatient Medications Medication Sig atorvastatin (LIPITOR) 40 mg tablet Take 1 tablet by mouth once daily. lisinopril (ZESTRIL, PRINIVIL) 20 mg tablet Take 1 tablet by mouth once daily. Blood Pressure Monitor [facility] Use as directed to monitor blood pressure No current facility-administered medications for this visit. Medications and allergies reviewed by this provider. SOCIAL HISTORY Social History Tobacco Use Smoking status: Some Days Types: Cigars Smokeless tobacco: Never Tobacco comments: once per week Substance Use Topics Alcohol use: Yes Comment: monthly Drug use: No REVIEW OF SYSTEMS All other reviewed and negative other than HPI. OBJECTIVE: BP 126/74 Pulse 86 Resp 16 Ht 170.2 cm (5' 7 ) Wt 94.4 kg (208 lb 3.2 oz) SpO2 96% BMI 32.61 kg/m? . Vital signs reviewed by this provider. APPEARANCE Well appearing, alert, in no acute distress, well-hydrated, well nourished. EYES conjunctiva and sclera normal. NECK Supple, no adenopathy; thyroid symmetric, normal size, no bruits HEART RRR with normal S1 and S2, no murmurs, no gallops, no JVD appreciated LUNG clear to auscultation. No wheezes, rhonchi, or rales EXTREMITIES Extremities normal, No deformities, No skin discoloration, No edema, and Normal pulses bilaterally. SKIN Skin color, texture, turgor normal, no suspicious rashes or lesions to exposed skin Component Latest Ref Rng AND Units 02/16/2021 Total Cholesterol, Nonfasting <200 mg/dL 133 Triglycerides, Nonfasting <150 mg/dL 75 HDL Cholesterol, Nonfasting >39 mg/dL 39 (L) LDL Cholesterol, Nonfasting <100 mg/dL 79 Non HDL Cholesterol, Nonfasting <130 mg/dL 94 VLDL Cholesterol, Nonfasting <30 mg/dL 15 Total Chol/HDL Ratio, Nonfasting <5.10 mg/dL 3.41 LDL/HDL Ratio, Nonfasting <2.54 mg/dL 2.03 Component Latest Ref Rng AND Units 02/24/2021 WBC 3.70 - 11.00 k/uL 5.38 RBC 4.20 - 6.00 m/uL 4.43 Hemoglobin 13.0 - 17.0 g/dL 13.5 Hematocrit 39.0 - 51.0 % 40.8 MCV 80.0 - 100.0 fL 92.1 MCH 26.0 - 34.0 pG 30.5 MCHC 30.5 - 36.0 g/dL 33.1 RDW-CV 11.5 - 15.0 % 13.3 Platelet Count 150 - 400 k/uL 217 MPV 9.0 - 12.7 fL 10.5 Neut% % 45.5 Abs Neut (ANC) 1.45 - 7.50 k/uL 2.44 Lymph% % 34.4 Abs Lymph 1.00 - 4.00 k/uL 1.85 Barry% % 10.8 Abs Barry <0.87 k/uL 0.58 Eosin% % 7.8 Abs Eosin <0.46 k/uL 0.42 Baso% % 1.5 Abs Baso <0.11 k/uL 0.08 Nucleated Reds 0 /100 WBC 0.0 Absolute nRBC <0.01 k/uL <0.01 Diff Type Auto Diff Component Latest Ref Rng AND Units 02/16/2021 Protein, Total 6.3 - 8.0 g/dL 7.0 Albumin 3.9 - 4.9 g/dL 4.3 Calcium 8.5 - 10.2 mg/dL 9.2 Bilirubin, Total 0.2 - 1.3 mg/dL 0.2 Alkaline Phosphatase 38 - 113 U/L 109 AST 14 - 40 U/L 31 Glucose 74 - 99 mg/dL 88 BUN 9 - 24 mg/dL 11 Creatinine 0.73 - 1.22 mg/dL 0.81 Sodium 136 - 144 mmol/L 141 Potassium 3.7 - 5.1 mmol/L 4.3 Chloride 97 - 105 mmol/L 105 CO2 22 - 30 mmol/L 25 Anion Gap 9 - 18 mmol/L 11 ALT 10 - 54 U/L 29 eGFR- >60 eGFR-All Other Races . >60 ABDOMINAL AORTIC ANEURYSM SCREENING Never done ADVANCE DIRECTIVE DISCUSSION Never done DEPRESSION ASSESSMENT Never done SHINGRIX VACCINE(1 of 2) due on 02/16/2022 COVID-19 VACCINE(1) due on 02/16/2022 INFLUENZA(1) due on 08/10/2022 PNEUMOCOCCAL: 65+(2 - PCV) due on 12/26/2022 ANNUAL PCP TEAM CHRONIC DISEASE VISIT due on 02/16/2022 BP CONTROLLED (<130/80) due on 12/26 (more content not included)... [facility] 12-26-2021 History of Presen t illness Narrative 12/26/2021 Patient presents with: Yearly Exam SUBJECTIVE: This is a 71 year old that is here today for Above Complaints. Since last office visit has been in good health without ER visits or hospitalizations. HX of prostate cancer: follows with Dr. Evans every six months. Also appointment in September. Denies urinary symptoms HTN: Patient is compliant with meds Yes Monitors bp at home: No. Denies side effects: Yes. Chest pain: No. Dyspnea: No. Edema: No. Palpitations: No. Syncope: No. Headache: No. Dizziness: No. HYPERLIPIDEMIA: Patient is taking medications: Yes. Patient is watching diet: Yes. Patient denies myalgias: Yes. Patient denies gi upset: Yes PAST MEDICAL HISTORY Diagnosis Date Adenocarcinoma of prostate, stage 3 (HCC) 07/01/2017 poorly differentiated--Stage III, pT3b, N0, M0, G>=8, P10-20. Dr. Wang Benign prostatic hyperplasia with lower urinary tract symptoms Class 1 obesity due to excess calories without serious comorbidity with body mass index (BMI) of 33.0 to 33.9 in adult Elevated prostate specific antigen (PSA) History of colonoscopy with polypectomy 09/2013 Lumbar disc disease with radiculopathy 04/15/2014 Mixed hyperlipidemia Hyperlipidemia Tubular adenoma of colon 09/2013 Unspecified essential hypertension Essential hypertension ALLERGIES Patient has no known allergies. MEDICATIONS Current Outpatient Medications Medication Sig atorvastatin (LIPITOR) 40 mg tablet Take 1 tablet by mouth once daily. lisinopril (ZESTRIL, PRINIVIL) 20 mg tablet Take 1 tablet by mouth once daily. Blood Pressure Monitor [facility] Use as directed to monitor blood pressure No current facility-administered medications for this visit. Medications and allergies reviewed by this provider. SOCIAL HISTORY Social History Tobacco Use Smoking status: Some Days Types: Cigars Smokeless tobacco: Never Tobacco comments: once per week Substance Use Topics Alcohol use: Yes Comment: monthly Drug use: No REVIEW OF SYSTEMS All other reviewed and negative other than HPI. OBJECTIVE: BP 126/74 Pulse 86 Resp 16 Ht 170.2 cm (5' 7 ) Wt 94.4 kg (208 lb 3.2 oz) SpO2 96% BMI 32.61 kg/m . Vital signs reviewed by this provider. APPEARANCE Well appearing, alert, in no acute distress, well-hydrated, well nourished. EYES conjunctiva and sclera normal. NECK Supple, no adenopathy; thyroid symmetric, normal size, no bruits HEART RRR with normal S1 and S2, no murmurs, no gallops, no JVD appreciated LUNG clear to auscultation. No wheezes, rhonchi, or rales EXTREMITIES Extremities normal, No deformities, No skin discoloration, No edema, and Normal pulses bilaterally. SKIN Skin color, texture, turgor normal, no suspicious rashes or lesions to exposed skin Component Latest Ref Rng & Units 02/16/2021 Total Cholesterol, Nonfasting <200 mg/dL 133 Triglycerides, Nonfasting <150 mg/dL 75 HDL Cholesterol, Nonfasting >39 mg/dL 39 (L) LDL Cholesterol, Nonfasting <100 mg/dL 79 Non HDL Cholesterol, Nonfasting <130 mg/dL 94 VLDL Cholesterol, Nonfasting <30 mg/dL 15 Total Chol/HDL Ratio, Nonfasting <5.10 mg/dL 3.41 LDL/HDL Ratio, Nonfasting <2.54 mg/dL 2.03 Component Latest Ref Rng & Units 02/24/2021 WBC 3.70 - 11.00 k/uL 5.38 RBC 4.20 - 6.00 m/uL 4.43 Hemoglobin 13.0 - 17.0 g/dL 13.5 Hematocrit 39.0 - 51.0 % 40.8 MCV 80.0 - 100.0 fL 92.1 MCH 26.0 - 34.0 pG 30.5 MCHC 30.5 - 36.0 g/dL 33.1 RDW-CV 11.5 - 15.0 % 13.3 Platelet Count 150 - 400 k/uL 217 MPV 9.0 - 12.7 fL 10.5 Neut% % 45.5 Abs Neut (ANC) 1.45 - 7.50 k/uL 2.44 Lymph% % 34.4 Abs Lymph 1.00 - 4.00 k/uL 1.85 Barry% % 10.8 Abs Barry <0.87 k/uL 0.58 Eosin% % 7.8 Abs Eosin <0.46 k/uL 0.42 Baso% % 1.5 Abs Baso <0.11 k/uL 0.08 Nucleated Reds 0 /100 WBC 0.0 Absolute nRBC <0.01 k/uL <0.01 Diff Type Auto Diff Component Latest Ref Rng & Units 02/16/2021 Protein, Total 6.3 - 8.0 g/dL 7.0 Albumin 3.9 - 4.9 g/dL 4.3 Calcium 8.5 - 10.2 mg/dL 9.2 Bilirubin, Total 0.2 - 1.3 mg/dL 0.2 Alkaline Phosphatase 38 - 113 U/L 109 AST 14 - 40 U/L 31 Glucose 74 - 99 mg/dL 88 BUN 9 - 24 mg/dL 11 Creatinine 0.73 - 1.22 mg/dL 0.81 Sodium 136 - 144 mmol/L 141 Potassium 3.7 - 5.1 mmol/L 4.3 Chloride 97 - 105 mmol/L 105 CO2 22 - 30 mmol/L 25 Anion Gap 9 - 18 mmol/L 11 ALT 10 - 54 U/L 29 eGFR- >60 eGFR-All Other Races . >60 ABDOMINAL AORTIC ANEURYSM SCREENING Never done ADVANCE DIRECTIVE DISCUSSION Never done DEPRESSION ASSESSMENT Never done SHINGRIX VACCINE(1 of 2) due on 02/16/2022 COVID-19 VACCINE(1) due on 02/16/2022 INFLUENZA(1) due on 08/10/2022 PNEUMOCOCCAL: 65+(2 - PCV) due on 12/26/2022 ANNUAL PCP TEAM CHRONIC DISEASE VISIT due on 02/16/2022 BP CONTROLLED (<130/80) due on 12/26/2022 DIABETES SCREEN due on 02/17/2024 LIPID SCREEN due on 02/16/2026 DTAP,TDAP,TD(3 - Td or Tdap) due on 04/25/2026 COLORECTAL CANCER SCREENING due on 12/23/2028 HEPATITIS C SCREENING Discontinued ASSESSMENT/PLAN: 1. Essential hypertension, benign - ICD9: 401.1, ICD10: I10 (primary diagnosis) - good control - Continue current medication(s) - Encouraged dietary sodium restriction/DASH diet - Recommended regular aerobic exercise. - Recheck in 6 months, sooner should new symptoms or problems arise. - Goal of BP <140/90 - Recommended no refined sugar, low refined starch, healthy oil intake (olive oil), healthy protein (fish) along the lines of the Mediterranean diet. - LISINOPRIL 20 MG TABLET - COMP METABOLIC PANEL 2. Hyperlipidemia LDL goal <100 - ICD9: 272.4, ICD10: E78.5 - good control - Continue current medication. - Encouraged following a low fat, low cholesterol diet. - Discussed the benefits of regular aerobic exercise and weight loss. - Follow up in 6 months. - Encouraged following a low carbohydrate, healthy oil intake diet. - LIPID PANEL BASIC 3. Adenocarcinoma of prostate, stage 3 (HCC) - ICD9: 185, ICD10: C61 - continue to follow-up with urology as recommended Ellyn Goldsmith APRN.CALEB Prescription instructions reviewed with patient as applicable. Patient advised if symptoms do not improve or if symptoms worsen sooner, to contact their primary care physician. Potential red flag symptoms discussed with the patient. Reviewed appropriate action plan to take if red flag symptoms occur. Patient agreeable to treatment plan. I spent a total of 23 minutes on the date of the service which included preparing to see the patient, [id number] patient care, completing clinical documentation, obtaining and/or reviewing separately obtained history, performing a medically appropriate examination, counseling and educating the patient/family/caregiver, and ordering medications, tests, or procedures. documented in this encounter [facility] 12-25-2021 Miscellaneous Notes Formattin g of this note might be different from the original. pt. needs OV for refill of his lisinopril. He denies any sx. He has enough medication until tomorrow. Conf to AC to schedule appt. documented in this encounter [facility] 10-17-2021 Miscellaneous Notes Formattin g of this note is different from the original. Patient phones requesting refills as follows: Requested Prescriptions Pending Prescriptions Disp Refills atorvastatin (LIPITOR) 40 mg tablet 90 tablet 1 Sig: Take 1 tablet by mouth once daily. SALONI 02/16/21 NOV no upcoming appt noted Please review and advise. Nickie Baron LPN documented in this encounter [facility] 07-24-2021 Note HNO ID: [id number] Author: Trista Puentes MA Service: ? Author Type: Application Packaging Specialist Type: Progress Notes Filed: 07/24/2021 2:02 PM Note Text: POPULATION HEALTH NAVIGATION OUTREACH Action/I Patient is due for PCP follow up 08/16/21. Lmtctammy grant sent Pt identified by name and : NO Outreach Outcome/Action Unable to reach patient: Left message QuoVadist message sent Did you use a PCP flex slot to schedule this appointment? N/A Reason for Outreach Care Gap or Scheduling/Wellness visits Payer: Payor: [employer] / Plan: [employer] HMO / Product Type: HMO / Care Gap Reviewed:: Follow-up appointment Reminder: Reminder note to check Health Maintenance for items below Health Maintenance items due: ABDOMINAL AORTIC ANEURYSM SCREENING Never done PNEUMOCOCCAL: 65+(2 - PCV) due on 05/19/2014 BP CONTROLLED (<130/80) due on 10/21/2020 ADVANCE DIRECTIVE DISCUSSION Never done DEPRESSION SCREENING due on 05/29/2021 Message Sent to Practice: No Navigation Signature: Trista Puentes MA July 24, 2021 1:54 PM [facility] 07-24-2021 Note Patient Outreach (JEFFREY PARRISH) EVAN [place]AFOX ([id number]) 1950 M Date Time Provider Department 07/24/21 TRISTA PUENTES During your visit today, we recorded the following information about you: Trista Puentes MA 07/24/2021 2:02 PM Signed POPULATION HEALTH NAVIGATION OUTREACH Action/FYI Patient is due for PCP follow up 08/16/21. Lmtcb, mc sent Pt identified by name and : NO Outreach Outcome/Action Unable to reach patient: Left message MyChart message sent Did you use a PCP flex slot to schedule this appointment? N/A Reason for Outreach Care Gap or Scheduling/Wellness visits Payer: Payor: [employer] / Plan: [employer] HMO / Product Type: HMO / Care Gap Reviewed:: Follow-up appointment Reminder: Reminder note to check Health Maintenance for items below Health Maintenance items due: ABDOMINAL AORTIC ANEURYSM SCREENING Never done PNEUMOCOCCAL: 65+(2 - PCV) due on 05/19/2014 BP CONTROLLED (<130/80) due on 10/21/2020 ADVANCE DIRECTIVE DISCUSSION Never done DEPRESSION SCREENING due on 05/29/2021 Message Sent to Practice: No Navigation Signature: Trista Puentes MA July 24, 2021 1:54 PM Allergies As of Date: 07/24/2021 (No Known Allergies) Date Reviewed: 02/16/2021 Reviewed by: Frank Jules Ma - Fully Assessed Reason for Visit: Population Health Navigation Outreach [3910] Cmt: Allie Rosenbaum Prescriptions as of 07/24/2021 - atorvastatin (LIPITOR) 40 mg tablet Take 1 tablet by mouth once daily. - lisinopril (ZESTRIL, PRINIVIL) 20 mg tablet Take 1 tablet by mouth once daily. - Blood Pressure Monitor [facility] Use as directed to monitor blood pressure Problem List As Of Date 07/24/2021 Noted Resolved Hyperlipidemia LDL goal <100 [E78.5] 11/23/2004 FAMILY HX ISCHEM HEART DIS [Z82.49] 11/23/2004 PAIN IN JOINT, LOWER LEG [M25.569] 11/30/2005 06/29/2006 ELEV BL PRES W/O HYPERTN [R03.0] 06/29/2006 08/31/2006 BENIGN HYPERTENSION [I10] 08/31/2006 Arthritis of knee [M17.10] 04/23/2012 Lumbar disc disease with radiculopathy [M51.16] 04/15/2014 History of colonoscopy with polypectomy [Z98.89*04/15/2014 Tubular adenoma of colon [D12.6] 04/15/2014 Lumbar stenosis with neurogenic claudication [M*05/10/2014 04/25/2016 Elevated PSA [R97.20] 05/11/2017 Adenocarcinoma of prostate, stage 3 (HCC) [C61] 07/01/2017 Encounter Status:Closed by TRISTA PUENTES on 07/24/21 [facility] 07-24-2021 History of Presen t illness Narrative POPULATION HEALTH NAVIGATION OUTREACH Action/FYI Patient is due for PCP follow up 08/16/21. Lmtcbtammy sent Pt identified by name and : NO Outreach Outcome/Action Unable to reach patient: Left message MyChart message sent Did you use a PCP flex slot to schedule this appointment? N/A Reason for Outreach Care Gap or Scheduling/Wellness visits Payer: Payor: [employer] / Plan: [employer] HMO / Product Type: HMO / Care Gap Reviewed:: Follow-up appointment Reminder: Reminder note to check Health Maintenance for items below Health Maintenance items due: ABDOMINAL AORTIC ANEURYSM SCREENING Never done PNEUMOCOCCAL: 65+(2 - PCV) due on 05/19/2014 BP CONTROLLED (<130/80) due on 10/21/2020 ADVANCE DIRECTIVE DISCUSSION Never done DEPRESSION SCREENING due on 05/29/2021 Message Sent to Practice: No Navigation Signature: Trista Puentes MA July 24, 2021 1:54 PM documented in this encounter [facility] documented as of this encounter (statuses as of 07/24/2021) [facility] History of Past illness Narrative* Problem Noted Date Resolved Date Lumbar stenosis with neurogenic claudication 04/25/2016 Elevated blood pressure read ing without diagnosis of hypertension 06/29/2006 08/31/2006 Pain in joint, lower leg 11/30/2005 007 documented as of this encounter (statuses as of 10/17/2021) [facility] of Past illness Narrative* Problem Noted Date Resolved Date Lumbar stenosis with neurogenic claudication 04/25/2016 Elevated blood pressure read ing without diagnosis of hypertension 06/29/2006 08/31/2006 Pain in joint, lower leg 11/30/2005 007 documented as of this encounter (statuses as of 12/26/2021) [facility] of [facility] illness Narrative* Problem Noted Date Resolved Date Lumbar stenosis with neurogenic claudication 04/25/2016 Elevated blood pressure read ing without diagnosis of hypertension 06/29/2006 08/31/2006 Pain in joint, lower leg 11/30/2005 007 documented as of this encounter (statuses as of 12/26/2021) [facility] of [facility] illness Narrative* Problem Noted Date Resolved Date Lumbar stenosis with neurogenic claudication 04/25/2016 Elevated blood pressure read ing without diagnosis of hypertension 06/29/2006 08/31/2006 Pain in joint, lower leg 11/30/2005 007 documented as of this encounter (statuses as of 01/02/2022) [facility] of [facility] illness Narrative* Problem Noted Date Resolved Date Lumbar stenosis with neurogenic claudication 04/25/2016 Elevated blood pressure read ing without diagnosis of hypertension 06/29/2006 08/31/2006 Pain in joint, lower leg 11/30/2005 007 documented as of this encounter (statuses as of 01/18/2022) [facility] of [facility] Narrative* Problem Noted Date Resolved Date Lumbar stenosis with neurogenic claudication 04/25/2016 Elevated blood pressure read ing without diagnosis of hypertension 06/29/2006 08/31/2006 Pain in joint, lower leg 11/30/2005 007 documented as of this encounter (statuses as of 06/25/2022) [facility] of [facility] illness Narrative* Problem Noted Date Resolved Date Lumbar stenosis with neurogenic claudication 04/25/2016 Elevated blood pressure read ing without diagnosis of hypertension 06/29/2006 08/31/2006 Pain in joint, lower leg 11/30/2005 05/19/2 007 documented as of this encounter (statuses as of 06/26/2022) [facility] of [facility] illness Narrative* Problem Noted Date Diagnosed Date Resolved Date Lumbar stenosis with neurogenic claudication 5 04/25/2016 Elevated blood pressure read ing without diagnosis of hypertension 06/29/2006 08/31/2006 Pain in joint, lower leg 11/30/2005 documented as of this encounter (statuses as of 08/20/2022) [facility] Diagnosis Essential hypertension, benign- Primary Hyperlipidemia LDL goal <100 Other and unspecified hyperlipidemia Adenocarcinoma of prostate, stage 3 (HCC) Malignant neoplasm of prostate [facility] Diagnosis Essential hypertension, benign- Primary [facility] Diagnosis Essential hypertension, benign- Primary Adenocarcinoma of prostate, stage 3 (HCC) Malignant neoplasm of prostate Hyperlipidemia LDL goal <100 Other and unspecified hyperlipidemia Numbness and tingling Disturbance of skin sensation documented in this encounter [facility] Summary Purpose Family History No Family History Records FoundNo Family History Records Found Advance Directives Documents on File Type Date Recorded Patient Social Media Director Expl anation Advance Directive(s) 12/23/2018 5:57 AM Additional Source Comments (unrecognized sect ion and content) No Status Records FoundNo Status Records Found INFORMATION SOURCE (unrecogn ized section and content) DATE CREATED AUTHOR AUTHOR'S ORGANIZ ATION 06/27/2022 [facility] Source Comments (unrecognize d section and content) In the event this informatio n is protected by the Federal Confidentiality of Alcohol and Drug Abuse Patient Records regulations: The Federal rules restrict any use of the information to criminally investigate or prosecute any alcohol or drug abuse patient.[facility] the event this information is protected by the Federal Confidentiality of Alcohol and Drug Abuse Patient Records regulations: The Federal rules restrict any use of the information to criminally investigate or prosecute any alcohol or drug abuse patient.[facility] the event this information is protected by the Federal Confidentiality of Alcohol and Drug Abuse Patient Records regulations: The Federal rules restrict any use of the information to criminally investigate or prosecute any alcohol or drug abuse patient.[facility] the event this information is protected by the Federal Confidentiality of Alcohol and Drug Abuse Patient Records regulations: The Federal rules restrict any use of the information to criminally investigate or prosecute any alcohol or drug abuse patient.[facility] the event this information is protected by the Federal Confidentiality of Alcohol and Drug Abuse Patient Records regulations: The Federal rules restrict any use of the information to criminally investigate or prosecute any alcohol or drug abuse patient.[facility] the event this information is protected by the Federal Confidentiality of Alcohol and Drug Abuse Patient Records regulations: The Federal rules restrict any use of the information to criminally investigate or prosecute any alcohol or drug abuse patient.[facility] the event this information is protected by the Federal Confidentiality of Alcohol and Drug Abuse Patient Records regulations: The Federal rules restrict any use of the information to criminally investigate or prosecute any alcohol or drug abuse patient.[facility] the event this information is protected by the Federal Confidentiality of Alcohol and Drug Abuse Patient Records regulations: The Federal rules restrict any use of the information to criminally investigate or prosecute any alcohol or drug abuse patient.[facility] the event this information is protected by the Federal Confidentiality of Alcohol and Drug Abuse Patient Records regulations: The Federal rules restrict any use of the information to criminally investigate or prosecute any alcohol or drug abuse patient.[facility] Reason for Visit (unrecogniz ed section and content) Reason Onset Date Comments Refill Request 10/16/2021 Reason Comments Refill Request Reason Comments Yearly Exam Reason Comments Results Reason Onset Date Comments Refill Request 01/18/2022 Reason Comments F/U 6 months Reason Onset Date Comments Refill Request 08/20/2022 Care Teams (unrecognized sec tion and content) Professor Of Kinesiology Relationship Specialty Start Date End Date Jose G Duke MD [address] [place] [address] PCP - General Family Practice 02/15/21 Professor Of Kinesiology Relationship Specialty Start Date End Date Jose G Duke MD [address] [facility] [place] [address] PCP - General Family Medicine 02/15/21 Professor Of Kinesiology Relationship Specialty Start Date End Date Jose G Duke MD [address] [place] [address] PCP - General Family Medicine 02/15/21 Professor Of Kinesiology Relationship Specialty Start Date End Date Jose G Duke MD [address] [place] [address] PCP - General Family Medicine 02/15/21 Professor Of Kinesiology Relationship Specialty Start Date End Date Jose G Duke MD [address] [place] [address] PCP - General Family Medicine 02/15/21 Professor Of Kinesiology Relationship Specialty Start Date End Date Jose G Duke MD [address] [place] [address] PCP - General Family Medicine 02/15/21 Professor Of Kinesiology Relationship Specialty Start Date End Date Jose G Duke MD [address] [place] [address] PCP - General Family Medicine 02/15/21 Professor Of Kinesiology Relationship Specialty Start Date End Date Jose G Duke MD [address] [place] [address] PCP - General Family Medicine 02/15/21 FOR RECORDS PERTAINING TO PATIENTS WHO ARE OR HAVE BEEN ENROLLED IN A CHEMICAL DEPENDENCY/SUBSTANCEABUSE PROGRAM, SOME INFORMATION MAY BE OMITTED. This clinical summary was aggregated from multiple sources. Caution should be exercised in using it in the provision of clinical care. This summary normalizes information from multiple sources, and as a consequence, information in this document may materially change the coding, format and clinical context of patient data. In addition, data may be omitted in some cases. CLINICAL DECISIONS SHOULD BE BASED ON THE PRIMARY CLINICAL RECORDS. [employer] provides no warranty or guarantee of the accuracy or completeness of information in this document.
[2023-04-05 11:22] LABS: PSA,Total- Diagnostic < 0.01 ng/mL (0.0-4.0)
== END | disposition home or self-care (01) ==
LOC: LAB 09:38
PROVIDERS: PCP Family Medicine; Referring Provider Urology; Visit Provider Urology
DX: C61 Malignant neoplasm of prostate (principal)
CPT/HCPCS: 36415; 84153

== ENCOUNTER → 2023-09-05 | Outpatient (CLI) | payer MEDICARE, SELFPAY ==
[2023-09-05 11:12] LABS: PSA,Total- Diagnostic < 0.01 ng/mL (0.0-4.0)
== END | disposition home or self-care (01) ==
LOC: LAB 09:57
PROVIDERS: PCP Family Medicine; Referring Provider Urology; Visit Provider Urology
DX: C61 Malignant neoplasm of prostate (principal)
CPT/HCPCS: 36415; 84153

== ENCOUNTER → 2024-05-20 | Outpatient (CLI) | payer MEDICARE, SELFPAY ==
[2024-05-20 16:22] LABS: PSA,Total - Annual Screen < 0.02 ng/mL (0.02-4.00)
== END | disposition home or self-care (01) ==
LOC: LAB 13:40
PROVIDERS: PCP Family Medicine; Referring Provider Nurse Practitioner; Visit Provider Nurse Practitioner
DX: C61 Malignant neoplasm of prostate (principal)
CPT/HCPCS: 36415; 84153; G0103

== ENCOUNTER → 2024-11-26 | Outpatient (CLI) | payer MEDICARE, SELFPAY ==
[2024-11-26 10:49] LABS: PSA,Total- Diagnostic < 0.02 ng/mL (0.00-4.00)
== END | disposition home or self-care (01) ==
LOC: LAB 08:32
PROVIDERS: PCP Family Medicine; Referring Provider Urology; Visit Provider Urology
DX: C61 Malignant neoplasm of prostate (principal)
CPT/HCPCS: 36415; 84153